=== PATIENT | female | born 1950 | race Caucasian/White ===

== ENCOUNTER 2023-11-09 21:36 | Inpatient (IN) | payer MEDICARE, SELFPAY ==
[2023-11-09] VITALS (8 sets, daily range): BP systolic 131–194; BP diastolic 87–167; BMI 45.3
--- NOTE | 2023-11-09 19:08 | ED.GENMED ---
History of Present Illness
General
Chief Complaint: Abdominal Symptoms
Source: patient and ambulance crew
Exam Limitations: altered mental status
Time Seen by Provider: 11/09/23 19:06
History of Present Illness
History of Present Illness:
See MDM
Past History
Past History
ED Past Medical History: Asthma, GERD, HTN, Hypercholesterolemia, NIDDM and Other (Gout)
ED Past Surgical History: Gynecological (D and C.)
Social History
Tobacco: Former smoker
Drug: None
Phy Exam
Physical Exam
Physical Exam:
See MDM
Course
Orders/Labs/Results
Orders:
Orders
11/09/23 19:06
CT Head W/o Iv Contrast Urgent
Comment:
Reason For Exam: Possible fall, found on ground, confused
IV Insert/Care/Rem.- Treatment PRN
0.9% Sodium Chloride 1000 ml [Nss] 1,000 ml IV BOLUS
Pantoprazole 80 mg/100 ml Nss [Protonix] 80 mg in 100 ml IV NOW
Pantoprazole [Protonix IV] 80 mg IV NOW STA
11/09/23 19:07
Electrocardiogram (*1) Stat
Reason for Study: Other
Other Reason for Exam: GI Bleed
EKG- Treatment ONCE
11/09/23 19:20
CT Cervical Spine W/o Iv Contr Urgent
Comment:
Reason For Exam: Possible fall, on ground, neck pain
11/09/23 19:27
Type+Screen Urgent
CPK [Creatine Phosphokinase] Urgent
Complete Blood Count/With Diff Urgent
Comprehensive Metabolic Panel Urgent
Lipase Urgent
11/09/23 20:14
PTT Urgent
Prothrombin Time Urgent
11/09/23 20:33
Urinalysis Urgent
11/09/23 20:34
Alcohol Urgent
Urine Drug Abuse Screen Urgent
11/09/23 21:01
CT Abd/pelvis W Iv Cont Urgent
Comment:
Reason For Exam: Mid abd pain, vomiting blood
Abnormal Lab Results
11/09/23
19:27
WBC 12.4 H 10^3/uL
(4.8-10.8)
RBC 5.94 H 10^6/uL
(4.20-5.40)
Hgb 18.6 H g/dL
(12.0-16.0)
Hct 54.1 H %
(37.0-47.0)
MCH 31.3 H pg
(27.0-31.0)
Abs Immat Gran (auto) 0.1 H 10^3/uL
(0-0.05)
Absolute Neuts (auto) 11.2 H 10^3/uL
(1.4-6.5)
Absolute Lymphs (auto) 0.6 L 10^3/uL
(1.2-3.4)
Neutrophils % 90.2 H %
(42.2-75.2)
Lymphocytes % 5.0 L %
(20.5-51.1)
Potassium 3.3 L mmol/L
(3.5-5.1)
Chloride 97 L mmol/L
(98-107)
BUN 26 H mg/dl
(7-17)
Creatinine 1.3 H mg/dL
(0.6-1.0)
Glucose 169 H mg/dl
(70-99)
Calcium 11.1 H mg/dl
(8.4-10.2)
Total Bilirubin 1.6 H mg/dl
(0.2-1.3)
AST 58 H U/L
(14-36)
Creatine Kinase 563 H U/L
(30-135)
Total Protein 8.5 H g/dl
(6.3-8.2)
11/09/23 19:27
11/09/23 19:27
Vital Signs
Initial and Last Documented VS:
Initial Vital Signs
Temp Pulse Pulse Ox
98.4 F 120 94
11/09/23 19:08 11/09/23 19:08 11/09/23 19:08
Last Documented Vital Signs
Temp Pulse Resp BP Pulse Ox
98.4 F 113 20 145/116 95
11/09/23 19:08 11/09/23 20:30 11/09/23 20:30 11/09/23 20:02 11/09/23 20:37
Procedures
IV Access
Indication: RN unable to obtain and Physician skill needed
Performed by:: Phoenix Gonzales DO
Site:: R arm
Gauge:: 18
Ultrasound Guidance: Yes
MDM/Problems Addressed
Differential Diagnosis Includes:
HPI and MDM Narrative:
73-year-old female presenting for evaluation of altered mental status and black vomit. Patient lives alone and the family was having trouble reaching out to her. They visited her and found her on the ground. Her face was covered in black vomit.
Patient is awake and alert but cannot recall if she fell and cannot recall how long she has been on the floor
Patient is confused but is awake and alert. Will obtain CT head. Will treat this is an upper GI bleed and start Protonix bolus and drip and ultimately admit
Physical exam
General: Well appearing and non-toxic
HEENT: protecting airway. Black vomit particles in oromucosa and face
Neck: appears supple
CV: No evidence of cyanosis. Tachycardia
Resp: No accessory muscle use
Abd: Non-distended. mid abd pain
Extremities: No deformities
Neuro: alert
Psych: Anxious
Skin: Intact
Problems Addressed including Acute and Chronic Conditions affecting care:
1. Upper GI bleed
Acuity: acute
Prognosis: unstable
Details: Will start Protonix drip and ultimately admit
2. Altered mental status
Acuity: acute
Prognosis: stable
Details: Will obtain CT head and basic blood work
Update: Case discussed with hospitalist. The CT head suggested motion artifact versus small subarachnoid. Will repeat CT head in a few hours. Given her abdominal pain and her symptoms, will obtain CT abdomen/pelvis
Differential Diagnosis (but not limited to): Symptomatic anemia, intracranial hemorrhage, upper GI bleed
Testing considered: CT abdomen/pelvis but no tenderness elicited
Drug therapy (if applicable): OTC meds, please see d/c instruction regarding Rx drugs
Amount and/or Complexity of Data Reviewed
Clinical info obtained from: Patient
External data reviewed: N/A
Labs I independently reviewed (but not limited to): Mild CPK elevation. Hemoglobin elevated. Mild leukocytosis
Radiology: The CT scan was personally and independently reviewed. In addition, official CT report reviewed.
Pulse Ox: not hypoxic
EKG independently reviewed: N/A
Mmi Teacher: N/A
Critical Care: The high probability of a clinically significant, sudden or life threatening deterioration of the gastrointestinal system(s) required my full and direct attention, intervention and personal management. The aggregate critical care time
was 31 minutes. This time is in addition to time spent performing reported procedures but includes the following:
[x] Data Review and interpretation
[x] Patient assessment and monitoring of vital signs
[x] Documentation
[x] Medication orders and management
Risk of Complication:
Social Determinants of health: Good social support
Discussed with other providers: Hospitalist
Escalation of Care includes Admit/Obs: Given concern for upper GI bleeding and altered mental status, will admit
Occasional wrong word or 'sound a like' substitutions may have occurred due to the inherent limitations of voice recognition software. Read the chart carefully and recognize, using context, where substitutions have occurred.
*Critical Care Note
Total Time (30-74mins, 75-104mins- exclusive of procedures): 31 min
ED Attending Note
-
Portions of this chart may have been created with voice recognition software.� Occasional wrong word or��sound alike� substitutions may have occurred due to the inherent limitations of voice recognition software.
Discharge Plan
Departure
Patient Disposition: Admit
Date of Disposition: 11/09/23
Time of Disposition: :24
Admit to: Telemetry
Presentation/result/management discussed w/ accepting MD/DO: Hospitalist
Discharge Problem:
UGIB (upper gastrointestinal bleed)
Prescriptions:
No Action
carvedilol 12.5 MG tablet
12.5 mg PO BID
pravastatin 40 MG tablet
40 mg PO HS
potassium chloride [Klor-Con M20] 20 MEQ tablet,ER particles/crystals
60 meq PO DAILY
Patient Comments:
09/20/2021: TAKE W/ 10MEQ= 70MEQ
aspirin 81 MG tablet,chewable
81 mg PO QPM
allopurinol 300 MG tablet
300 mg PO DAILY
potassium chloride 10 MEQ tablet,ER particles/crystals
10 meq PO DAILY
Patient Comments:
09/20/2021: TAKE W/ 60MEQ= 70MEQ
Spiriva Respimat 1 PUFF mist
2 puff inhalation R DAILY
albuterol sulfate 90 mcg/actuation Hfa Aerosol Inhaler
2 puff INHALATION R Q4 PRN (Reason: sob/wheezing)
losartan 100 mg tablet
100 mg PO DAILY
loperamide [Imodium] 2 mg Capsule
2 mg PO Q4H PRN (Reason: diarrhea)
Interventions
Interventions:
*Risk Screen - Suicide Last Done: 11/09/23 20:37
*General Assessment Last Done: 11/09/23 20:37
*Neglect/Abuse Screening Last Done: 11/09/23 20:37
ED- Fall Risk Assessment Last Done: 11/09/23 20:37
*ED COVID-19 Vaccine History Last Done: 11/09/23 20:37
PQ-Oyezvw-Rgbxszrgnu Assessment Last Done: 11/09/23 20:37
[2023-11-09 19:36] LABS: % Basophils 0.2 % (0-2); % Eosinophils 0.2 % (0-6); % Immature Granulocytes 0.4 % (0-0.5); % Neutrophils 90.2 % (42.2-75.2); Absolute Immature Granulocytes 0.1 10^3/uL (0-0.05); Absolute Lymphocytes 0.6 10^3/uL (1.2-3.4); Absolute Monocytes 0.5 10^3/uL (0.1-0.6); Absolute Neutrophils 11.2 10^3/uL (1.4-6.5); Hematocrit 54.1 % (37.0-47.0); Hemoglobin 18.6 g/dL (12.0-16.0); Mean Corp Hgb Conc. 34.4 g/dL (33.0-37.0); Mean Corpuscular Hgb 31.3 pg (27.0-31.0); Mean Corpuscular Volume 91.1 fL (81.0-99.0); Mean Platelet Volume 9.7 fL (7.4-10.4); Nucleated Red Blood Cells % 0 %; Platelet Count 260 10^3/uL (130-400); Red Blood Cell Count 5.94 10^6/uL (4.20-5.40); Red Cell Dist. Width 14.1 % (11.5-14.5); White Blood Cell Count 12.4 10^3/uL (4.8-10.8)
[2023-11-09 19:52] LABS: ALT (SGPT) 32 U/L (0-35); AST (SGOT) 58 U/L (14-36); Albumin 4.6 g/dl (3.5-5.0); Alkaline Phosphatase 118 U/L (38-126); Blood Urea Nitrogen 26 mg/dl (7-17); Calcium 11.1 mg/dl (8.4-10.2); Carbon Dioxide 30 mmol/L (22-30); Chloride 97 mmol/L (98-107); Creatine Phosphokinase 563 U/L (30-135); Estimated Creatinine Clearance 47 ml/min; Glucose 169 mg/dl (70-99); Lipase 55 U/L (23-300); Potassium 3.3 mmol/L (3.5-5.1); Sodium 140 mmol/L (135-145); Total Bilirubin 1.6 mg/dl (0.2-1.3); Total Protein 8.5 g/dl (6.3-8.2); eGFR 43.15
[2023-11-09] MEDS: NSS 1000 IV (20:18)
[2023-11-09] MEDS: PROTONIX IV 80 MG IV (20:21)
[2023-11-09] MEDS: PROTONIX 100 IV (20:29)
[2023-11-09 20:33] LABS: APTT 31.3 Sec (23.4-35.0); INR 0.96; PT 12.8 Sec (11.4-14.6)
[2023-11-09 21:28] LABS: Alcohol None Detected
--- NOTE | 2023-11-09 21:28 | HPS.HSE ---
Family Physician
-
Family Physician: Anabel Carver
Chief Complaint
-
Found Down
History of Present Illness
Patient is a 73y F with PMH significant for DM-II, obesity, CHF and diverticular disease who presents to ED after being found down at home this afternoon. History obtained from family at the bedside. Patient lives at home alone. Her sister was
out of town recently and was unable to reach the patient via e-mail or text - which is unusual. Upon returning home today, the sister called the patient and received no answer. She went to the home and went inside to find the patient lying on the
floor covered in copious, black vomitus. Patient was awake when the sister entered - but extremely confused. 911 was called and patient was brought to the ED for further evaluation.
Family last spoke with the patient on Monday evening - when she sounded more confused than usual.
She was last seen well last week.
Son states that patient was started on metformin for DM-II in June 2023. She developed profuse diarrhea and confusion.
This medication was stopped some time later (patient was seen in the ED here in July 2023 for her diarrhea complaints and stopped metformin at that time).
She has continued to have diarrhea since stopping the metformin. She has remained confused - some days better than others. She has been unable to manage her finances or other complex / cognitive tasks.
Son has taken over management of these issues.
Patient has been taking Imodium fairly regularly for her continued diarrhea. Diarrhea is described as loose and brown. Not black or grossly bloody.
Patient has not had abdominal pain recently. No reported fevers / chills.
She has complained of increased back pain - which is a chronic issue for her.
Patient is awake in the ED and answers some questions, but her recall is poor / unreliable. She cannot provide any recent history or explain how she ended up on the floor.
Family denies any habitual alcohol or drug use.
Medical History
Past Medical History
Past Medical History: Reports Other
Additional Past Medical History:
COPD
DM-II
Hypertension
DDD / Osteoporosis
CKD III
Morbid Obesity
Gout
Diverticular Disease
GERD / PUD
Past Surgical History: Reports Other
Additional Past Surgical History:
Cataracts
Social History
Tobacco: Former Smoker (Quit smoking 12 years ago. Approx 40 pack years total use.)
Alcohol: None
Drug: None
Living: Alone
Family History
Family History: Other (Father: Lung Cancer Sister: Lung Cancer)
Allergies / Home Medications
Allergies reflects when Allergies were last updated in [employer].
Home Medications with original date entered in [employer]
Allergy/Medication List:
Allergies
Allergy/AdvReac Type Severity Reaction Status Date / Time
Penicillins Allergy Hives Verified 11/09/23 21:16
Home Medications
allopurinol 300 mg tablet 300 mg PO DAILY Gout 09/20/21
aspirin 81 mg chewable tablet 81 mg PO QPM Blood clot prevention/tx 09/20/21
carvedilol 12.5 mg tablet 12.5 mg PO BID Heart disease/condition 09/20/21
potassium chloride 10 mEq tablet,extended release(part/cryst) 10 meq PO DAILY Electrolyte Repletion 09/20/21
potassium chloride 20 mEq tablet,extended release(part/cryst) (Klor-Con M) 60 meq PO DAILY Electrolyte Repletion 09/20/21
pravastatin 40 mg tablet 40 mg PO HS High cholesterol 09/20/21
tiotropium bromide 2.5 mcg/actuation mist for inhalation (Spiriva Respimat) 2 puff inhalation R DAILY Lung/breathing issues 09/20/21
albuterol sulfate 90 mcg/actuation aerosol inhaler 2 puff inhalation R Q4 PRN sob/wheezing 11/09/23
loperamide 2 mg capsule 2 mg PO Q4H PRN diarrhea 11/09/23
losartan 100 mg tablet 100 mg PO DAILY 11/09/23
Review of Systems
-
History Source: Patient and Family
A 12 point ROS was completed and negative except as noted: Yes
Constitutional: Reports Fatigue and Chills
Respiratory: Denies Cough or Trouble Breathing
Cardiac: Denies Chest Pain or Palpitations
Abdomen/GI: Reports Abdominal Pain, Nausea, Vomiting and Diarrhea; Denies Bloody Stools or Black Stools
Musculoskeletal: Reports Other (Back Pain); Denies Edema
Neurological: Denies Dizzy or Headache
Physical Exam
Vital Signs
Vital Signs
Temp Pulse Resp BP Pulse Ox
98.4 F 116 26 175/113 95
11/09/23 19:08 11/09/23 21:02 11/09/23 21:02 11/09/23 21:02 11/09/23 20:37
Physical Exam
General: Other (Ill-appearing, morbidly obese 73y F with black vomitus over her face / head. Awake but confused / disoriented.)
HEENT: Other (Dry MM. Dental implants. Black vomitus residual in oropharynx. No red blood noted.)
Respiratory: Other (Decreased at bases - otherwise clear.)
Cardiac: S1/S2 and Regular Rhythm; No Murmur
GI: Other (Obese, diffusely tender. Bowel sounds present but diminished.)
Musculoskeletal: No Clubbing, No Cyanosis and Other (Mild rash / nodules at ankles bilaterally. LE edema that appears decreased from baseline (skin changes / wrinkling evident))
Neuro: Awake and Nonfocal/grossly intact (Moves all extremities.); No Alert, Oriented or Facial Droop
Psych: Anxious
Laboratory Results
-
11/09/23 19:27
11/09/23 19:27
Laboratory Results
PT 12.8 Sec (11.4-14.6) 11/09/23 20:14
INR 0.96 11/09/23 20:14
APTT 31.3 Sec (23.4-35.0) 11/09/23 20:14
Total Bilirubin 1.6 mg/dl (0.2-1.3) H 11/09/23 19:27
AST 58 U/L (14-36) H 11/09/23 19:27
ALT 32 U/L (0-35) 11/09/23 19:27
Alkaline Phosphatase 118 U/L (38-126) 11/09/23 19:27
Lipase 55 U/L (23-300) 11/09/23 19:27
Impression/Plan
-
A/P: Patient is a 73y F with PMH significant for COPD, CKD, hypertension and DM-II who presents to ED via EMS after being found down and covered in black vomitus.
Found Down
Acute TME
Rhabdomyolysis
Hypovolemia
- Admit to ICU for further evaluation and treatment.
- Unclear when patient suffered fall / ended up on the floor and what the mechanism was.
- Last spoken to on Monday evening.
- Evidence for UGI bleeding at some point (see below).
- Marked hypovolemia by labs - likely secondary to GI losses (emesis and chronic diarrhea).
- IVF support.
- Monitor on telemetry.
- Follow CPK levels and adjust IVs as needed for correction of electrolyte abnormalities, volume status, etc.
- Follow for improvement in mental status.
- Alcohol level, UDS pending though family denies any history of these issues.
UGIB
GERD / PUD
- Patient covered in black vomitus - likely had significant UGI bleeding, but question timing?
- Currently hemoconcentrated with Hgb = 18.
- Continue IV PPI infusion.
- Follow H&H and transfuse if needed - suspect Hgb will decrease with volume expansion.
- Patient / family deny any NSAIDs use - takes only Tylenol for pain. Baby ASA daily.
- GI evaluation for additional recommendations / eventual EGD.
- Monitor for any new / recurrent emesis or bleeding.
CHARLY on CKD III
- SCr = 1.3 compared to baseline of 0.7 to 1.
- Likely prerenal secondary to volume losses.
- IVF support as noted above. Follow for improvement in renal function.
Chronic Diarrhea
Abdominal Pain
- Reportedly started in 06/2023 with metformin but has persisted since despite stopping this med and regular Imodium use.
- Check stool studies.
- Quantify diarrhea / stool losses if any while here.
- GI evaluation as noted above.
- Remain off of metformin.
- CT A/P given abdominal tenderness on exam.
- Prior h/o diverticular disease, small AAA, etc.
Abnormal CT Head
- CT head done in the ED read as possible motion artifact in the L parietal lobe sulcus - cannot r/o small subarachnoid blood.
- Repeat CT head in a few hours to assess for changes / stability.
- Follow serial neurologic exams for any changes.
DM-II
- Holding PO meds / metformin / etc.
- Follow glucose and cover with SSI if needed.
- Update A1C.
Morbid Obesity due to excess calories
- Affects all aspects of care.
- Encourage healthy diet and increased mobility as able for goal of weight loss.
DVT Prophylaxis: SCDs
Code Status: Full
[2023-11-09 21:36] LABS: Urine Albumin 1+ (Neg - Trace); Urine Bilirubin Negative (Negative); Urine Character Clear (Clear); Urine Color Yellow; Urine Glucose Trace (Negative); Urine Ketone 1+ (Negative); Urine Leukocyte Negative (Negative); Urine Nitrite Negative (Negative); Urine Occult Blood 2+ (Negative); Urine Specific Gravity 1.015 (<1.030); Urine Urobilinogen Negative (Neg - 1+)
[2023-11-09 21:45] LABS: Urine Bacteria Few (Negative)
[2023-11-09 22:05] LABS: Amphetamines Negative (Negative); Barbiturates Negative (Negative); Benzodiazepines Negative (Negative); Buprenorphine Negative (Negative); Cocaine Negative (Negative); Marijuana Negative (Negative); Methadone Negative (Negative); Methamphetamines Negative (Negative); Opiates Negative (Negative); Phencyclidine Negative (Negative)
[2023-11-09 22:06] LABS: Tricyclic Antidepressants Negative (Negative)
[2023-11-09 22:25] LABS: Lactic Acid 2.5 mmol/L (0.7-2.0)
[2023-11-09] MEDS: NSS with KCL 20 MEQ 1000 IV (23:45)
[2023-11-09 23:58] LABS: Glucose - Point of Care 118 mg/dl (70-99)
[2023-11-10] VITALS (35 sets, daily range): BP systolic 120–185; BP diastolic 64–147; BMI 44.7
--- NOTE | 2023-11-10 00:50 | PTCARENOTE ---
Rec'd care of patient from ED around 2244. Patient confused. Alert to only self. Nonsensical speech and slow to respond at times. Pupils equal and reactive; 3mm. Weak hand grasps. Wiggling toes upon request. Profound weakness. Per patient, RW
utilized at baseline. Pt's sister and son at bedside. Stating patient's confusion has been progressing over the past few months. ST on tele monitor. Rate in the 110-120's. BP elevated. [employer] Zafar Michelle notified. Patient placed on O2 for POX in the
high 80's. POX up to 92-95% on 2L nc. Lung sounds shallow/diminished throughout. Fine crackles auscultated in left base. No BM. Patient's son unsure when last bowel movement was. Purewick in place for urinary incontinence. PPI gtt and NSS with KCl
infusing through RAC. Bed alarm on. Safe environment maintained.
[2023-11-10 01:51] LABS: Iron 56 ug/dl (37-170)
[2023-11-10 02:00] LABS: Percent Saturation 19 % (20-50); Total Iron Binding Capacity 286 ug/dl (265-497)
[2023-11-10 02:01] LABS: Hematocrit 45.3 % (37.0-47.0); Hemoglobin 15.8 g/dL (12.0-16.0)
[2023-11-10 02:52] LABS: TSH Reflex To Free T4 0.55 uIU/ml (0.47-4.68)
[2023-11-10 03:11] LABS: Vitamin B12 791 pg/ml (239-931)
--- NOTE | 2023-11-10 03:40 | PTCARENOTE ---
Pt with no urine output since admission to ICU. Per ED RN, Rena, pt straight cath'd at 2130 for urine specimen. Bladder scanned for 195 cc's.
[2023-11-10 04:07] LABS: Hematocrit 44.3 % (37.0-47.0); Hemoglobin 15.3 g/dL (12.0-16.0); Mean Corp Hgb Conc. 34.5 g/dL (33.0-37.0); Mean Corpuscular Hgb 31.4 pg (27.0-31.0); Mean Corpuscular Volume 90.8 fL (81.0-99.0); Mean Platelet Volume 10.3 fL (7.4-10.4); Platelet Count 211 10^3/uL (130-400); Red Blood Cell Count 4.88 10^6/uL (4.20-5.40); Red Cell Dist. Width 13.9 % (11.5-14.5); White Blood Cell Count 15.5 10^3/uL (4.8-10.8)
--- NOTE | 2023-11-10 04:11 | PTCARENOTE ---
Patient reassessed. Minor changes in assessment. Remains oriented to only self. Pleasantly confused conversation. ST with rate in the 110-120's. POX 94% on 2Lnc. Fine crackles increased to b/l bases. Patient denies dyspnea. Small amount of urine
voided with turn. AM labs sent.
[2023-11-10 04:29] LABS: Lactic Acid 1.7 mmol/L (0.7-2.0)
[2023-11-10 04:58] LABS: ALT (SGPT) 26 U/L (0-35); AST (SGOT) 46 U/L (14-36); Albumin 3.2 g/dl (3.5-5.0); Alkaline Phosphatase 88 U/L (38-126); Blood Urea Nitrogen 30 mg/dl (7-17); Calcium 9.6 mg/dl (8.4-10.2); Carbon Dioxide 28 mmol/L (22-30); Chloride 105 mmol/L (98-107); Creatine Phosphokinase 504 U/L (30-135); Direct Bilirubin 0.2 mg/dl (0.0-0.4); Estimated Creatinine Clearance 50 ml/min; Glucose 121 mg/dl (70-99); Magnesium 2.1 mg/dl (1.6-2.3); Phosphorus 4.3 mg/dl (2.5-4.5); Sodium 141 mmol/L (135-145); Total Bilirubin 1.2 mg/dl (0.2-1.3); Total Protein 6.1 g/dl (6.3-8.2)
[2023-11-10] MEDS: KCL 270 MEQ IV (05:56)
[2023-11-10 06:15] LABS: Glucose - Point of Care 111 mg/dl (70-99)
--- NOTE | 2023-11-10 06:55 | CON.MD ---
Consultation - Medical
-
see dictated note
pt brought in acutely ill- vomiting
can not relate any hx- son denies any prior gu hx and none noted in chart
in 2021 had perforated diverticulitis- kidneys normal at that time- no knoen intervention afterwards
CT scan on admit- new right hydro with dilated ureter to pelvis with ? small tissue mass
ua with minimal hematuira- no obvious UTI
cr normal
plan
do not believe at this time hydro is contributing factor to acute illness
at some point- would need cysto/ureteroscopy
given appearance of ureter- unsure if retrograde stent placementwill be possible
will speak to IR regarding perc tube- could be very difficult given pt's size- but this would likely be the only means to relieve obstruction
will follow closely
[2023-11-10] MEDS: PROTONIX 100 IV ×2 (07:22→17:56)
--- NOTE | 2023-11-10 08:00 | PTCARENOTE ---
Received pt @ change of shift, pt. drowsy, opens eyes spontaneously; pupils 3mm, brisk, perrla. Oriented to self/situation. Required reorientation to time/place. Slow/garbled speech pattern. Able to move all extremities but not lift off bed,
profound weakness. ST w PAC's on monitor. SpO2 94% on 3LNC. ABD soft/obese, hypoactive BS; NPO status maintained. Inc/oliguric; bc/sc prn. #22 L hand patent w Protonix gtt and K+ rider infusing. Pt.'s son @ bedside. Safe environment maintained.
--- NOTE | 2023-11-10 08:57 | CON.GI ---
Addendum entered and electronically signed by Mack Lynch MD 11/10/23 10:39:
I saw and examined the patient.
The PHONE CIRCUIT OPERATOR or PA's note was reviewed and I agree with the note.
Comment: 73yo female found down at home lying in black emesis. She is confused and I obtained history from son at bedside. She began with confusion and diarrhea in July after starting metformin. This was d/c'd but sx persisted. Her confusion
progressed and is now incoherent. Son reports hx of ulcer in past so she does not take NSAIDs. CT abd shows new severe R hydro and 8mm nodular focus in R ureter as well as 5.6cm R adenxal cyst. CT head shows small focus c/w blood in L parietal
lobe. Urology and Neurosurgery have been consulted. Hgb 18 on admission down to 15 and stable. No further emesis in hospital
REC:
Continue protoix gtt
Would hold off on EGD at this time given her other Urologic and Neurosurgical issues and her lack of ongoing bleeding
Continue to trend Hgb and we can do EGD if signs of ongoing bleeding
Check stool r/o C diff, culture
Will follow
Original Note:
Consultation
-
Date/Time Consultation Requested: 11/09/2023 @ 22:44
Date/Time Consultation Performed: 11/10/23 @ 09:00
Requesting Provider: Dr. Orellana
Performing Provider: ROBERT Salazar; Dr. Mack Lynch
Reason for Consultation: UGIB
Medical History
Chief Complaint / HPI
Chief Complaint: found down
History of Present Illness:
The patient is a 73-year-old female who is a poor historian but EMR notes a past medical history significant for COPD, hypertension, gout, chronic kidney disease stage III, osteoporosis, chronic pain syndrome on tramadol, chronic diastolic heart
failure, hyperlipidemia, prediabetes previously on metformin, morbid obesity, who presented to the emergency room after being found down at home. We are being asked to evaluate for possible upper GI bleed. Upon review of admitting records, the
patient had been found down at home after her family was unable to get a hold of her over the past few days. It was noted she was found covered in black emesis and had been confused. Her son is at the bedside and reports that she has had
increasing confusion recently along with ongoing diarrhea. He notes that she had been started on metformin as she is prediabetic but due to profuse diarrhea this was stopped, although she has continued to have diarrhea. He notes that she does use
Imodium for her diarrhea as it has continued despite stopping Metformin, although he does not note how often she takes this. She has had no complaints of abdominal pain although when I press on her belly she does say that there is some discomfort
in the upper abdomen. Her son believes that she did have ulcers in the past but this history is unclear. Per her outpatient medical record she does take famotidine as needed but no PPI therapy. She has also refused colonoscopies and Cologuard as
per her PCP notes, and was ordered a fit test. Per nursing she has had no bowel movements since admission. She does not recall when her last colonoscopy was. It is unknown if she has ever had an EGD as her son was unsure. He reports that she
does take Tylenol for pain but does not use NSAIDs other than 81 mg of aspirin for cardiac purposes. She does have a history of perforated diverticulitis which was contained and surgery was deferred. She was treated with IV antibiotics at that
time back in 2021. She has had no GI surgeries as per her son. He also notes that she has been known historically to be somewhat noncompliant on her medical care. On admission she underwent a CT scan which showed new severe right-sided
hydronephrosis with possible ureteral neoplasm. No acute GI findings otherwise. She underwent a CT of the head which showed a small linear focus of hyperattenuation in the left parietal lobe felt to be secondary to motion artifact versus
subarachnoid bleed. Cervical spine CT was negative for acute fracture or dislocation but did show a large left thyroid lobe mass/nodule. Hemoglobin upon admission was 18.6, likely consistent with hemoconcentration. Repeat hemoglobin was 15.8 and
has been 15.3 this morning with no active signs of bleeding. She has had no further vomiting as per nursing. Noted with a rising WBC 15.5 this morning platelets and INR are normal. Other pertinent findings include potassium 3.0, BUN 30,
creatinine 1.2, lactic acid 2.5, total bilirubin 1.2, direct bilirubin 0.2, AST 46, ALT 26, alk phos 88, CPK 504, TSH 0.55, vitamin B12 791. UA without signs of infection. Urine drug screen and alcohol levels were negative. She was made n.p.o.
and admitted for further evaluation by neurosurgery, urology, and GI. PPI drip was started in the emergency room.
Past Medical History
Past Medical History: CHF, COPD, GERD (? Peptic ulcer disease), HTN, Hypercholesterolemia and Other (Prediabetes, osteoarthritis, chronic pain, gout, morbid obesity, chronic kidney disease stage III)
Past Surgical History: Other (Bilateral cataract surgery)
Social History
Tobacco: Former Smoker
Alcohol: None
Drug: None
Living: Alone
Family History
Family History: Cancer (Lung cancer of sister and father; no reported family history of colorectal cancer)
Allergies / Home Medications
Allergy/AdvReac Type Severity Reaction Status Date / Time
Penicillins Allergy Hives Verified 11/09/23 21:16
Medication Instructions Recorded
allopurinol 300 mg tablet 300 mg PO DAILY Gout 09/20/21
aspirin 81 mg chewable tablet 81 mg PO QPM Blood clot 09/20/21
prevention/tx
carvedilol 12.5 mg tablet 12.5 mg PO BID Heart 09/20/21
disease/condition
potassium chloride 10 mEq 10 meq PO DAILY Electrolyte 09/20/21
tablet,extended release(part/cryst) Repletion
potassium chloride 20 mEq 60 meq PO DAILY Electrolyte 09/20/21
tablet,extended Repletion
release(part/cryst) (Klor-Con M)
pravastatin 40 mg tablet 40 mg PO HS High cholesterol 09/20/21
tiotropium bromide 2.5 2 puff inhalation R DAILY 09/20/21
mcg/actuation mist for inhalation Lung/breathing issues
(Spiriva Respimat)
albuterol sulfate 90 mcg/actuation 2 puff inhalation R Q4 PRN 11/09/23
aerosol inhaler sob/wheezing
loperamide 2 mg capsule 2 mg PO Q4H PRN diarrhea 11/09/23
losartan 100 mg tablet 100 mg PO DAILY 11/09/23
Review of Systems
-
Unable to obtain full review of systems at this time due to: Acuity
History Source: Family
Abdomen/GI: Reports Other (Coffee-ground emesis)
Neurological: Reports Other (Confusion)
Vital Signs
Temp Pulse Resp BP Pulse Ox
98.1 F 120 28 136/78 94
11/10/23 08:00 11/10/23 08:15 11/10/23 08:15 11/10/23 08:00 11/10/23 08:22
Physical Exam
Exam
General: Pain and Other (Morbidly obese, chronically ill-appearing female)
HEENT: Normocephalic and Anicteric
Respiratory: Non Labored Respirations and Other (Diminished breath sounds bilaterally, supplemental oxygen in place)
Cardiac: S1/S2, Regular Rhythm and Other (Sinus tachycardia on telemetry monitoring in the 120)
Breast: Deferred by me
GI: Soft, Non Distended, Tender (Mid-upper abdomen) and Other (Reduced/hypoactive bowel sounds)
Skin: Warm and Dry
Neuro: Awake (Eyes closed but arousable answering some questions appropriately and others not appropriate) and Other (Confused)
Psych: Other (Restless)
Results
WBC 15.5 10^3/uL (4.8-10.8) H 11/10/23 03:55
Hgb 15.3 g/dL (12.0-16.0) 11/10/23 03:55
Hct 44.3 % (37.0-47.0) 11/10/23 03:55
MCV 90.8 fL (81.0-99.0) 11/10/23 03:55
Plt Count 211 10^3/uL (130-400) 11/10/23 03:55
Absolute Neuts (auto) 11.2 10^3/uL (1.4-6.5) H 11/09/23 19:27
PT 12.8 Sec (11.4-14.6) 11/09/23 20:14
INR 0.96 11/09/23 20:14
APTT 31.3 Sec (23.4-35.0) 11/09/23 20:14
Sodium 141 mmol/L (135-145) 11/10/23 03:55
Potassium 3.0 mmol/L (3.5-5.1) L 11/10/23 03:55
Chloride 105 mmol/L (98-107) 11/10/23 03:55
Carbon Dioxide 28 mmol/L (22-30) 11/10/23 03:55
BUN 30 mg/dl (7-17) H 11/10/23 03:55
Creatinine 1.2 mg/dL (0.6-1.0) H 11/10/23 03:55
Calcium 9.6 mg/dl (8.4-10.2) D 11/10/23 03:55
Total Bilirubin 1.2 mg/dl (0.2-1.3) 11/10/23 03:55
AST 46 U/L (14-36) H 11/10/23 03:55
ALT 26 U/L (0-35) 11/10/23 03:55
Alkaline Phosphatase 88 U/L (38-126) 11/10/23 03:55
Lipase 55 U/L (23-300) 11/09/23 19:27
Diagnostic Image Results:
11/09/2023 CT A/P w/IV contrast: �
'1) New severe right hydronephrosis and hydroureter with an abrupt transition at the level of the mid ureter where there is an 8 mm nodular focus of enhancement, raising concern for a ureteral neoplasm.
2. Increased size of a simple appearing cystic lesion in the right adnexa, now measuring up to 5.6 cm.
3. Chronic findings otherwise appear similar compared to the CT abdomen/pelvis from 09/20/2021.'
11/09/2023 CT head: 'Small linear focus of hyperattenuation in a left parietal lobe sulcus, which may be related to motion artifact. Minimal subarachnoid blood products are not excluded and a short-term follow-up head CT can be considered for
reevaluation.'
11/09/2023 CT Head: FINDINGS/IMPRESSION: 'Persistent small focus of increased attenuation in the left parietal lobe, which would favor mild blood products rather than artifact. This measures 6 mm and is stable in size compared to the head CT from
earlier in the same day. Additional findings are unchanged from prior.'
11/09/2023 CT Cervical spine: 'No acute fracture or dislocation. Large left thyroid lobe mass/nodule. Recommend further evaluation with a thyroid ultrasound on an outpatient basis.'
Prior GI Procedures:
EGD: Unknown
Colonoscopy: Unknown
Assessment / Plan
-
The patient is a 73-year-old female who is a poor historian but EMR notes a past medical history significant for COPD, hypertension, gout, chronic kidney disease stage III, osteoporosis, chronic pain syndrome on tramadol, chronic diastolic heart
failure, hyperlipidemia, prediabetes previously on metformin, morbid obesity, who presented to the emergency room after being found down at home. We are being asked to evaluate for possible upper GI bleed. Per EMR and this time the patient has had
progressive confusion with diarrhea. Historically not compliant. Had been found down at home covered in dark emesis with complaints of abdominal pain. CT findings showing severe right-sided hydronephrosis which is new with concern for ureteral
neoplasm. Urology is following. CT cervical spine also showing a large thyroid nodule/mass. Hemoglobin 18.6 on admission down to 15.5 after IV hydration. She has had no further vomiting with no bowel movements since admission. Started on PPI
drip. She has been persistently confused with CT of the brain showing concern for possible bleed. Neurosurgery consult is pending. Currently with no signs of bleeding.
Problem list:
-Coffee-ground emesis
-? History of peptic ulcer disease
-Altered mental status
-CT imaging showing severe right-sided hydronephrosis, questionable ureteral neoplasm
-Large thyroid nodule/mass seen on CT
-Leukocytosis
-History of contained perforation secondary to diverticulitis 2021, did not require surgical intervention
-Chronic diarrhea
-CHARLY on CKD
-Hypokalemia
-Elevated CPK, rhabdomyolysis
Other pertinent medical history:
-Morbid obesity
-COPD
-Hypertension
-Gout
-Chronic pain syndrome on tramadol
-Chronic diastolic heart failure
-Hyperlipidemia
-Prediabetes
Recommendations:
-Etiology of coffee-ground emesis possibly secondary to upper GI source such as peptic ulcer disease, erosive gastritis versus constipation (with ongoing use of Imodium) versus vomiting secondary to urology findings versus other.
---CT imaging as above. She has had no further vomiting and her hemoglobin is 15.3 this morning. Likely hemoconcentrated with initial hgb 18.6 on admission. There is a reported history of possible peptic ulcer disease although this is unclear as
to when and how this was treated.
-Will continue PPI drip for now. If no further vomiting episodes and her hemoglobin remained stable likely can transition to PPI twice daily
-If concern for ongoing bleeding, can consider EGD for further evaluation. Will await workup/evaluation by urology and neurosurgery as urological findings may have contributed to her vomiting.
-N.p.o. for now, consider clear liquid diet when she is more awake and alert as long as there are not plans from neurosurgery or urology for testing/procedures
-Avoid NSAIDs
-Consider x-ray of the abdomen to evaluate for fecal burden/obstructive process if recurrent vomiting, although not evident on CT imaging (limited without oral contrast)
-Trend H&H
-ICU level of care and further management as per ICU team
-Consider further infectious workup with increasing leukocytosis, defer to medical team
-IV fluids as per hospitalist
-No diarrhea currently, can have nonurgent outpatient evaluation for this
-Will follow
-
-
Thank you for consultation and allowing me to participate in the patient's care. Please call the orthodontic treatment coordinator GI physician during the after hours with any questions or concerns.
[2023-11-10 09:19] LABS: Glycohemoglobin (HgbA1c) 5.5 % (4.0-5.6)
--- NOTE | 2023-11-10 09:36 | W.PN.HOSP.TC ---
Today's Communication/Plan
-
Await neurosurgery evaluation
If GI agrees trial of clears
Speech evaluation
Cultures
Replace potassium
If spikes a fever she may need percutaneous nephrostomy to be placed
Assessment / Plan
Assessment / Plan
73-year-old female lives at home and gets help from sister. Sister recently was away on vacation was not able to get in touch with the patient which is unusual therefore checked on her upon returning home and found the patient was on the floor
covered in black vomitus. She is also confused. Patient is a poor historian. Son is at bedside he does not give me a good history either.
Son states that she has been confused since June or July when she was started on metformin which she states was not for diabetes but for elevated blood sugars. Then she was taken off of it because of diarrhea and also confusion. Her
confusion has not gotten better. He also states that she has been confused more lately. When asked if she has been taking and states patient states yes but again poor historian. Son states that she only takes Tylenol but he does not live with her.
On examination patient is poorly kempt
Confused
Does not know where she is or time
Answers questions but not appropriately
Cardiovascular system S1-S2 appreciated
Chest clear to auscultation decreased breath sounds at bases
Abdomen soft has some tenderness in the Right side and right CVA
Lower extremity bilateral edema noted
Neuro exam is difficult but able to move all extremities and no facial droop noted
# Coffee-ground emesis
Hemoglobin stable
Continue PPI infusion
Follow H&H
Unclear if she was taking any NSAIDs
Does not seem to be on any anticoagulants. Takes aspirin 81 mg daily
GI evaluation
Allow clears if GI is okay with that plan since no EGD planned.
# Leukocytosis-does not look like a UTI
Chest x-ray reviewed by me-no evidence of pneumonia
If develops fever start antibiotics
Check urine and blood cultures
# CHARLY on CKD stage III
Likely prerenal
Also compromised right kidney function
Continue IV fluids and follow creatinine
Hold losartan
# Chronic diarrhea
Started after metformin in June and gotten better per son
Check stool studies while here
Never had a colonoscopy
Remains off of metformin now
# Abnormal CAT scan of the head cannot rule out small subarachnoid bleeding
Repeat CAT scan confirms blood products-stable size
Neurosurgery evaluation requested
Follow neuroexam
# Hydronephrosis on the right side which is new since 2021 with a small tissue mass possible
Unclear if right adnexal mass is pushing
# Diabetes-check hemoglobin A1c
Accu-Cheks and sliding scale coverage for now
# Hypokalemia-replace IV
# Mild rhabdomyolysis-getting IV fluids
# Mild lactic acidosis-improved
#Large left thyroid lobe mass/nodule-needs an ultrasound and further workup as outpatient
Normal TSH
# Chronic heart failure with preserved ejection fraction
Follows with Dr. Jourdan Moon
Patient is on Coreg, losartan as outpatient
Hold losartan
son thinks she was on Lasix at 1 point not on The med list now
EKG sinus tachycardia with PACs
Echo 01/18/2022-technically difficult study. Normal biventricular size and function without regional wall motion abnormalities no change since 2018
# Hypertension-continue Coreg hold losartan
# Hyperlipidemia/atherosclerosis-continue statin
# GERD-PPI
# Asthma/COPD
Continue as needed albuterol, Spiriva or equivalent
# Gout-continue allopurinol
# History of perforated diverticulitis 2021
# Hypoalbuminemia
# Sleep apnea-noncompliant with CPAP
# Calcified uterine fibroids, cystic lesion in the right adnexa 5.6 cm which previously measured 4 cm
This was found in 2021 and outpatient [employer] EXTENSION EDUCATOR follow-up recommended at that time
# Morbid Obesity-affects all aspects of care
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
Osteopenia
# Hepatic steatosis
# Cognitive dysfunction-looks like she has been gradually declining
# Ex-smoker
# DVT prophylaxis-SCDs
Discussed with charge account authorizer
Discussed with nursing
Discussed with GI
Discussed with urology
Discussed with patient's son
If we get patient's sisters number-may get more history
Total Critical Care Time 45 minutes. I was immediately available to the patient and staff. I personally examined, reviewed labs, diagnostic images/reports, interpretations, treatment plans, discussed patient care with other providers and family ,
entered orders as appropriate and documented the medical record.
Anticipated Discharge: > 48 hours
Subjective/Interval History
-
Date of Service: November 10, 2023
Objective Data
-
Labs:
Laboratory Results
11/10/23 11/10/23
01:30 03:55
WBC 15.5 H
Hgb 15.8 15.3
Hct 45.3 44.3
Plt Count 211
Sodium 141
Potassium 3.0 L
Chloride 105
Carbon Dioxide 28
BUN 30 H
Creatinine 1.2 H
Glucose 121 H
Calcium 9.6 D
Total Bilirubin 1.2
AST 46 H
ALT 26
Alkaline Phosphatase 88
Vital Signs:
Vital Signs
Temp Pulse Resp BP Pulse Ox
98.1 F 120 28 136/78 94
11/10/23 08:00 11/10/23 08:15 11/10/23 08:15 11/10/23 08:00 11/10/23 08:22
I&O
11/09/23 11/10/23 11/11/23
06:59 06:59 06:59
Intake Total 1037.5 / 1115.0 155.0 / 155.0
Balance 1037.5 / 1115.0 155.0 / 155.0
[2023-11-10] MEDS: SPIRIVA RESPIMAT 2.5 MCG INH (11:35)
[2023-11-10] MEDS: COREG PO ×3 (11:59→20:23)
[2023-11-10] MEDS: ZYLOPRIM PO ×2 (12:03→12:21)
[2023-11-10 12:05] LABS: Glucose - Point of Care 104 mg/dl (70-99)
[2023-11-10] MEDS: NSS with KCL 20 MEQ 1000 IV ×2 (12:07→17:56)
--- NOTE | 2023-11-10 12:11 | CON.INTV ---
Consultation
Consultation Request
Date/Time Consultation Requested: 11/10/2023
Date/Time Consultation Performed: 11/10/2023
Requesting Provider: Dr. Moore
Performing Provider: Dr. Catalino Diaz
Reason for Consultation: Intracranial hemorrhage
Medical History
-
History of Present Illness:
This is a 73-year-old female who lives at home with help from her sister. Apparently patient was found at home in the floor covered in dark vomitus. She also was confused. Details of the history are not clear.
Apparently there is reports of some confusion since June or July. Stat history is not that reliable at this point. Per records patient reports being on metformin that possibly cause some of the problems.
Past Medical History
Past Medical History: Other (See assessment and plan finding)
Family History
Family History: Other (Difficult to obtain due to confusion)
Allergies / Home Medications
Allergies
Allergy/AdvReac Type Severity Reaction Status Date / Time
Penicillins Allergy Hives Verified 11/09/23 21:16
Home Medications
Medication Instructions Recorded Confirmed Last Taken Type
allopurinol 300 mg tablet 300 mg PO DAILY Gout 09/20/21 11/09/23 Unknown History
aspirin 81 mg chewable tablet 81 mg PO QPM Blood clot 09/20/21 11/09/23 Unknown History
prevention/tx
carvedilol 12.5 mg tablet 12.5 mg PO BID Heart 09/20/21 11/09/23 Unknown History
disease/condition
potassium chloride 10 mEq 10 meq PO DAILY Electrolyte 09/20/21 11/09/23 Unknown History
tablet,extended release(part/cryst) Repletion
potassium chloride 20 mEq 60 meq PO DAILY Electrolyte 09/20/21 11/09/23 Unknown History
tablet,extended Repletion
release(part/cryst) (Klor-Con M)
pravastatin 40 mg tablet 40 mg PO HS High cholesterol 09/20/21 11/09/23 Unknown History
tiotropium bromide 2.5 2 puff inhalation R DAILY 09/20/21 11/09/23 Unknown History
mcg/actuation mist for inhalation Lung/breathing issues
(Spiriva Respimat)
albuterol sulfate 90 mcg/actuation 2 puff inhalation R Q4 PRN 11/09/23 11/09/23 Unknown History
aerosol inhaler sob/wheezing
loperamide 2 mg capsule 2 mg PO Q4H PRN diarrhea 11/09/23 11/09/23 Unknown History
losartan 100 mg tablet 100 mg PO DAILY Blood Pressure 11/09/23 11/09/23 Unknown History
Review of Systems
-
History Source: Patient
All other systems: Negative unless noted
Vitals / Labs / Diagnostic Testing
Vital Signs
Temp Pulse Resp BP Pulse Ox
98.1 F 120 19 146/69 92
11/10/23 11:30 11/10/23 11:59 11/10/23 10:15 11/10/23 11:59 11/10/23 10:15
Lab Data
11/10/23 03:55
11/10/23 03:55
Laboratory Results
11/09/23 11/09/23
19:27 20:14
PT Cancelled 12.8
INR Cancelled 0.96
APTT Cancelled 31.3
Diagnostic Testing:
Physical Exam
-
HEENT: Normocephalic
Cardiovascular: S1/S2
Respiratory: Clear and Non-Labored Respirations
GI: Soft and Non Distended
Neurology: Awake, Alert and Other (Confused, moving 4 extremities.)
General: Respiratory Distress (n)
Assessment
-
Intracranial bleed on CAT scan of the head-transferred to the critical care unit for close monitoring.
Altered mental status
Coffee-ground emesis-upper GI bleed suspected
Leukocytosis possibly reactive
Acute kidney injury on CKD-likely prerenal due to volume depletion
Hypokalemia
Rhabdomyolysis-mild possibly status post falling
Right hydronephrosis new finding since 2021.
? Chronic diarrhea
Incidental large left thyroid mass
Conditions present prior admission:
Diabetes
Heart failure with preserved ejection fraction
Echocardiogram 01/18/2022: Normal biventricular size and function.
Hypertension
Hyperlipidemia
GERD
COPD-moderate in degree based on prior pulmonary function testing: On a Spiriva
Follows up with Dr. Mclaughlin
Last visit 06/2023. She was recommended to transition to [facility]. Has not followed up since
Gout
History of perforated diverticulitis
Sleep apnea-Per outpatient records from Dr. Mclaughlin, patient declined further evaluation.
Morbid obesity
Chronic arthritis
Hepatic asteatosis
Cognitive dysfunction
Former smoker
Plan/ recommendations:
Altered mental status: Toxic metabolic encephalopathy on possible ? underlying dementia.
-
Mild rhabdomyolysis
Continue to correct dehydration-no IV fluids.
So far no evidence for infection
CT of the head noted: Neurosurgery evaluated the patient. Case has been discussed. Unlikely will need any intervention at this point. Possible eventual MRI in the future.
TSH was normal
B12 was normal
Normal LFTs
Check a random cortisol level.
Chest x-ray this admission without any acute pulmonary process.
Dehydration/hypokalemia/acute kidney injury
IV potassium being repleted
Repeat BMP later.
Continue IV fluids
Leukocytosis without fever
Observing off antibiotic
Cultures were sent
Coffee-ground emesis/chronic diarrhea
Hemoglobin stable. Continue to follow.
GI following
On Protonix drip
Conservative management now in view of CT head finding
Patient takes potassium chronically at home.
Right hydronephrosis:
Urology following, believe that this is more a chronic finding.
No plans for any intervention at this point
Currently UA negative for infection
-
COPD: Not bronchospastic.
Continue inhalers
-
History of stroke sleep apnea: Did not follow through with further evaluation per Dr. Mclaughlin's office visit.
-
Follow-up outpatient pulmonary with Dr. Mclaughlin after discharge.
.-
If cleared by neurosurgery, transfer back to telemetry.

Imaging reviewed:
CT cervical spine 11/09/2023: No fracture or dislocation. Large left thyroid lobe mass/nodule.
CT abdomen pelvis: New severe right hydronephrosis and hydroureter with abrupt transition at the level of the mid ureter where there is an 8 mm nodular focus of enhancement possible neoplasm. Increased size of simple appearing cyst in the right
adnexa 5.6 cm. Chronic findings similar to CAT scan from 08/2021.
Head CT 11/09/2023: Persistent small focus of increased attenuation of the left parietal lobe-which would favor mild blood product rather than infarct. Measures about 6 mm and is stable in size compared to head CT from earlier.
--- NOTE | 2023-11-10 12:45 | PTOTSP ---
Speech Therapy Swallowing Assessment
No gross signs of aspiration with thin liquid trials. Patient agitated and refused meds pass. Given functional oral motor skills and tolerance with thin liquid patient should tolerate pills - unless cognitive status interferes.
Recommend
1. Thin liquids as part of clear liquids per GI.
2. Upright with intake.
3. Pills as tolerated.
--- NOTE | 2023-11-10 12:52 | CON.NS ---
Consultation
-
Date/Time Consultation Performed: 13:00, 11/10/2023
Performing Provider: Cora
Chief Complaint
History of Present Illness
This is a neurosurgical consultation on a 73-year-old female who presented to [facility]. She has past medical history significant for diabetes, morbid obesity, CHF, and diverticular disease. She had been found down at home covered in her
own vomit. It was reported that the family was unable to reach her. Patient was last heard from on Monday evening, at which time it was reported that she sounded more confused than normal. Patient was noted to be significantly confused.
Additional history was obtained to the patient's son, who is at bedside. The patient's son reports that the patient been started on metformin in July, which caused significant changes in her cognitive status, and chronic diarrhea. Ultimately,
the metformin was discontinued, but the patient's diarrhea persisted. Given that the patient was found down, the patient had a noncontrast head CT, which demonstrated a small area of hypodensity within the left parietal lobe, suspicious for
possible subarachnoid hemorrhage. Repeat CT head was performed, which was stable. Patient was admitted to the ICU for serial neurological examinations.
Patient seen and examined at bedside. Son is at bedside. Patient denies any headache. She reports overall sense of not feeling well, and currently reported some bilateral chest abdominal pain.
Review of Systems
-
A 10 point review of systems was performed, which includes constitutional, ENT, cardiovascular, respiratory, GI, , endocrinologic, hematologic, neurologic, psychiatric, musculoskeletal, which was negative, except for stated in HPI.
Medication and Allergies
Home Medications
Home Medications
Medication Instructions Recorded
allopurinol 300 mg tablet 300 mg PO DAILY Gout 09/20/21
aspirin 81 mg chewable tablet 81 mg PO QPM Blood clot 09/20/21
prevention/tx
carvedilol 12.5 mg tablet 12.5 mg PO BID Heart 09/20/21
disease/condition
potassium chloride 10 mEq 10 meq PO DAILY Electrolyte 09/20/21
tablet,extended release(part/cryst) Repletion
potassium chloride 20 mEq 60 meq PO DAILY Electrolyte 09/20/21
tablet,extended Repletion
release(part/cryst) (Klor-Con M)
pravastatin 40 mg tablet 40 mg PO HS High cholesterol 09/20/21
tiotropium bromide 2.5 2 puff inhalation R DAILY 09/20/21
mcg/actuation mist for inhalation Lung/breathing issues
(Spiriva Respimat)
albuterol sulfate 90 mcg/actuation 2 puff inhalation R Q4 PRN 11/09/23
aerosol inhaler sob/wheezing
loperamide 2 mg capsule 2 mg PO Q4H PRN diarrhea 11/09/23
losartan 100 mg tablet 100 mg PO DAILY Blood Pressure 11/09/23
Allergies
Allergies
Allergy/AdvReac Type Severity Reaction Status Date / Time
Penicillins Allergy Hives Verified 11/09/23 21:16
Physical Exam
-
Exam:
Awake, alert, and follows simple commands
Speech is fluent, comprehension intact, repetition is normal.
Pupils are equal round reactive to light. Extract movements are full without any nystagmus
Face is symmetric, tongue is midline
Motor: 5/5 strength bilaterally in upper extremities lower extremities without any pronator drift
Sensation to light touch intact in all dermatomes of
Gait not tested
Reflexes 2+ bilaterally in upper and lower extremities
Head is normocephalic, there is matted debris over the left parietal scalp, however, no obvious evidence of definitive blood is seen. There is no tenderness to palpation over the left parietal scalp
Neck is supple
Breathing nonlabored
Elevated heart rate.
Abdomen is soft
Bilateral lower extremity edema is noted
Problems
-
Problem Status Onset Code
UGIB (upper gastrointestinal bleed) K92.2
Assessment / Plan
-
This is a 73-year-old female who presents after being found down for likely greater than 24 hours covered on vomitus. Noncontrast CT scan demonstrated a left parietal area of hyperdensity, superficial, suspicious for possible subarachnoid
hemorrhage. Repeat imaging was stable. Patient has a nonfocal neurological examination.
Given stable repeat CT head, no further CT scans of the head needed, unless patient's neurological examination acutely changes.
Given that patient's son reports of progressive cognitive decline over the last several months, and to better delineate this left parietal hyperdense lesion, would recommend MRI of the brain, and MRV to rule out underlying lesion, and to rule out
cortical vein thrombosis/venous sinus thrombosis.
MRI/MRV can be done during this hospitalization, but MRI/MRV does not need to be done prior to the patient being transferred out of ICU.
Okay advance diet as tolerated.
Okay for DVT prophylaxis.
Would hold aspirin 81 mg x 1 week, and if repeat CT scan at that time is stable, okay to resume aspirin 81 mg.
Okay to transfer out of ICU.
Maintain systolic blood pressures less than 160.
--- NOTE | 2023-11-10 13:00 | PTCARENOTE ---
Diet advanced to clears per GI. Speech therapy to bedside this AM for eval, pt. cleared to advance to clear liq diet safely. Pt. refused to take PO meds, remains confused. Uncooperative/argumentative. Only interested in H20. Adequate nutrition
education provided, pt. disinterested/unable to learn @ this time. IVF and PPI infusing via #22 L hand. VAT notified of difficult vasculature/access. Son remains @ bedside. Pt. repositioned per protocol. Safe environment maintained.
--- NOTE | 2023-11-10 13:55 | CM ---
CM following re: discharge planning.
Discussed in Rounds, reviewed pt's chart, met with pt and pt's son Grae and bedside.
Pt is a 73 year old female, admitted with primary dx of UGIB, Hypoglycemia.
Pt is not a great historian, information obtained from pt's son. per son, pt lives alone in an apartment, no steps to enter and he is the only son. Per son, pt uses a walker when goes outside, drives, and was able to care for herself. No VN or SNF
history. Per son, pt's confusion is new and he stated he does not remember pt 'being like this in the past'.
PCP: Vianey Chowdhury
Pharmacy: [facility]
D/C plan: uncertain at this time and will depend on pt's progress.
CM will follow with discharger plan updates as hospitalization progresses
[2023-11-10] MEDS: LIDOCAINE 4% PATCH 1 PATCH TOPICAL (14:21)
--- NOTE | 2023-11-10 14:49 | W.PN.UPDATE ---
Update Note
Progress Note Update
Case discussed with neurosurgery. No need for critical care monitoring at this point.
Discussed with Dr. Moore as well.
Continue with medical care.
Transfer to intermediate care unit.
Critical care team will sign off.
Please call with questions.
[2023-11-10 14:53] LABS: Urine Albumin 1+ (Neg - Trace); Urine Bilirubin Negative (Negative); Urine Character Clear (Clear); Urine Color Yellow; Urine Glucose Negative (Negative); Urine Ketone Trace (Negative); Urine Leukocyte Trace (Negative); Urine Nitrite Negative (Negative); Urine Occult Blood 2+ (Negative); Urine Specific Gravity 1.015 (<1.030); Urine Urobilinogen Negative (Neg - 1+)
[2023-11-10 15:23] LABS: Urine White Cell 0-2 /HPF (0-5)
[2023-11-10 15:24] LABS: Urine Mucus Moderate
[2023-11-10 15:55] LABS: Blood Urea Nitrogen 27 mg/dl (7-17); Calcium 8.6 mg/dl (8.4-10.2); Carbon Dioxide 26 mmol/L (22-30); Chloride 112 mmol/L (98-107); Estimated Creatinine Clearance 55 ml/min; Glucose 107 mg/dl (70-99); Magnesium 1.9 mg/dl (1.6-2.3); Potassium 4.6 mmol/L (3.5-5.1); Sodium 140 mmol/L (135-145); eGFR 52.73
--- NOTE | 2023-11-10 16:04 | PTCARENOTE ---
Addendum entered by Christelle Monte RN 11/10/23 16:22:
No BMs since admit. Infection manager loss prevention and Dr. Moore aware and further orders received to d/c stool samples. Pt. placed on standard precautions per infection prevention.
Original Note:
VAT placed L midline. Blood work sent to lab. IVF and PPI gtt infusing via L midline. #22 x2 L wrist/hard patent, dressing c/d/i. Poor appetite remains, intake encouraged. Reassessed, no changes in prev assessments. Pt. repositioned. Safe
environment maintained.
[2023-11-10 18:04] LABS: Glucose - Point of Care 97 mg/dl (70-99)
--- NOTE | 2023-11-10 19:21 | PTCARENOTE ---
Elevated SBP's into 180's. Goal SBP <160 per neurosurgery. Hipolito Aldridge, notified and further orders received- see OCT.
[2023-11-10] MEDS: TRANDATE 10 MG IV (20:13)
[2023-11-10] MEDS: PRAVACHOL PO (22:14)
[2023-11-10 22:17] LABS: Glucose - Point of Care 99 mg/dl (70-99)
[2023-11-11] VITALS (25 sets, daily range): BP systolic 121–184; BP diastolic 58–105; PULSE 88; O2SAT 97; BMI 46.7
[2023-11-11] MEDS: NSS with KCL 20 MEQ 1000 IV ×2 (00:29→07:22)
[2023-11-11] MEDS: PROTONIX 100 IV ×3 (02:24→22:05)
[2023-11-11 04:25] LABS: Glucose - Point of Care 91 mg/dl (70-99)
[2023-11-11 04:46] LABS: ALT (SGPT) 31 U/L (0-35); AST (SGOT) 47 U/L (14-36); Albumin 2.7 g/dl (3.5-5.0); Alkaline Phosphatase 73 U/L (38-126); Blood Urea Nitrogen 25 mg/dl (7-17); Calcium 8.9 mg/dl (8.4-10.2); Carbon Dioxide 27 mmol/L (22-30); Chloride 112 mmol/L (98-107); Estimated Creatinine Clearance 55 ml/min; Glucose 100 mg/dl (70-99); Hemoglobin 12.2 g/dL (12.0-16.0); Mean Corp Hgb Conc. 32.1 g/dL (33.0-37.0); Mean Corpuscular Hgb 31.2 pg (27.0-31.0); Mean Corpuscular Volume 97.2 fL (81.0-99.0); Mean Platelet Volume 10.2 fL (7.4-10.4); Platelet Count 196 10^3/uL (130-400); Potassium 3.8 mmol/L (3.5-5.1); Red Blood Cell Count 3.91 10^6/uL (4.20-5.40); Red Cell Dist. Width 14.6 % (11.5-14.5); Sodium 141 mmol/L (135-145); Total Bilirubin 0.9 mg/dl (0.2-1.3); Total Protein 5.4 g/dl (6.3-8.2); White Blood Cell Count 10.2 10^3/uL (4.8-10.8); eGFR 52.73
[2023-11-11] MEDS: SPIRIVA RESPIMAT 2.5 MCG 2 PUFF INH (07:42)
[2023-11-11] MEDS: COREG 12.5 MG PO ×2 (08:00→19:39)
[2023-11-11] MEDS: ZYLOPRIM 300 MG PO (08:00)
[2023-11-11] MEDS: LIDOCAINE 4% PATCH 1 PATCH TOPICAL (08:00)
[2023-11-11 08:03] LABS: Glucose - Point of Care 86 mg/dl (70-99)
--- NOTE | 2023-11-11 08:56 | W.PN.GI.CBS2 ---
Today's Communication / Plan
-
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
Hgb down from 15.3 to 12.2
No overt bleeding or vomiting
If no active findings on MRI, then would proceed with EGD next to r/o bleeding nidus
Urology evaluation ongoing for R hydro
Not sure how all these findings fit together, if at all
Assessment / Plan
-
The patient is a 73-year-old female who is a poor historian but EMR notes a past medical history significant for COPD, hypertension, gout, chronic kidney disease stage III, osteoporosis, chronic pain syndrome on tramadol, chronic diastolic heart
failure, hyperlipidemia, prediabetes previously on metformin, morbid obesity, who presented to the emergency room after being found down at home. We are being asked to evaluate for possible upper GI bleed. Per EMR the patient has had progressive
confusion with diarrhea. Historically not compliant. Had been found down at home covered in dark emesis with complaints of abdominal pain. CT findings showing severe right-sided hydronephrosis which is new with concern for ureteral neoplasm.
Urology is following. CT cervical spine also showing a large thyroid nodule/mass. Hemoglobin 18.6 on admission down to 15.5 after IV hydration. She has had no further vomiting with no bowel movements since admission. Started on PPI drip. She has
been persistently confused with CT of the brain showing concern for possible bleed.
Problem list:
-Coffee-ground emesis
-? History of peptic ulcer disease
-Altered mental status
-CT imaging showing severe right-sided hydronephrosis, questionable ureteral neoplasm
-Large thyroid nodule/mass seen on CT
-Leukocytosis
-History of contained perforation secondary to diverticulitis 2021, did not require surgical intervention
-Chronic diarrhea
-CHARLY on CKD
-Hypokalemia
-Elevated CPK, rhabdomyolysis
Other pertinent medical history:
-Morbid obesity
-COPD
-Hypertension
-Gout
-Chronic pain syndrome on tramadol
-Chronic diastolic heart failure
-Hyperlipidemia
-Prediabetes
Subjective
Subjective
Date of Service: November 11, 2023
No vomiting. Seems more alert this am
Objective
Data Reviewed
Laboratory Data:
Laboratory Results
11/11/23 04:10
11/11/23 04:10
Laboratory Results
PT 12.8 Sec (11.4-14.6) 11/09/23 20:14
INR 0.96 11/09/23 20:14
APTT 31.3 Sec (23.4-35.0) 11/09/23 20:14
Phosphorus 4.3 mg/dl (2.5-4.5) 11/10/23 03:55
Magnesium 1.9 mg/dl (1.6-2.3) 11/10/23 15:26
Total Bilirubin 0.9 mg/dl (0.2-1.3) 11/11/23 04:10
AST 47 U/L (14-36) H 11/11/23 04:10
ALT 31 U/L (0-35) 11/11/23 04:10
Alkaline Phosphatase 73 U/L (38-126) 11/11/23 04:10
Lipase 55 U/L (23-300) 11/09/23 19:27
Vital Signs and I&O:
Vital Signs
Temp Pulse Resp BP Pulse Ox
98.2 F 98 21 143/75 96
11/11/23 08:00 11/11/23 07:49 11/11/23 07:49 11/11/23 06:00 11/11/23 07:49
I&O
11/10/23 11/11/23 11/12/23
06:59 06:59 06:59
Intake Total 1037.5 / 1115.0 3932.5 / 4092.5 320 / 320
Output Total 200 / 200
Balance 1037.5 / 1115.0 3732.5 / 3892.5 320 / 320
Physical Exam
Physical Exam
GI: Soft, Non Distended and Non Tender
--- NOTE | 2023-11-11 09:55 | PTCARENOTE ---
Large liquid BM. Sample sent to lab. Rectal trumpet applied. Bladder scan 275 due to unable to detect urine from stool.
--- NOTE | 2023-11-11 10:00 | PTCARENOTE ---
Assumed care of patient. Oriented to person, place. Able to answer some simple questions but not capable of conversation. Perseveration, loss of words and train of thought. Required distraction to get pt to take oral meds, then had to remind pt
multiple times to swallow pills. VSS, SR with frequent PVCs. HTN. 3L NC with SpO2 94%. Crackles in bases. Liquid BM present but unable to determine if urine present. Bladder scan 275. Rectal trumpet applied. Large external hemorrhoid present. IVF
stopped due to increasing weight. Protonix gtt continues. Pt demonstrated considerable back pain with turns and became verbally abusive to staff. Son at bedside.
--- NOTE | 2023-11-11 10:58 | W.PN.HOSP.TC ---
Addendum entered and electronically signed by Nicole Moore MD 11/11/23 11:24:
Acute hypoxic respiratory insufficiency likely secondary to atelectasis-incentive spirometry
Original Note:
Today's Communication/Plan
-
MRI/MRV ordered
D/C IVF
PT OT
X ray L Spine.
Assessment / Plan
Assessment / Plan
73-year-old female lives at home and gets help from sister. Sister recently was away on vacation was not able to get in touch with the patient which is unusual therefore checked on her upon returning home and found the patient was on the floor
covered in black vomitus. She is also confused. Patient is a poor historian. Son is at bedside he does not give me a good history either.
Son states that she has been confused since June or July when she was started on metformin which she states was not for diabetes but for elevated blood sugars. Then she was taken off of it because of diarrhea and also confusion. Her
confusion has not gotten better. He also states that she has been confused more lately. When asked if she has been taking and states patient states yes but again poor historian. Son states that she only takes Tylenol but he does not live with her.
11/11/23- Spoke to sister . Pt started getting confused as her rent was not being paid. and confusion with financial stuff. Sister asked her son to do her bills. She will come over and and help her. She was not going out of the house. She didn't feel
well Monday. Monday brother called and she sounded 'batty'. She stopped smoking 12 years ago . ' She was always a hippy . Doing drugs -marijuana, never taken care of herself'. Sister states that she has Tylenol by her bedside all the time. Sister
and patient's son also wanting her to be a DNR
Confused
Does not know where she is or time
Answers questions but not appropriately
Cardiovascular system S1-S2 appreciated
Chest clear to auscultation decreased breath sounds at bases
Abdomen soft has some tenderness in the Right side and right CVA
Lower extremity bilateral edema noted
Neuro exam is difficult but able to move all extremities and no facial droop noted
# Coffee-ground emesis
Hemoglobin stable
Continue PPI
Follow H&H- Stable
Unclear if she was taking any NSAIDs-Per sister she is on Tylenol
Does not seem to be on any anticoagulants. Takes aspirin 81 mg daily
GI evaluation
Allow clears if GI is okay with that plan since
EGD after MRI
# Patient has more diarrhea today. Stool studies were canceled yesterday
Discussed with nursing to send stool studies
# Leukocytosis-does not look like a UTI
Chest x-ray reviewed by me-no evidence of pneumonia
If develops fever start antibiotics
Blood culture 1 set positive possible contaminant repeat
# CHARLY on CKD stage III
Likely prerenal
Also compromised right kidney function
Follow creat
Hold losartan
# Chronic diarrhea
Started after metformin in June and gotten better per son
Check stool studies while here
Never had a colonoscopy
Remains off of metformin now
# Hydronephrosis on the right side which is new since 2021 with a small tissue mass possible
Unclear if right adnexal mass is pushing
# Abnormal CAT scan of the head cannot rule out small subarachnoid bleeding
Repeat CAT scan confirms blood products-stable size
Neurosurgery evaluation requested
Follow neuroexam
# Diabetes-check hemoglobin A1c
Accu-Cheks and sliding scale coverage for now
# Hypokalemia-replace IV
# Mild rhabdomyolysis-getting IV fluids. Stop
# Mild lactic acidosis-improved
#Large left thyroid lobe mass/nodule-needs an ultrasound and further workup as outpatient
Normal TSH
# Chronic heart failure with preserved ejection fraction
Follows with Dr. Jourdan Moon
Patient is on Coreg, losartan as outpatient
Hold losartan
son thinks she was on Lasix at 1 point not on The med list now
EKG sinus tachycardia with PACs
Echo 01/18/2022-technically difficult study. Normal biventricular size and function without regional wall motion abnormalities no change since 2018
# Hypertension-continue Coreg hold losartan
# Hyperlipidemia/atherosclerosis-continue statin
# GERD/PUD-PPI
# Asthma/COPD
Continue as needed albuterol, Spiriva or equivalent
# Gout-continue allopurinol
# History of perforated diverticulitis 2021
# Hypoalbuminemia
# Sleep apnea-noncompliant with CPAP
She has O2 , 'never uses , just let the machine run ' per sister.
# Calcified uterine fibroids, cystic lesion in the right adnexa 5.6 cm which previously measured 4 cm
This was found in 2021 and outpatient INSURANCE CLERK follow-up recommended at that time
# Morbid Obesity-affects all aspects of care
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
Osteopenia
# Hepatic steatosis
# Hypoalbuminemia
# Cognitive dysfunction-looks like she has been gradually declining
# Ex-smoker
# DVT prophylaxis-SCDs
# DNR per D/W Sister and Son.
Discussed with nursing
Discussed with patient's son
D/W Pt's sister
Called MRI
Time 57 min
Anticipated Discharge: > 48 hours
Subjective/Interval History
-
Date of Service: November 11, 2023
Objective Data
-
Labs:
Laboratory Results
11/11/23
04:10
WBC 10.2
Hgb 12.2 D
Hct 38.0
Plt Count 196
Sodium 141
Potassium 3.8
Chloride 112 H
Carbon Dioxide 27
BUN 25 H
Creatinine 1.1 H
Glucose 100 H
Calcium 8.9
Total Bilirubin 0.9
AST 47 H
ALT 31
Alkaline Phosphatase 73
Vital Signs:
Vital Signs
Temp Pulse Resp BP Pulse Ox
98.2 F 79 18 121/58 96
11/11/23 08:00 11/11/23 10:00 11/11/23 10:00 11/11/23 10:00 11/11/23 10:00
I&O
11/10/23 11/11/23 11/12/23
06:59 06:59 06:59
Intake Total 1037.5 / 1115.0 3932.5 / 4092.5 640 / 640
Output Total 200 / 200 200 / 200
Balance 1037.5 / 1115.0 3732.5 / 3892.5 440 / 440
--- NOTE | 2023-11-11 11:40 | PTOTSP ---
ST Dysphagia Follow up / Tx session
Mild-moderate oral dysphagia; requires cueing throughout task for efficiency, inattention to bolus at times. Cog-linguistic deficits; confused, frequent tangential and irrelevant verbalizations requires consistent redirection to task
Spoke w/ RN; pt tolerating clears without reported difficulty, cleared for solid trials. Pt received asleep slow to arouse to verbal/tactile stim but once awake able to maintain alertness. She is confused; frequent tangential and irrelevant
verbalizations requires consistent redirection to task. Her son and sister were present at the bedside reports pt's current level of confusion is not baseline. HOB raised as upright as tolerated for PO trials of puree, minced/moist solids and
soft/bite-size solids with thin liquids. Demo mildly prolonged yet effective mastication and bolus was orally cleared. Required cueing throughout task for efficiency, inattention to bolus at times. Thin liquids by straw sip swallow appears prompt.
No overt s/sx of aspiration observed.
REcommend
1. From oropharyngeal standpoint advance to Soft/bite-size solids (L6) and Thin liquids
2. Aspiration and CHAR/reflux precautions with 1:1 feeding assist
3. Small bites and slow rate
4. Meds with sips of water or placed in apple sauce, per RN discretion
5. RECRUITMENT CONSULTANT following
[2023-11-11 12:01] LABS: Glucose - Point of Care 97 mg/dl (70-99)
--- NOTE | 2023-11-11 12:08 | W.PN.URO.CBU ---
Today's Communication / Plan
-
Will follow
Assessment / Plan
-
New right hydroureteronephrosis and pelvic soft tissue mass of unclear etiology: ?intraureteral or adnexal
Normal renal function
No right renal colic
---
Patient might ultimately benefit from either right percutaneous nephrostomy tube or right retrograde pyelography/JJ stent but there is no urgent need for intervention and addressing her more pressing medical issues is a priority
Will follow
Diagnosis
-
Date of Service: November 11, 2023
-
Patient Diagnosis:
Right hydroureteronephrosis (new) with ureteral or periureteral soft tissue in upper pelvis
Encephalopathy
Diarrhea/vomiting
Bacteremia
Essentially normal renal function
Subjective
-
Minimally conversant/confused
Objective
-
Vital Signs
Temp Pulse Resp BP Pulse Ox
98.2 F 79 18 121/58 96
11/11/23 08:00 11/11/23 10:00 11/11/23 10:00 11/11/23 10:00 11/11/23 10:00
Intake and Output
11/10/23 11/11/23 11/12/23
06:59 06:59 06:59
Intake Total 1037.5 / 1115.0 3932.5 / 4092.5 640 / 640
Output Total 200 / 200 200 / 200
Balance 1037.5 / 1115.0 3732.5 / 3892.5 440 / 440
Intake:
Oral fluids 490 / 490
IV fluids (Total) 1037.5 / 1115.0 3442.5 / 3602.5 640 / 640
K rider 67.5 / 135.0 202.5 / 202.5
NSS with KCL 900 / 900 3000 / 3150 600 / 600
PPI 70 / 80 240 / 250 40 / 40
Output:
Urine, Voided 200 / 200 200 / 200
Other:
How many times incontinent 1
MODERATE amount urine
How many times incontinent 1
SATURATED amount urine
Laboratory Results
11/11/23 04:10
11/11/23 04:10
Review of Systems
-
Unable to obtain full review of systems at this time due to: Patient Non-verbal
Physical Exam
-
General - obese, no acute distress
Abdomen - soft, non-tender
[2023-11-11] MEDS: TYLENOL 650 MG PO (12:18)
[2023-11-11] MEDS: MORPHINE SULFATE 2 MG IV (13:03)
[2023-11-11 15:00] LABS: Urine Albumin Trace (Neg - Trace); Urine Bilirubin Negative (Negative); Urine Character Clear (Clear); Urine Color Yellow; Urine Glucose Negative (Negative); Urine Ketone Negative (Negative); Urine Leukocyte 1+ (Negative); Urine Nitrite Negative (Negative); Urine Occult Blood Trace (Negative); Urine Specific Gravity 1.015 (<1.030); Urine Urobilinogen Negative (Neg - 1+)
--- NOTE | 2023-11-11 15:15 | PTCARENOTE ---
Pt stating she had to void for 2hr without being able to void-RN unsure if it was due to retention or not understanding purwick. Straight cath performed without issue. Urine clear yellow but foul smelling. Sent for UA/reflex cx. MRI head and
lumbar x-ray series completed after premedicating pt with tylenol and morphine.
[2023-11-11 15:36] LABS: Urine Bacteria Many (Negative); Urine Red Blood Cell 0-2 /HPF (0-2); Urine Squamous Cell 0-2 /LPF (Few); Urine White Cell 26-30 /HPF (0-5)
[2023-11-11 16:55] LABS: Glucose - Point of Care 85 mg/dl (70-99)
[2023-11-11 21:21] LABS: Glucose - Point of Care 84 mg/dl (70-99)
[2023-11-11] MEDS: PRAVACHOL 40 MG PO (22:05)
[2023-11-12] VITALS (17 sets, daily range): BP systolic 134–184; BP diastolic 66–98; PULSE 91–98; O2SAT 88–95; BMI 46.6
[2023-11-12] MEDS: MORPHINE SULFATE 2 MG IV (03:44)
[2023-11-12 04:21] LABS: Hematocrit 34.9 % (37.0-47.0); Hemoglobin 11.6 g/dL (12.0-16.0); Mean Corp Hgb Conc. 33.2 g/dL (33.0-37.0); Mean Corpuscular Hgb 31.5 pg (27.0-31.0); Mean Corpuscular Volume 94.8 fL (81.0-99.0); Mean Platelet Volume 10.6 fL (7.4-10.4); Platelet Count 193 10^3/uL (130-400); Red Blood Cell Count 3.68 10^6/uL (4.20-5.40); Red Cell Dist. Width 14.5 % (11.5-14.5); White Blood Cell Count 6.8 10^3/uL (4.8-10.8)
[2023-11-12 04:54] LABS: ALT (SGPT) 31 U/L (0-35); AST (SGOT) 44 U/L (14-36); Albumin 2.7 g/dl (3.5-5.0); Alkaline Phosphatase 77 U/L (38-126); Blood Urea Nitrogen 21 mg/dl (7-17); Calcium 9.1 mg/dl (8.4-10.2); Carbon Dioxide 28 mmol/L (22-30); Chloride 107 mmol/L (98-107); Estimated Creatinine Clearance 56 ml/min; Glucose 88 mg/dl (70-99); Magnesium 2.1 mg/dl (1.6-2.3); Potassium 3.6 mmol/L (3.5-5.1); Sodium 141 mmol/L (135-145); Total Bilirubin 0.9 mg/dl (0.2-1.3); Total Protein 5.3 g/dl (6.3-8.2); eGFR 52.73
--- NOTE | 2023-11-12 05:52 | PTCARENOTE ---
Pt remains confused, Q4 neuro checks, NSR with PAC's VSS, No overt bleeding overnight, Protonix gtt continued, rectal trumpet in place with black liquid stools. Adequate urine output, K1bndam, PRN morphine given for back pain. Pt comfortable at this
time, plan of care ongoing.
[2023-11-12] MEDS: PROTONIX 100 IV ×2 (07:14→16:36)
[2023-11-12] MEDS: LIDOCAINE 4% PATCH 1 PATCH TOPICAL (07:14)
[2023-11-12] MEDS: ZYLOPRIM 300 MG PO (07:16)
[2023-11-12] MEDS: COREG 12.5 MG PO ×2 (07:16→20:05)
[2023-11-12 07:51] LABS: Glucose - Point of Care 78 mg/dl (70-99)
[2023-11-12] MEDS: SPIRIVA RESPIMAT 2.5 MCG 2 PUFF INH (08:02)
--- NOTE | 2023-11-12 09:00 | PTCARENOTE ---
Assumed care of patient. Oriented to person, place. Able to answer some simple questions but not capable of conversation. Perseveration, loss of words and train of thought. Required convincing to take daily meds, then had to remind pt multiple
times to swallow pills. VSS, SR with frequent PVCs. HTN. 3L NC with SpO2 94%. Crackles in bases. Liquid BM present in rectal trumpet. Protonix gtt continues. Pt demonstrated considerable back pain. Son at bedside.
--- NOTE | 2023-11-12 09:19 | PTCARENOTE ---
NIHSS ordered by hospitalist. At bedside, as testing/questioning began, son halted test and requested NIHSS be performed at later time because pt about to go to sleep. SCDs also removed as per son request due to pain.
--- NOTE | 2023-11-12 11:01 | W.PN.URO.CBU ---
Today's Communication / Plan
-
Will defer further urologic diagnostic testing until more urgent issues are addressed
Assessment / Plan
-
New right hydroureteronephrosis and pelvic soft tissue mass of unclear etiology: ?intraureteral or adnexal
Normal renal function
No right renal colic
Bacteremia; urine culture pending
---
Patient might ultimately benefit from either right percutaneous nephrostomy tube or right retrograde pyelography/JJ stent but there is no urgent need for intervention and addressing her more pressing medical issues is a priority
Will follow
Diagnosis
-
Date of Service: November 12, 2023
-
Patient Diagnosis:
Right hydroureteronephrosis (new) with ureteral or periureteral soft tissue in upper pelvis
Encephalopathy
Diarrhea/vomiting
Bacteremia: urine culture pending
Essentially normal renal function
Subjective
-
No right flank pain
Objective
-
Vital Signs
Temp Pulse Resp BP Pulse Ox
97.8 F 78 17 171/68 91
11/12/23 08:00 11/12/23 10:08 11/12/23 10:08 11/12/23 10:08 11/12/23 10:08
Intake and Output
11/11/23 11/12/23 11/13/23
06:59 06:59 06:59
Intake Total 3932.5 / 4092.5 2810 / 2820 40 / 40
Output Total 200 / 200 1950 / 1950
Balance 3732.5 / 3892.5 860 / 870 40 / 40
Intake:
Oral fluids 490 / 490 1979 / 1979
IV fluids (Total) 3442.5 / 3602.5 830 / 840 40 / 40
K rider 202.5 / 202.5
NSS with KCL 3000 / 3150 600 / 600
PPI 240 / 250 230 / 240 40 / 40
Output:
Urine, Voided 200 / 200 1050 / 1050
Straight cath output 900 / 900
Other:
How many times incontinent 1
MODERATE amount urine
How many times incontinent 1
SATURATED amount urine
Laboratory Results
11/12/23 03:27
11/12/23 03:27
Review of Systems
-
Constitutional: Fatigue
Abdomen/GI: No Symptoms
: No Symptoms
Physical Exam
-
General - no acute distress
Abdomen - soft, non-tender
--- NOTE | 2023-11-12 11:15 | CON.NEURO4 ---
Consultation - Neurology 4
-
CONSULTING PHYSICIAN: Zane
REFERRING PHYSICIAN: Teresa
DICTATED BY: Zane
DATE/TIME OF REQUEST: 11/11/23 in the PM
DATE/TIME OF CONSULTATION: 11/12/23 at 1015
Reason for Consultation: stroke
History of Present Illness:
73-year-old female who has been more confused since July per her son at the bedside who provided history on her behalf. Initially this was attributed to metformin and he says that this was discontinued. Her confusion did not improve off
metformin. She did not feel well on Monday. On Monday her brother called and she sounded 'batty.' Her son states that she was found on the floor covered in black vomitus on . He thinks that her last known normal was Monday; she was
likely down for >24 hours. She takes aspirin at baseline. She has a previous history of smoking and also has a history of several vascular risk factors. Per records she has 'never taken good care of herself.'
HCT showed a L parietal area of hyperdensity, suspicious for possible SAH. Repeat imaging stable including MRI/MRA COW/MRA which showed multiple (approximately 15) scattered tiny acute/subacute infarcts throughout the bilateral cerebral hemispheres.
Past Medical History
COPD
DM-II
Hypertension
DDD / Osteoporosis
CKD III
Morbid Obesity
Gout
Diverticular Disease
GERD / PUD
Past Surgical History:
Cataracts
Social History:
Tobacco: Quit smoking 12 years ago.� Approx 40 pack years total use
Alcohol: None
Drug: None
Living: Alone
Family History
Father: Lung Cancer � � Sister: Lung Cancer
Allergies:
Penicillins Allergy (Verified 11/09/23 21:16)
Hives
Home Medications
Medication Instructions Recorded
allopurinol 300 mg tablet 300 mg PO DAILY Gout 09/20/21
aspirin 81 mg chewable tablet 81 mg PO QPM Blood clot 09/20/21
prevention/tx
carvedilol 12.5 mg tablet 12.5 mg PO BID Heart 09/20/21
disease/condition
potassium chloride 10 mEq 10 meq PO DAILY Electrolyte 09/20/21
tablet,extended release(part/cryst) Repletion
potassium chloride 20 mEq 60 meq PO DAILY Electrolyte 09/20/21
tablet,extended Repletion
release(part/cryst) (Klor-Con M)
pravastatin 40 mg tablet 40 mg PO HS High cholesterol 09/20/21
tiotropium bromide 2.5 2 puff inhalation R DAILY 09/20/21
mcg/actuation mist for inhalation Lung/breathing issues
(Spiriva Respimat)
albuterol sulfate 90 mcg/actuation 2 puff inhalation R Q4 PRN 11/09/23
aerosol inhaler sob/wheezing
loperamide 2 mg capsule 2 mg PO Q4H PRN diarrhea 11/09/23
losartan 100 mg tablet 100 mg PO DAILY Blood Pressure 11/09/23
Review of Symptoms:
Patient denies any fever, headache, chest pain, shortness of breath.
�Per the HPI.�All systems are reviewed negative except above.
Vital Signs
Temp Pulse Resp BP Pulse Ox
97.8 F 78 17 171/68 91
11/12/23 08:00 11/12/23 10:08 11/12/23 10:08 11/12/23 10:08 11/12/23 10:08
Lab Results
11/12/23 03:27
11/12/23 03:27
PT 12.8 Sec (11.4-14.6) 11/09/23 20:14
INR 0.96 11/09/23 20:14
APTT 31.3 Sec (23.4-35.0) 11/09/23 20:14
Sodium 141 mmol/L (135-145) 11/12/23 03:27
Potassium 3.6 mmol/L (3.5-5.1) 11/12/23 03:27
BUN 21 mg/dl (7-17) H 11/12/23 03:27
Glucose 88 mg/dl (70-99) 11/12/23 03:27
Calcium 9.1 mg/dl (8.4-10.2) 11/12/23 03:27
Phosphorus 4.3 mg/dl (2.5-4.5) 11/10/23 03:55
Vitamin B12 791 pg/ml (239-931) 11/10/23 01:30
Ur Buprenorphine Negative (Negative) 11/09/23 21:28
Physical Exam:
The patient is afebrile, heart sounds S1 and S2 are regular, and chest is clear to auscultation bilaterally.
NIH Stroke Scale:
I performed the NIH stroke scale on the patient on 11/12/23 at 1015. The patient scored 7 points on the NIH stroke scale assessment, which were assigned as follows: see below
Neurologic Examination:
The patient is confused, and a poor/vague historian; son at bedside provided history which was at times vague as well. She followed basic commands; she thought the month was May, she could not state the year or her age, she difficulty attending
to tasks.. She was able to read phrases and sentences. No clear dysarthria but had difficulty naming objects. On cranial nerve assessment, pupils are 3 mm bilateral, round and reactive to light and accommodation. Visual michelle are full.
Extraocular movements are intact. Facial sensations are intact and bilaterally symmetrical, there is no facial asymmetry. Hearing is intact bilaterally to normal conversation volume. Tongue palate and uvula are midline. Sternocleidomastoid
strengths are full bilaterally. Motor strengths are at least 4/5 bilateral upper and lower extremities on medical research [place] scale, likely affected at least somewhat but diminished ability to attend to the exam. Deep tendon reflexes are 1+
bilateral upper and lower extremities and Babinski is absent bilaterally. Sensations of touch, temperature are intact and bilaterally symmetrical. There was no extinction noted on double simultaneous stimulation. Coordination is intact by finger to
nose bilaterally.
Neuro Imaging:
HCT, 11/08
Persistent small focus of increased attenuation in the left parietal lobe, which would favor mild blood products rather than artifact. This measures 6 mm and is stable in size compared to the head CT from earlier in the same day.
MR Brain Without Contrast, MRA/MRV [place] [facility] [place] W/o  W, 11/10
'Several (approximately 15) scattered tiny acute/subacute infarcts throughout the bilateral cerebral hemispheres as described, one of which in the left parietal lobe has a small amount of associated hemosiderin deposition/blood products,
corresponding with CT findings. Findings may be of embolic etiology.
No definite dural venous sinus thrombosis/stenosis identified. No overt focal hemodynamically significant stenosis, aneurysm or occlusion.'
Impression:
JANET BOSE is a 73 year old F who has presented to the hospital after being found down covered in black vomitus, likely for more than 24 hours; she has been more confused since July. HCT showed possible bleed. MRI brain showed several tiny
bihemispheric acute/subacute infarcts, possibly embolic in etiology.
Patient has the following risk factors for their symptoms:
age
DM-II
Hypertension
Morbid Obesity
IV Tenecteplase/IAT candidacy: out of window for both/has bleed on imaging
Recommendations:
-reviewed MRI brain, MRV, MRA COW; see above
-MRA neck
-BP goal is normotension.
-defer to neurosurgery regarding antiplatelet: 'Would hold aspirin 81 mg x 1 week, and if repeat CT scan at that time is stable, okay to resume aspirin 81 mg.'
- HgbA1C is normal at 5.5. Goal is normoglycemia.
- Switch pravastatin to atorvastatin 80mg qhs; Check LDL. Goal LDL after stroke is <70.
- Check an echocardiogram.
-PT/OT/ST evaluations
- DVT prophylaxis
-continue neurochecks
Discussed patient care with: Dr. Moore, patient and her son
CRITICAL CARE TIME 60 MINS
NIH Stroke Scale
NIH Stroke Score
Date of Subsequent NIH Scale: 11/12/23
Time of Subsequent NIH Scale: 10:15
Level of Consciousness: 0 - Alert
LOC Questions: 2-Neither correct
LOC Commands: 0-Performs both correctly
Best Horizontal Gaze: 0-Normal
Visual Michelle: 0=Normal, no visual loss
Facial Palsy: 0=Normal, symmetrical
Motor - Right Arm: 1=Drift < 10 seconds
Motor - Left Arm: 1=Drift < 10 seconds
Motor - Right Le-Drift < 5 seconds
Motor - Left Le-Drift < 5 seconds
Limb Ataxia: 0-Absent
Sensation: 0-Normal
Best Language: 1-Mild aphasia
Dysarthria: 0-Normal
Extinction and Inattention: 0-No abnormality
Total Score:: 7
--- NOTE | 2023-11-12 11:25 | W.PN.GI.CBS2 ---
Today's Communication / Plan
-
Given the findings of acute/subacute infarcts b/l cerebral hemispheres, and no further vomiting or evidence of GI bleeding, will hold off on EGD
Neurology involved at this point
Will sign off for now. Please call back if needed, evidence of recurrent bleeding
Assessment / Plan
-
The patient is a 73-year-old female who is a poor historian but EMR notes a past medical history significant for COPD, hypertension, gout, chronic kidney disease stage III, osteoporosis, chronic pain syndrome on tramadol, chronic diastolic heart
failure, hyperlipidemia, prediabetes previously on metformin, morbid obesity, who presented to the emergency room after being found down at home. We are being asked to evaluate for possible upper GI bleed. Per EMR the patient has had progressive
confusion with diarrhea. Historically not compliant. Had been found down at home covered in dark emesis with complaints of abdominal pain. CT findings showing severe right-sided hydronephrosis which is new with concern for ureteral neoplasm.
Urology is following. CT cervical spine also showing a large thyroid nodule/mass. Hemoglobin 18.6 on admission down to 15.5 after IV hydration. She has had no further vomiting with no bowel movements since admission. Started on PPI drip. She has
been persistently confused with CT of the brain showing concern for possible bleed.
MRI- Several (approximately 15) scattered tiny acute/subacute infarcts throughout the bilateral cerebral hemispheres�
Problem list:
- Multiple tiny acute/subacute infarcts b/l cerebral hemispheres
-Coffee-ground emesis- resolved
-? History of peptic ulcer disease
-Altered mental status
-CT imaging showing severe right-sided hydronephrosis, questionable ureteral neoplasm
-Large thyroid nodule/mass seen on CT
-Leukocytosis
-History of contained perforation secondary to diverticulitis 2021, did not require surgical intervention
-Chronic diarrhea
-CHARLY on CKD
-Hypokalemia
-Elevated CPK, rhabdomyolysis
Other pertinent medical history:
-Morbid obesity
-COPD
-Hypertension
-Gout
-Chronic pain syndrome on tramadol
-Chronic diastolic heart failure
-Hyperlipidemia
-Prediabetes
Subjective
Subjective
Date of Service: November 12, 2023
Pt alert and conversive this am. No emesis
Objective
Data Reviewed
Laboratory Data:
Laboratory Results
11/12/23 03:27
11/12/23 03:27
Laboratory Results
PT 12.8 Sec (11.4-14.6) 11/09/23 20:14
INR 0.96 11/09/23 20:14
APTT 31.3 Sec (23.4-35.0) 11/09/23 20:14
Phosphorus 4.3 mg/dl (2.5-4.5) 11/10/23 03:55
Magnesium 2.1 mg/dl (1.6-2.3) 11/12/23 03:27
Total Bilirubin 0.9 mg/dl (0.2-1.3) 11/12/23 03:27
AST 44 U/L (14-36) H 11/12/23 03:27
ALT 31 U/L (0-35) 11/12/23 03:27
Alkaline Phosphatase 77 U/L (38-126) 11/12/23 03:27
Lipase 55 U/L (23-300) 11/09/23 19:27
Vital Signs and I&O:
Vital Signs
Temp Pulse Resp BP Pulse Ox
97.8 F 78 17 171/68 91
11/12/23 08:00 11/12/23 10:08 11/12/23 10:08 11/12/23 10:08 11/12/23 10:08
I&O
11/11/23 11/12/23 11/13/23
06:59 06:59 06:59
Intake Total 3932.5 / 4092.5 2810 / 2820 40 / 40
Output Total 200 / 200 1950 / 1950
Balance 3732.5 / 3892.5 860 / 870
Physical Exam
Physical Exam
GI: Soft, Non Distended and Non Tender
--- NOTE | 2023-11-12 11:30 | W.PN.HOSP.TC ---
Addendum entered and electronically signed by Nicole Moore MD 11/12/23 11:43:
D/W Neuro
Okay to control BP
CVA happened when she was foind down
Start ASA ( Also D/W GI -Ok)
Original Note:
Today's Communication/Plan
-
Transfer to telemetry
PT OT
Started diet
Watch hemoglobin
Stool studies
Echo
MRA
Discharge planning-rehab referrals
Assessment / Plan
Assessment / Plan
73-year-old female lives at home and gets help from sister. Sister recently was away on vacation was not able to get in touch with the patient which is unusual therefore checked on her upon returning home and found the patient was on the floor
covered in black vomitus. She is also confused. Patient is a poor historian. Son is at bedside he does not give me a good history either.
Son states that she has been confused since June or July when she was started on metformin which she states was not for diabetes but for elevated blood sugars. Then she was taken off of it because of diarrhea and also confusion. Her
confusion has not gotten better. He also states that she has been confused more lately. When asked if she has been taking and states patient states yes but again poor historian. Son states that she only takes Tylenol but he does not live with her.
11/11/23- Spoke to sister . Pt started getting confused as her rent was not being paid. and confusion with financial stuff. Sister asked her son to do her bills. She will come over and and help her. She was not going out of the house. She didn't feel
well Monday. Monday brother called and she sounded 'batty'. She stopped smoking 12 years ago . ' She was always a hippy . Doing drugs -marijuana, never taken care of herself'. Sister states that she has Tylenol by her bedside all the time. Sister
and patient's son also wanting her to be a DNR
MRI-several Scattered tiny acute/subacute infarcts bilateral cerebral hemispheres 1 of which is in the left parietal lobe with a small amount of hemosiderin deposition. Embolic. No definite dural venous sinus thrombosis or stenosis.
Confused
Patient is a little more organized today still confused
Cardiovascular system S1-S2 appreciated
Chest clear to auscultation decreased breath sounds at bases
Abdomen soft has some tenderness in the Right side and right CVA
Lower extremity bilateral edema noted
Neuro exam is difficult but able to move all extremities and no facial droop noted
# Coffee-ground emesis
Hemoglobin stable
Continue PPI
Follow H&H- Stable
Unclear if she was taking any NSAIDs-Per sister she is on Tylenol
Does not seem to be on any anticoagulants. Takes aspirin 81 mg daily as outpatient
GI evaluation noted
No EGD
Advance diet to dysphagia diet
# Embolic stroke
TME and confusion and memory issues secondary to strokes
Likely has vascular dementia also has Acute/subacute strokes.
No history of arrhythmias
Monitor on telemetry
Echo
MRI
PT OT and speech evaluation
Neurology evaluation
NIH scale and neurochecks
# Patient has more diarrhea today.
Check stool studies
Discussed with nursing to send stool studies
# Leukocytosis-does not look like a UTI
Chest x-ray reviewed by me-no evidence of pneumonia
If develops fever start antibiotics
Blood culture 1 set positive possible contaminant repeat
# CHARLY on CKD stage III
Likely prerenal
Also compromised right kidney function
Follow creat
Hold losartan
# Chronic diarrhea
Started after metformin in June and gotten better per son
Check stool studies while here
Never had a colonoscopy
Remains off of metformin now
# Hydronephrosis on the right side which is new since 2021 with a small tissue mass possible
Unclear if right adnexal mass is pushing
# Abnormal CAT scan of the head cannot rule out small subarachnoid bleeding
Repeat CAT scan confirms blood products-stable size
Neurosurgery evaluation requested
No subarachnoid bleeding noted on MRI
# Diabetes-hemoglobin A1c 5.5
Accu-Cheks and sliding scale coverage for now
# Hypokalemia-replaced
# Mild rhabdomyolysis-resolving
# Mild lactic acidosis-improved
#Large left thyroid lobe mass/nodule-needs an ultrasound and further workup as outpatient
Normal TSH
# Chronic heart failure with preserved ejection fraction
Follows with Dr. Jourdan Moon
Patient is on Coreg, losartan as outpatient
Hold losartan
son thinks she was on Lasix at 1 point not on The med list now
EKG sinus tachycardia with PACs
Echo 01/18/2022-technically difficult study. Normal biventricular size and function without regional wall motion abnormalities no change since 2018
# Hypertension-continue Coreg hold losartan
Start nifedipine
# Hyperlipidemia/atherosclerosis-continue statin
# GERD/PUD-PPI
# Asthma/COPD
Continue as needed albuterol, Spiriva or equivalent
# Gout-continue allopurinol
# History of perforated diverticulitis 2021
# Hypoalbuminemia
# Sleep apnea-noncompliant with CPAP
She is chronic hypoxic at bedside respiratory failure-prescribed home oxygen
She has O2 , 'never uses , just let the machine run ' per sister.
# Calcified uterine fibroids, cystic lesion in the right adnexa 5.6 cm which previously measured 4 cm
This was found in 2021 and outpatient [employer] follow-up recommended at that time
# Morbid Obesity-affects all aspects of care
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
Osteopenia
X-ray with arthritis changes
# Hepatic steatosis
# Hypoalbuminemia
# Cognitive dysfunction-looks like she has been gradually declining
# Ex-smoker
# DVT prophylaxis-SCDs
# DNR per D/W Sister and Son.
Discussed with nursing
Discussed with patient's son
Discussed with GI
Discussed with the patient and son about keeping SCDs on to prevent blood clots. Both agreeable
Time 52 min
Anticipated Discharge: 24 - 48 hours
Subjective/Interval History
-
Date of Service: November 12, 2023
Objective Data
-
Labs:
Laboratory Results
11/12/23
03:27
WBC 6.8
Hgb 11.6 L
Hct 34.9 L
Plt Count 193
Sodium 141
Potassium 3.6
Chloride 107
Carbon Dioxide 28
BUN 21 H
Creatinine 1.1 H
Glucose 88
Calcium 9.1
Total Bilirubin 0.9
AST 44 H
ALT 31
Alkaline Phosphatase 77
Vital Signs:
Vital Signs
Temp Pulse Resp BP Pulse Ox
97.8 F 78 17 171/68 91
11/12/23 08:00 11/12/23 10:08 11/12/23 10:08 11/12/23 10:08 11/12/23 10:08
I&O
11/11/23 11/12/23 11/13/23
06:59 06:59 06:59
Intake Total 3932.5 / 4092.5 2810 / 2820 40 / 40
Output Total 200 / 200 1950 / 1950
Balance 3732.5 / 3892.5 860 / 870 40 / 40
--- NOTE | 2023-11-12 12:09 | PTCARENOTE ---
NIHSS 5. Difficult exam due to pt inability to understand instructions vs inability to follow instructions.
[2023-11-12] MEDS: PROCARDIA XL (EXTENDED RELEASE) 30 MG PO (12:22)
[2023-11-12 12:37] LABS: HDL Cholesterol 39 mg/dl; LDL Cholesterol, Calculated 89 mg/dl; Total Cholesterol 147 mg/dl (50-199); Triglyceride 97 mg/dl (10-149); Very Low Density Lipoprotein 19 mg/dl (0-30)
--- NOTE | 2023-11-12 13:15 | W.PN.UPDATE ---
Update Note
Progress Note Update
MRI brain and MRA reviewed. Demonstrates multiple small foci of restricted diffusion, consistent with infarctions, possibly embolic. Likely left parietal hyperdensity is hemorrhagic conversion of such foci?
Ok to resume ASA if needed.
Would advise, if possible to hold on therapeutic anticoagulation for 1 week from time of presentation. 11/16/2023.
[2023-11-12] MEDS: LIPITOR 80 MG PO (17:15)
[2023-11-12] MEDS: TYLENOL 650 MG PO (20:05)
[2023-11-13] VITALS (8 sets, daily range): BP systolic 142–188; BP diastolic 63–93; BMI 43.9
--- NOTE | 2023-11-13 01:32 | PTCARENOTE ---
Pt Aox2, NIH5, VSS NSR on monitor with 1st degree and PACs. C/o pain in back prn Tylenol given with relief. Protonix gtt continued. Pt transferred to room 431, report given to Timbo MARSHALL.
--- NOTE | 2023-11-13 01:35 | TRANSFER ---
Pt transferred to room 431-01 from ICU. Pt remains confused and is AAOx2 to self and place. No pain at this time, VS stable on transfer. Bed alarm in place for confusion. Bed in lowest position with call casiano in reach. Will continue to monitor.
[2023-11-13] MEDS: PROTONIX 100 IV ×2 (01:39→13:05)
[2023-11-13] MEDS: SPIRIVA RESPIMAT 2.5 MCG INH (07:56)
--- NOTE | 2023-11-13 08:44 | W.PN.URO.CBU ---
Today's Communication / Plan
-
Urine culture with GNR
Assessment / Plan
-
New right hydroureteronephrosis and pelvic soft tissue mass of unclear etiology: ?intraureteral or adnexal
Normal renal function
No right renal colic
Bacteremia; urine culture with GNR
---
Patient might ultimately benefit from either right percutaneous nephrostomy tube or right retrograde pyelography/JJ stent but there is no urgent need for intervention and addressing her more pressing medical issues is a priority
Will follow
Diagnosis
-
Date of Service: November 13, 2023
-
Patient Diagnosis:
Right hydroureteronephrosis (new) with ureteral or periureteral soft tissue in upper pelvis
Encephalopathy/embolic shower to brain
Diarrhea/vomiting
Bacteremia: urine culture with GNR
Essentially normal renal function
Subjective
-
No right flank pain
No dysuria
Urine recurrence
Objective
-
Vital Signs
Temp Pulse Resp BP Pulse Ox
97.5 F 86 20 155/83 94
11/13/23 03:26 11/13/23 03:26 11/13/23 03:26 11/13/23 03:26 11/13/23 03:26
Intake and Output
11/12/23 11/13/23 11/14/23
06:59 06:59 06:59
Intake Total 2810 / 2820 1420 / 1420
Output Total 1949 / 1949 2975 / 2975
Balance 860 / 870 -1555 / -1555
Intake:
Oral fluids 1979 / 1979 1240 / 1240
IV fluids (Total) 830 / 840 180 / 180
NSS with KCL 600 / 600
PPI 230 / 240 180 / 180
Output:
Liquid stool amount 25 / 25
Rectum 25 /
Urine, Voided 1050 / 1050 2950 / 2950
Straight cath output 900 / 900
Other:
How many times incontinent 1
MODERATE amount urine
How many times incontinent 1
SATURATED amount urine
Review of Systems
-
Constitutional: Fatigue
Abdomen/GI: No Symptoms
: Incontinence
Physical Exam
-
General - well nourished, no acute distress
Abdomen - soft, non-tender
[2023-11-13 08:46] LABS: Ammonia < 9 umol/L (9-30)
[2023-11-13 08:49] LABS: Hematocrit 38.5 % (37.0-47.0); Mean Corp Hgb Conc. 33.8 g/dL (33.0-37.0); Mean Corpuscular Hgb 31.3 pg (27.0-31.0); Mean Corpuscular Volume 92.8 fL (81.0-99.0); Mean Platelet Volume 10.3 fL (7.4-10.4); Platelet Count 206 10^3/uL (130-400); Red Blood Cell Count 4.15 10^6/uL (4.20-5.40); Red Cell Dist. Width 13.7 % (11.5-14.5)
[2023-11-13] MEDS: LIDOCAINE 4% PATCH 1 PATCH TOPICAL (09:09)
[2023-11-13] MEDS: PROCARDIA XL (EXTENDED RELEASE) 30 MG PO (09:09)
[2023-11-13] MEDS: ZYLOPRIM 300 MG PO (09:10)
[2023-11-13] MEDS: COREG 12.5 MG PO ×2 (09:10→20:46)
[2023-11-13] MEDS: MORPHINE SULFATE 2 MG IV (09:23)
--- NOTE | 2023-11-13 09:34 | W.PN.NEURO.1 ---
Documented by User: Violeta Andre NP 11/13/23 10:56
Today's Communication / Plan
-
.
Neuro Assessment/Plan
Assessment
JANET BOSE is a 73 year old F who has presented to the hospital on 11/09/23 after being found down covered in black vomitus, likely for more than 24 hours; she has been more confused since July. HCT showed possible bleed.� MRI brain showed
several tiny bihemispheric acute/subacute infarcts, possibly embolic in etiology. IV Tenecteplase/IAT candidacy: Not a candidate due to out of time window for both/has bleed on imaging.
-CT head 11/09/23: Small linear focus of hyperattenuation in a left parietal lobe sulcus, which may be related to motion artifact. Minimal subarachnoid blood products are not excluded and a short-term follow-up head CT can be considered for
reevaluation.
-CT Cervical spine 11/09/23: No acute fracture or dislocation. Large left thyroid lobe mass/nodule. Recommend further evaluation with a thyroid ultrasound on an outpatient basis.
-MRI Brain 11/11/23: Several (approximately 15) scattered tiny acute/subacute infarcts throughout the bilateral cerebral hemispheres as described, one of which in the left parietal lobe has a small amount of associated hemosiderin deposition/blood
products, corresponding with CT findings. Findings may be of embolic etiology.
-MRA COW 11/11/23: No definite dural venous sinus thrombosis/stenosis identified. No overt focal hemodynamically significant stenosis, aneurysm or occlusion.
-CT Abd/pelvis 11/09/23: New severe right hydronephrosis and hydroureter with an abrupt transition at the level of the mid ureter where there is an 8 mm nodular focus of enhancement, raising concern for a ureteral neoplasm.
Increased size of a simple appearing cystic lesion in the right adnexa, now measuring up to 5.6 cm.
-Xray Lumbar spine 11/11/23: Moderate multilevel degenerative changes of the lumbar spine without evidence for acute fracture.
I. Several (about 15) scatted tiny acute/subacute ischemic infarcts throughout bilateral cerebral hemispheres; one of which in the left parietal lobe has a small hemorrhagic component. Etiology likely embolic.
II. Urine culture positive for gram negative rods.
III. Right hydronephrosis and pelvic mass.
IV. Left thyroid nodule.
Plan
-MRA neck pending.
-TTE pending, will likely need NAYLA.
-Would recommend initiating aspirin 81mg daily, okay per Neurosurgery to resume as of 11/12/23.
-BP goal is normotension.
-PRN Tylenol and Compazine for headache.
-Infection workup/treatment per primary team.
-Continue telemetry monitoring.
-Goal is normoglycemia, HgbA1C is normal at 5.5.
-LDL goal <70. LDL is 89. Home pravastatin 40mg changed to atorvastatin 80mg daily.
-NIHSS and neurological checks per unit guidelines.
-Provide patient/family with a stroke education packet.
-PT/OT/ST evaluations.
-DVT prophylaxis.
Subjective/Objective
Subjective Data
Date of Service: November 13, 2023
No acute events overnight. Patient complains of upper, middle, and lower back discomfort acute on chronic. She also reports a generalized headache which she cannot rate, some difficulty getting her thoughts together, urinary and bowel frequency, and
she is seeing some floaters. She denies any dizziness, double vision. swallowing difficulty, nausea, numbness, focal weakness, chest pain, palpitations, and shortness of breath.
Objective Data
Vital Signs
Temp Pulse Resp BP Pulse Ox
97.8 F 87 20 188/93 99
11/13/23 07:22 11/13/23 07:22 11/13/23 07:22 11/13/23 07:22 11/13/23 07:22
Lab Results
11/13/23 08:14
PT 12.8 Sec (11.4-14.6) 11/09/23 20:14
INR 0.96 11/09/23 20:14
APTT 31.3 Sec (23.4-35.0) 11/09/23 20:14
Sodium 141 mmol/L (135-145) 11/12/23 03:27
Potassium 3.6 mmol/L (3.5-5.1) 11/12/23 03:27
BUN 21 mg/dl (7-17) H 11/12/23 03:27
Glucose 88 mg/dl (70-99) 11/12/23 03:27
Calcium 9.1 mg/dl (8.4-10.2) 11/12/23 03:27
Phosphorus 4.3 mg/dl (2.5-4.5) 11/10/23 03:55
LDL Cholesterol, Calc 89 mg/dl 11/12/23 03:27
Vitamin B12 791 pg/ml (239-931) 11/10/23 01:30
Ur Buprenorphine Negative (Negative) 11/09/23 21:28
Patient Allergies
Penicillins Allergy (Verified 11/09/23 21:16)
Hives
LDL Level: >70, statin ordered
Review of Systems
-
History Source: Patient
EENT: Other (eye floaters); Negative Blurry Vision, Decreased Vision or Swallowing Difficulty
Respiratory: Negative Cough or Trouble Breathing
Cardiac: Negative Chest Pain or Palpitations
Abdomen/GI: Diarrhea
Genitourinary: Frequency
Musculoskeletal: Back Pain
Neuro: Headache, Weakness and Speech Problem; Negative Dizzy, Numbness, Ataxia or Tremors
Physical Exam
-
General: Wearing Oxygen
Eyes: No Ptosis and PERRLA
HEENT: Normocephalic and Atraumatic
Neck: Full Range of Motion
Respiratory: No Dyspnea
GI: Non-distended
Extremities: No Clubbing, No Cyanosis and No Edema
Extended Neurological Exam
Mood & Affect: Anxious
Attention Span & Concentration: Awake, Alert and Interactive
Memory: Reduced (Oriented to person, month/year, place. Forgetful/poor insight. Next holiday: Halloween, unable to name recent holidays.)
Tremor: Hand Tremor Absent and Head Tremor Absent
Involuntary Movement: None
Speech: Quality Unremarkable and Expressive Aphasia (mild word finding difficulty)
Cranial Nerve II: Left Eye: Pupillary Reactivity Unremarkable, Pupillary Size Unremarkable and Visual Michelle Intact
Cranial Nerve II: Right Eye: Pupillary Reactivity Unremarkable, Pupillary Size Unremarkable and Visual Michelle Intact
Cranial Nerves III, IV, : Extraocular Movement: Reduced (reduced upgaze)
Cranial Nerve V: Facial Sensation: Intact to Light Touch
Cranial Nerve VII: Facial Symmetry: Normal Facial Symmetry
Cranial Nerve VIII: Hearing: Grossly Reduced
Cranial Nerves IX, X: Palate Movement: Palate Elevation Symmetric
Cranial Nerve XI: Shoulder Shrug: Unremarkable
Cranial Nerve XII: Tongue Protusion: Midline
Muscle Strength, Overall: Other (BUE 4/5, BLE 3/5)
Muscle Bulk & Tone: Bulk Unremarkable and Tone Unremarkable
Pronator Drift: No Drift in Upper Extremities, Drift in Left Lower Extremity and Drift in Right Lower Extremity
Deep Tendon Reflexes: Unremarkable Throughout
Cold Sensation: Unremarkable
Vibration Sensation: Unremarkable
Touch Sensation: Double Simultaneous Stimulation Unremarkable
Coordination: Dpawbs-vmax-stybtt Testing Unremarkable
Babinski Sign: Absent Bilaterally
Gait & Station: Unable to Assess
Data Reviewed
-
CT Head: Report Reviewed and Image Reviewed
MRI Head: Report Reviewed and Image Reviewed
MRA Head: Report Reviewed and Image Reviewed
MRA Neck: Pending
Labs: Report Reviewed
Lipid Profile: Report Reviewed
HgbA1C: Report Reviewed
Reviewed with: Physician, Patient and Family
NIH Stroke Score
Subsequent NIH Scale
Date of Subsequent NIH Scale: 11/13/23
Time of Subsequent NIH Scale: 09:00
NIH Stroke Score
Level of Consciousness: 0 - Alert
LOC Questions: 0-Answers both correctly
LOC Commands: 0-Performs both correctly
Best Horizontal Gaze: 0-Normal
Visual Michelle: 0=Normal, no visual loss
Facial Palsy: 0=Normal, symmetrical
Motor - Right Arm: 0=No drift 10 seconds
Motor - Left Arm: 0=No drift 10 seconds
Motor - Right Le-Partial vs. gravity
Motor - Left Le-Partial vs. gravity
Limb Ataxia: 0-Absent
Sensation: 0-Normal
Best Language: 1-Mild aphasia
Dysarthria: 0-Normal
Extinction and Inattention: 0-No abnormality
Total Score:: 5
Medications
Medications
Medications reviewed.

Documented by User: Julianne Baez MD 11/13/23 15:29
NIH Stroke Score
NIH Stroke Score
Total Score:: 5
[2023-11-13] MEDS: DESENEX/MITRAZOL/ZEASORB TOPICAL (09:42)
[2023-11-13 09:51] LABS: ALT (SGPT) 34 U/L (0-35); AST (SGOT) 43 U/L (14-36); Albumin 3.1 g/dl (3.5-5.0); Alkaline Phosphatase 97 U/L (38-126); Blood Urea Nitrogen 15 mg/dl (7-17); Calcium 8.7 mg/dl (8.4-10.2); Carbon Dioxide 30 mmol/L (22-30); Chloride 105 mmol/L (98-107); Estimated Creatinine Clearance 64 ml/min; Glucose 88 mg/dl (70-99); Potassium 3.1 mmol/L (3.5-5.1); Sodium 139 mmol/L (135-145); Total Bilirubin 1.3 mg/dl (0.2-1.3); Total Protein 5.9 g/dl (6.3-8.2); eGFR 59.12
[2023-11-13 10:20] LABS: TSH Reflex To Free T4 1.28 uIU/ml (0.47-4.68)
[2023-11-13] MEDS: ROCEPHIN 1000 MG IV (11:33)
[2023-11-13 11:55] LABS: Glucose - Point of Care 88 mg/dl (70-99)
[2023-11-13] MEDS: KCL ELIXIR 40 MEQ PO (13:52)
[2023-11-13] MEDS: STERILE WATER FOR INJECTION 10 ML IV (13:52)
--- NOTE | 2023-11-13 14:23 | CM ---
Chart reviewed and correctional case manager met with patient and son Jakob at bedside, physical therapy are recommending acute rehab. Acute rehab options reviewed and patient has selected [facility], referral sent to [facility] [place]
[facility]. PM&R consult requested.
Plan; Referral sent to [facility].
--- NOTE | 2023-11-13 14:45 | W.PN.HOSP.TC ---
Today's Communication/Plan
-
Urology to make final plan whether patient needs inpatient procedure on not so we can make plans for discharge.
Await final urine cultures
Restart losartan
PT OT
Consult physiatry
Add probiotics
Assessment / Plan
Assessment / Plan
73-year-old female lives at home and gets help from sister. Sister recently was away on vacation was not able to get in touch with the patient which is unusual therefore checked on her upon returning home and found the patient was on the floor
covered in black vomitus. She is also confused. Patient is a poor historian. Son is at bedside he does not give me a good history either.
Son states that she has been confused since June or July when she was started on metformin which she states was not for diabetes but for elevated blood sugars. Then she was taken off of it because of diarrhea and also confusion. Her
confusion has not gotten better. He also states that she has been confused more lately. When asked if she has been taking and states patient states yes but again poor historian. Son states that she only takes Tylenol but he does not live with her.
11/11/23- Spoke to sister . Pt started getting confused as her rent was not being paid. and confusion with financial stuff. Sister asked her son to do her bills. She will come over and and help her. She was not going out of the house. She didn't feel
well Monday. Monday brother called and she sounded 'batty'. She stopped smoking 12 years ago . ' She was always a hippy . Doing drugs -marijuana, never taken care of herself'. Sister states that she has Tylenol by her bedside all the time. Sister
and patient's son also wanting her to be a DNR
MRI-several Scattered tiny acute/subacute infarcts bilateral cerebral hemispheres 1 of which is in the left parietal lobe with a small amount of hemosiderin deposition. Embolic. No definite dural venous sinus thrombosis or stenosis.
Confused
Patient is a little more organized today still confused
Cardiovascular system S1-S2 appreciated
Chest clear to auscultation decreased breath sounds at bases
Abdomen soft has some tenderness in the Right side and right CVA
Lower extremity no edema noted
# Coffee-ground emesis
Hemoglobin stable
Continue PPI -changed to PO
Follow H&H- Stable
Unclear if she was taking any NSAIDs-Per sister she is on Tylenol only
Does not seem to be on any anticoagulants. Takes aspirin 81 mg daily as outpatient
GI evaluation noted
No EGD
on Solid diet
# Embolic stroke
TME and confusion and memory issues secondary to strokes
Likely has vascular dementia also has Acute/subacute strokes.
No history of arrhythmias
Initial CAT scan of the head could not rule out small subarachnoid bleeding,Repeat CAT scan confirms blood products-stable size
Neurosurgery evaluation appreciated
No subarachnoid bleeding noted on MRI
OK for ASA
Echo
MRA motion artifact. CUS ordered
PT OT and speech evaluation
Neurology evaluation
NIH scale and neurochecks
Physiatry eval
# Reason for diarrhea unclear. Cultures are pending
Also add Giardia/ Cryptosporidium
# Leukocytosis
Chest x-ray reviewed by me-no evidence of pneumonia
Blood culture 1 set positive possible contaminant repeat stable
Urine with GNR-Added Rocephin-Treat as UTI
# CHARLY on CKD stage III
Likely prerenal
Also compromised right kidney function
Restart losartan
# Chronic diarrhea
Started after metformin in June and gotten better per son
Check stool studies while here
Never had a colonoscopy
Remains off of metformin now
Add probiotics
#Hypokalemia- replace
# Hydronephrosis on the right side which is new since 2021 with a small tissue mass possible
Unclear if right adnexal mass is pushing
# Diabetes-hemoglobin A1c 5.5
# Mild rhabdomyolysis-resolved
# Mild lactic acidosis-improved
#Large left thyroid lobe mass/nodule-needs an ultrasound and further workup as outpatient
Normal TSH
Son aware
# Hypertension-continue Coreg ,restart losartan
Started nifedipine here

# Chronic heart failure with preserved ejection fraction
Follows with Dr. Jourdan Moon
Patient is on Coreg, losartan as outpatient
son thinks she was on Lasix at 1 point not on The med list now
EKG sinus tachycardia with PACs
Echo 01/18/2022-technically difficult study. Normal biventricular size and function without regional wall motion abnormalities no change since 2018
# Hyperlipidemia/atherosclerosis-continue statin
# GERD/PUD-PPI
# Asthma/COPD
Continue as needed albuterol, Spiriva or equivalent
# Gout-continue allopurinol
# History of perforated diverticulitis 2021
# Hypoalbuminemia
# Sleep apnea-noncompliant with CPAP
She is chronic hypoxic at bedside respiratory failure-prescribed home oxygen
She has O2 , 'never uses , just let the machine run ' per sister.
# Calcified uterine fibroids, cystic lesion in the right adnexa 5.6 cm which previously measured 4 cm
This was found in 2021 and outpatient PACKAGING COORDINATOR follow-up recommended at that time
# Morbid Obesity-affects all aspects of care
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
Osteopenia
X-ray with arthritis changes
# Hepatic steatosis
# Hypoalbuminemia
# Cognitive dysfunction-looks like she has been gradually declining
Also now has CVA
# Ex-smoker
# DVT prophylaxis-SCDs
# DNR per D/W Sister and Son.
Discussed with nursing
Discussed with patient's son
D/W Urology
Time 51 min
Anticipated Discharge: > 48 hours
Subjective/Interval History
-
Date of Service: November 13, 2023
Objective Data
-
Labs:
Laboratory Results
11/13/23
08:14
WBC 8.0
Hgb 13.0
Hct 38.5
Plt Count 206
Sodium 139
Potassium 3.1 L
Chloride 105
Carbon Dioxide 30
BUN 15
Creatinine 1.0
Glucose 88
Calcium 8.7
Total Bilirubin 1.3
AST 43 H
ALT 34
Alkaline Phosphatase 97
Vital Signs:
Vital Signs
Temp Pulse Resp BP Pulse Ox
97.4 F 88 16 166/79 94
11/13/23 11:39 11/13/23 11:39 11/13/23 11:39 11/13/23 11:39 11/13/23 11:39
I&O
11/12/23 11/13/23 11/14/23
06:59 06:59 06:59
Intake Total 2810 / 2820 1420 / 1420
Output Total 1950 / 1950 2975 / 2975
Balance 860 / 870 -1555 / -1555
--- NOTE | 2023-11-13 15:38 | CON.CAR ---
Addendum entered and electronically signed by Zeb Orr MD 11/13/23 17:45:
73 yo female with PMH of chronic HFPEF, HTN, morbid obesity admitted with new embolic stroke. She was found down at home. Coffee ground emesis was noted as well. We are consulted to evaluate for cardiac source of embolus. Discussed with neurology
who recommends NAYLA. Exam with RRR, no murmurs, no edema. TTE: EF 55-60%, aortic sclerosis. Tele: NSR.
Discussed with GI: Hgb stable. No evidence of bleeding while here on PPI. OK to proceed to NAYLA from GI perspective.
Lengthy discussion with patient and son. Will proceed to NAYLA and ILR tomorrow if no cardiac source of embolus identified.
Original Note:
Consultation
Consultation Request
Date/Time Consultation Requested: 11/13/23 1525
Date/Time Consultation Performed: 11/13/23 1600
Requesting Provider: Dr. Baez
Performing Provider: Hemalatha JONES for Dr. Orr
Reason for Consultation: stroke
Medical History
-
Chief Complaint: confusion
History of Present Illness:
73 y/o female with chronic diastolic HF, hypertension, severe obesity, stage III CKD, COPD, chronic pain who is here for evaluation. She was found down in her house with coffee ground emesis. Her son, who is at the bedside, thinks she was there for
a day. She is not able to add to the history. CT scan showed small focus of increased attenuation in the left parietal lobe, concern for mild blood product; This measures 6 mm and is stable in size compared to the head CT from earlier in the same
day. Neuro and neuro surgery evaluated. Brain MRI showed several (approximately 15) scattered tiny acute/subacute infarcts throughout the bilateral cerebral hemispheres as described, one of which in the left parietal lobe has a small amount of
associated hemosiderin deposition/blood products. We are consulted to evaluate for NAYLA/cardiac cause. She has had recent diarrhea. She is being treated for UTI as well. Otherwise, he is seen to have large left thyroid lobe mass, as well as abnormal
CT scan (new severe right hydronephrosis and hydroureter with an abrupt transition at the level of the mid ureter where there is an 8 mm nodular focus of enhancement, raising concern for a ureteral neoplasm. Increased size of a simple appearing
cystic lesion in the right adnexa, now measuring up to 5.6 cm.). Finally, GI evaluated due to coffee ground emesis and she was on PPI- no further bleeding.
Past Medical History
Past Medical History: CHF, COPD, HTN and Other (as above)
Social History
Tobacco: Former Smoker
Living: Alone
Family History
Family History: Reviewed & Not Pertinent
Allergies / Home Medications
Allergy/AdvReac Type Severity Reaction Status Date / Time
Penicillins Allergy Hives Verified 11/09/23 21:16
Medication Instructions Recorded Confirmed Type
allopurinol 300 mg tablet 300 mg PO DAILY Gout 09/20/21 11/09/23 History
aspirin 81 mg chewable tablet 81 mg PO QPM Blood clot 09/20/21 11/09/23 History
prevention/tx
carvedilol 12.5 mg tablet 12.5 mg PO BID Heart 09/20/21 11/09/23 History
disease/condition
potassium chloride 10 mEq 10 meq PO DAILY Electrolyte 09/20/21 11/09/23 History
tablet,extended release(part/cryst) Repletion
potassium chloride 20 mEq 60 meq PO DAILY Electrolyte 09/20/21 11/09/23 History
tablet,extended Repletion
release(part/cryst) (Klor-Con M)
pravastatin 40 mg tablet 40 mg PO HS High cholesterol 09/20/21 11/09/23 History
tiotropium bromide 2.5 2 puff inhalation R DAILY 09/20/21 11/09/23 History
mcg/actuation mist for inhalation Lung/breathing issues
(Spiriva Respimat)
albuterol sulfate 90 mcg/actuation 2 puff inhalation R Q4 PRN 11/09/23 11/09/23 History
aerosol inhaler sob/wheezing
loperamide 2 mg capsule 2 mg PO Q4H PRN diarrhea 11/09/23 11/09/23 History
losartan 100 mg tablet 100 mg PO DAILY Blood Pressure 11/09/23 11/09/23 History
Review of Systems
-
History Source: Patient (not currently reliable historian, but denies any current symptoms), Family and Other (and chart)
All other systems: Negative unless noted
Abdomen/GI: Vomiting and Diarrhea
Neurological: Other (confusion)
Physical Exam
Vital Signs
Temp Pulse Resp BP Pulse Ox
97.4 F 88 16 166/79 94
11/13/23 11:39 11/13/23 11:39 11/13/23 11:39 11/13/23 11:39 11/13/23 11:39
Lab Results
11/13/23 08:14
11/13/23 08:14
Physical Exam
General: No Apparent Distress
HEENT: Normocephalic and Anicteric
Respiratory: Clear, Non Labored Respirations and Other (on O2 by NC)
Cardiac: Regular Rhythm
Neuro: Awake
Impression / Plan
-
Strokes:
-this diagnosis is threat to bodily function
-MRI as below
-neuro requesting eval for NAYLA- discussed with patient and son. Will discuss with Dr. Orr as well.
-also consider implantable loop recorder
-tele reviewed - SR. No afib noted.
-otherwise, management per neuro - medical therapy, etc.
HFpEF: chronic
-stable without SOB. Lungs clear.
-echo this admit: Estimated LVEF 55-60%. Mild concentric left ventricular hypertrophy. Aortic sclerosis without stenosis. Trivial pericardial effusion with fibrinous organization.
COPD:
-Stable without SOB or wheezing
-currently on O2 by NC
HTN:
-meds being adjusted by hospitalist
Severe obesity:
-would benefit from weight loss over time
Coffee ground emesis:
-resolved
-GI was on the case
Diarrhea:
-w/u underway
Thyroid mass: per primary
Urologic issues/mass:
-uro on case
-on abx for UTI
Data Reviewed
-
EKG: Tracing Personally Visualized and interpreted (ST with PAC's 127 BPM)
Radiology: Report Reviewed by me (CXR: No acute pulmonary process.)
MRI: Report Reviewed by me (Brain MRI: Several (approximately 15) scattered tiny acute/subacute infarcts throughout the bilateral cerebral hemispheres as described, one of which in the left parietal lobe has a small amount of associated hemosiderin
deposition/blood products, corresponding with CT findings.)
Medical Tests (Nuc Med, Echo etc): Report Reviewed by me (echo 11/13/23: Normal biventricular size and systolic function without regional wall motion abnormality. Estimated LVEF 55-60%. Mild concentric left ventricular hypertrophy. Aortic
sclerosis without stenosis. Trivial pericardial effusion with fibrinous organization.)
Labs: Labs Reviewed by me
[2023-11-13] MEDS: LIPITOR 80 MG PO (17:10)
[2023-11-13] MEDS: COZAAR 50 MG PO (17:10)
[2023-11-13] MEDS: TYLENOL 650 MG PO (17:13)
[2023-11-13] MEDS: FLORASTOR 250 MG PO (20:46)
[2023-11-13] MEDS: DESENEX/MITRAZOL/ZEASORB 1 APPLIC TOPICAL (20:47)
[2023-11-14] VITALS (9 sets, daily range): BP systolic 124–177; BP diastolic 59–90; PULSE 83; O2SAT 97; BMI 44.3
[2023-11-14] MEDS: COREG 12.5 MG PO ×2 (07:46→20:54)
[2023-11-14] MEDS: ZYLOPRIM 300 MG PO (07:46)
[2023-11-14] MEDS: PROTONIX 40 MG PO (07:46)
[2023-11-14] MEDS: COZAAR 50 MG PO (07:47)
[2023-11-14] MEDS: LIDOCAINE 4% PATCH 1 PATCH TOPICAL (07:47)
[2023-11-14] MEDS: DESENEX/MITRAZOL/ZEASORB 1 APPLIC TOPICAL ×2 (07:47→20:56)
[2023-11-14] MEDS: FLORASTOR 250 MG PO ×2 (07:47→20:56)
[2023-11-14] MEDS: PROCARDIA XL (EXTENDED RELEASE) 30 MG PO ×2 (07:47→20:55)
[2023-11-14] MEDS: SPIRIVA RESPIMAT 2.5 MCG 2 PUFF INH (08:03)
--- NOTE | 2023-11-14 08:29 | W.PN.CD ---
Addendum entered and electronically signed by Jourdan Moon MD 11/15/23 08:25:
I saw and examined the patient.
The PROMOTION SPECIALIST's note was reviewed and I agree with the note.
Comment: I saw and examined patient on 11/14/2023. NAYLA was performed and no obvious source for thrombus. Patient and son now agreeable for ILR.
Original Note:
Today's Communication / Plan
-
NAYLA today
The patient's son does not want ILR placed. The risks and benefits were reviewed at the bedside
Impression / Plan
-
BACKGROUND: 73F chronic diastolic HF, hypertension, severe obesity, stage III CKD, COPD, chronic pain who presented with confusion and coffee ground emesis
IMPRESSION/PLAN:
CVA, embolic
-MRI: Several (approximately 15) scattered tiny acute/subacute infarcts throughout the bilateral cerebral hemispheres
-No atrial fibrillation on telemetry
-Neurology following
Confusion, in the setting of CVA
HFpEF: chronic
-Stable without SOB. Lungs clear.
-Echo this admission stable
-Trend daily weight, I/Os with low sodium diet
COPD, stable without SOB or wheezing
HTN
-BP above goal
-Meds being adjusted by hospitalist
-Mild cLVH on TTE
Severe obesity, BMI 44, she would benefit from weight loss over time
Coffee ground emesis, resolved, GI signed off
Diarrhea, per primary
Thyroid mass: per primary
Urologic issues/mass, Urology following, on abx for UTI
SUBJECTIVE:
Confused but pleasant.
Physical Exam
Vital Signs/Labs
Vital Signs
Temp Pulse Resp BP Pulse Ox
97.6 F 78 15 177/74 96
11/14/23 07:45 11/14/23 08:08 11/14/23 08:08 11/14/23 07:47 03/19/24 07:45
11/13/23 11/14/23 11/15/23
06:59 06:59 06:59
Actual Weight 119.748 kg 120.797 kg
11/13/23 08:14
PT 12.8 Sec (11.4-14.6) 11/09/23 20:14
INR 0.96 11/09/23 20:14
APTT 31.3 Sec (23.4-35.0) 11/09/23 20:14
Magnesium 2.1 mg/dl (1.6-2.3) 11/12/23 03:27
Triglycerides 97 mg/dl (10-149) 11/12/23 03:27
LDL Cholesterol, Calc 89 mg/dl 11/12/23 03:27
VLDL Cholesterol, Calc 19 mg/dl (0-30) 11/12/23 03:27
HDL Cholesterol 39 mg/dl 11/12/23 03:27
Physical Exam
Constitutional: No acute distress and Comfortable
EENT: Anicteric and Moist mucous membranes
Cardiovascular: Rhythm & rate is regular, Pedal edema is absent and Murmur/rub/gallop absent
Respiratory: Respiratory effort normal and Lungs clear to auscul.
GI: Soft, Distention absent, Flat, Non tender and Normal bowel sounds
Neuro/Psych: Alert and Oriented (Self and place)
Other: Skin (warm and dry without edema)
Data Reviewed
-
Date of Service: November 14, 2023
EKG: Report Reviewed by me
Labs: Labs Reviewed by me
[2023-11-14 08:43] LABS: Blood Urea Nitrogen 18 mg/dl (7-17); Calcium 9.5 mg/dl (8.4-10.2); Carbon Dioxide 31 mmol/L (22-30); Chloride 101 mmol/L (98-107); Estimated Creatinine Clearance 71 ml/min; Glucose 102 mg/dl (70-99); Magnesium 2.1 mg/dl (1.6-2.3); Sodium 141 mmol/L (135-145); eGFR > 60.00
--- NOTE | 2023-11-14 09:04 | W.PN.NEURO.1 ---
Documented by User: Violeta Andre NP 11/14/23 10:39
Today's Communication / Plan
-
.
Neuro Assessment/Plan
Assessment
JANET BOSE is a 73 year old F who has presented to the hospital on 11/09/23 after being found down covered in black vomitus, likely for more than 24 hours; she has been more confused since July. HCT showed possible bleed.� MRI brain showed
several tiny bihemispheric acute/subacute infarcts, possibly embolic in etiology. IV Tenecteplase/IAT candidacy: Not a candidate due to out of time window for both/has bleed on imaging.
-CT head 11/09/23: Small linear focus of hyperattenuation in a left parietal lobe sulcus, which may be related to motion artifact. Minimal subarachnoid blood products are not excluded and a short-term follow-up head CT can be considered for
reevaluation.
-CT Cervical spine 11/09/23: No acute fracture or dislocation. Large left thyroid lobe mass/nodule. Recommend further evaluation with a thyroid ultrasound on an outpatient basis.
-MRI Brain 11/11/23: Several (approximately 15) scattered tiny acute/subacute infarcts throughout the bilateral cerebral hemispheres as described, one of which in the left parietal lobe has a small amount of associated hemosiderin deposition/blood
products, corresponding with CT findings. Findings may be of embolic etiology.
-MRA COW 11/11/23: No definite dural venous sinus thrombosis/stenosis identified. No overt focal hemodynamically significant stenosis, aneurysm or occlusion.
-CT Abd/pelvis 11/09/23: New severe right hydronephrosis and hydroureter with an abrupt transition at the level of the mid ureter where there is an 8 mm nodular focus of enhancement, raising concern for a ureteral neoplasm.
Increased size of a simple appearing cystic lesion in the right adnexa, now measuring up to 5.6 cm.
-Xray Lumbar spine 11/11/23: Moderate multilevel degenerative changes of the lumbar spine without evidence for acute fracture.
I. Several (about 15) scatted tiny acute/subacute ischemic infarcts throughout bilateral cerebral hemispheres; one of which in the left parietal lobe has a small hemorrhagic component. Etiology likely embolic.
II. Urine culture positive for gram negative rods.
III. Right hydronephrosis and pelvic mass.
IV. Left thyroid nodule.
Plan
-Carotid ultrasound final read pending, MRA neck inconclusive exam due to motion artifact.
-NAYLA today. If unremarkable, recommending ILR placement. Son reluctant to proceed with ILR due to causing the patient more discomfort, discussed benefits of procedure.
-Aspirin 81mg daily initiated.
-BP goal is normotension.
-PRN Tylenol and Compazine for headache if it returns.
-Infection workup/treatment per primary team.
-Continue telemetry monitoring.
-Goal is normoglycemia, HgbA1C is normal at 5.5.
-LDL goal <70. LDL is 89. Home pravastatin 40mg changed to atorvastatin 80mg daily.
-NIHSS and neurological checks per unit guidelines.
-Provide patient/family with a stroke education packet.
-PT/OT/ST evaluations.
-DVT prophylaxis.
Subjective/Objective
Subjective Data
Date of Service: November 14, 2023
No acute events overnight. Patient complaining of whole body discomfort and middle back pain. She denies any headache, vision changes, dizziness, speech/swallow difficulty, numbness, focal weakness, chest pain, palpitations, and shortness of breath.
Objective Data
Vital Signs
Temp Pulse Resp BP Pulse Ox
97.6 F 78 15 177/74 96
11/14/23 07:45 11/14/23 08:08 11/14/23 08:08 11/14/23 07:47 11/14/23 07:45
Lab Results
11/13/23 08:14
11/14/23 07:50
PT 12.8 Sec (11.4-14.6) 11/09/23 20:14
INR 0.96 11/09/23 20:14
APTT 31.3 Sec (23.4-35.0) 11/09/23 20:14
Sodium 141 mmol/L (135-145) 11/14/23 07:50
Potassium 3.0 mmol/L (3.5-5.1) L 11/14/23 07:50
BUN 18 mg/dl (7-17) H 11/14/23 07:50
Glucose 102 mg/dl (70-99) H 11/14/23 07:50
Calcium 9.5 mg/dl (8.4-10.2) 11/14/23 07:50
Phosphorus 4.3 mg/dl (2.5-4.5) 11/10/23 03:55
LDL Cholesterol, Calc 89 mg/dl 11/12/23 03:27
Vitamin B12 791 pg/ml (239-931) 11/10/23 01:30
Ur Buprenorphine Negative (Negative) 11/09/23 21:28
Patient Allergies
Penicillins Allergy (Verified 11/09/23 21:16)
Hives
LDL Level: >70, statin ordered
Review of Systems
-
History Source: Patient
EENT: Negative Blurry Vision, Decreased Vision or Swallowing Difficulty
Respiratory: Negative Cough or Trouble Breathing
Cardiac: Negative Chest Pain or Palpitations
Abdomen/GI: Diarrhea
Genitourinary: Frequency and Flank Pain
Musculoskeletal: Back Pain
Neuro: Weakness; Negative Dizzy, Headache, Numbness, Ataxia, Tremors or Speech Problem
Physical Exam
-
General: No Apparent Distress
Eyes: No Ptosis and PERRLA
HEENT: Normocephalic and Atraumatic
Neck: Full Range of Motion
Respiratory: No Dyspnea
GI: Non-distended
Extremities: Edema +1 (BLE, venous changes)
Psych: Confused
Extended Neurological Exam
Mood & Affect: Anxious
Attention Span & Concentration: Awake, Alert, Interactive and Severe Difficulty with 2 Step Request
Memory: Reduced (Ox3, forgetful. When asked to name upcoming holidays states upcoming months instead.)
Tremor: Rhythmic Distal 3/sec (R hand) and With Action
Speech: Quality Unremarkable, Quantity Unremarkable, Rate of Production Unremarkable and Expressive Aphasia (very mild)
Cranial Nerve II: Left Eye: Pupillary Reactivity Unremarkable, Pupillary Size Unremarkable and Visual Michelle Intact
Cranial Nerve II: Right Eye: Pupillary Reactivity Unremarkable, Pupillary Size Unremarkable and Visual Michelle Intact
Cranial Nerves III, IV, : Extraocular Movement: Extraocular Movement Full in all Directions
Cranial Nerve V: Facial Sensation: Intact to Light Touch
Cranial Nerve VII: Facial Symmetry: Normal Facial Symmetry
Cranial Nerve VIII: Hearing: Grossly Reduced
Cranial Nerves IX, X: Palate Movement: Palate Elevation Symmetric
Cranial Nerve XI: Shoulder Shrug: Unremarkable
Cranial Nerve XII: Tongue Protusion: Midline
Muscle Strength, Overall: Reduced Throughout (BUE 5-/5, BLE 4/5)
Muscle Bulk & Tone: Bulk Unremarkable and Tone Unremarkable
Pronator Drift: No Drift in Upper Extremities, Drift in Left Lower Extremity and Drift in Right Lower Extremity
Touch Sensation: Double Simultaneous Stimulation Unremarkable
Coordination: Ggffox-rmyi-saecil Testing Unremarkable
Modified Timothy Score (MRS)
-
Modified Timothy Scale (mRS): Moderate disability. Requires some help, able to walk unassisted.
Score: 3
Data Reviewed
-
CT Head: Report Reviewed and Image Reviewed
MRI Head: Report Reviewed and Image Reviewed
MRA Head: Report Reviewed and Image Reviewed
MRA Neck: Report Reviewed and Image Reviewed
Carotid Ultrasound: Report Reviewed
Labs: Report Reviewed
Lipid Profile: Report Reviewed
HgbA1C: Report Reviewed
Reviewed with: Physician and Patient
NIH Stroke Score
Subsequent NIH Scale
Date of Subsequent NIH Scale: 11/14/23
Time of Subsequent NIH Scale: 09:00
NIH Stroke Score
Level of Consciousness: 0 - Alert
LOC Questions: 0-Answers both correctly
LOC Commands: 0-Performs both correctly
Best Horizontal Gaze: 0-Normal
Visual Michelle: 0=Normal, no visual loss
Facial Palsy: 0=Normal, symmetrical
Motor - Right Arm: 0=No drift 10 seconds
Motor - Left Arm: 0=No drift 10 seconds
Motor - Right Le-Drift < 5 seconds
Motor - Left Le-Drift < 5 seconds
Limb Ataxia: 0-Absent
Sensation: 0-Normal
Best Language: 1-Mild aphasia
Dysarthria: 0-Normal
Extinction and Inattention: 0-No abnormality
Total Score:: 3
Modified Rutherford (mRS) Score
Modified Timothy Scale (mRS): Moderate disability. Requires some help, able to walk unassisted.
Score: 3
Medications
-
Active Medications
Generic Name Dose Route Start Last Admin
Trade Name Freq PRN Reason Stop Dose Admin
Acetaminophen 650 mg 11/09/23 22:44
Acetaminophen 650 Mg Rectal Suppository RECTAL 12/07/23 22:43
Q4HPRN PRN
mild pain/WADE/temp> 100.4F
Acetaminophen 650 mg 11/10/23 09:58 11/13/23 17:13
Acetaminophen 325 Mg Tablet PO 12/08/23 09:57 650 mg
Q6HPRN PRN Administration
mild pain/ fever>100.5F
Albuterol 2 puff 11/10/23 09:54
Albuterol Hfa [90 Mcg/Dose] Inhaler INH
R Q4 PRN
sob/wheezing
Protocol
Albuterol/Ipratropium 3 ml 11/09/23 22:44
Ipratropium 0.5/Albuterol 3 Mg (3 Ml Ampul) INH
R Q4HPRN PRN
shortness of breath
Protocol
Allopurinol 300 mg 11/10/23 10:00 03/19/24 07:46
Allopurinol 300 Mg Tablet PO 12/08/23 09:59 300 mg
DAILY GILL Administration
Aspirin 81 mg 11/14/23 09:00
Aspirin 81 Mg Chewable Tablet PO 12/12/23 08:59
DAILY GILL
Atorvastatin Calcium 80 mg 11/12/23 18:00 11/13/23 17:10
Atorvastatin (Lipitor) 80 Mg Tablet PO 12/10/23 17:59 80 mg
QPM GILL Administration
Carvedilol 12.5 mg 11/10/23 10:00 11/14/23 07:46
Carvedilol 12.5 Mg Tablet PO 12/08/23 09:59 12.5 mg
BID GILL Administration
Dextrose 12.5 grams 11/09/23 22:44
Dextrose 50% (0.5 Grams/Ml) 50 Ml Syringe IV 12/07/23 22:43
[id number] PRN
hypoglycemia
Protocol
Glucagon 1 mg 11/09/23 22:44
Glucagon 1 Mg Vial IM 12/07/23 22:43
PRN PRN
hypoglycemia
Protocol
Potassium Chloride 40 meq/ 270 mls @ 67.5 mls/hr 11/14/23 09:02
Sodium Chloride IV 11/14/23 13:01
NOW STA
Labetalol HCl 10 mg 11/10/23 19:51 11/10/23 20:13
Labetalol Hcl 5 Mg/1 Ml (20 Mg/4 Ml) Injection IV 12/08/23 19:50 10 mg
Q6HPRN PRN Administration
SBP > 160
Lidocaine 1 patch 11/10/23 10:00 11/14/23 07:47
Lidocaine 4% Topical Patch TOPICAL 12/08/23 09:59 1 patch
DAILY GILL Administration
Losartan Potassium 50 mg 11/13/23 15:00 11/14/23 07:47
Losartan 50 Mg Tablet PO 12/11/23 14:59 50 mg
DAILY GILL Administration
Meropenem 500 mg 11/14/23 10:00
Meropenem 500 Mg/10 Ml Vial IV
Q6H GILL
Miconazole Nitrate 0 applic 11/13/23 08:00 11/14/23 07:47
Miconazole Powder Bottle TOPICAL 12/11/23 07:59 1 applic
BID GILL Administration
Morphine Sulfate 2 mg 11/11/23 12:19 11/13/23 09:23
Morphine 2 Mg/Ml Syringe IV 11/25/23 12:18 2 mg
Q4HPRN PRN Administration
severe pain
Nifedipine 30 mg 11/12/23 12:00 11/14/23 07:47
Nifedipine 30 Mg Extended Release Tablet PO 12/10/23 11:59 30 mg
DAILY GILL Administration
Pantoprazole Sodium 40 mg 11/14/23 08:00 11/14/23 07:46
Pantoprazole 40 Mg Delayed Release Tablet PO 12/12/23 07:59 40 mg
DAILY GILL Administration
Patch Removal 0 patch 11/10/23 20:00 11/13/23 20:47
Remove Lidocaine Patch REMOVE 12/08/23 19:59 1 patch
DAILY@2000 GILL Administration
Prochlorperazine Edisylate 5 mg 11/09/23 22:44
Prochlorperazine 10 Mg/2 Ml Vial IV 12/07/23 22:43
Q6HPRN PRN
Nausea
Saccharomyces Boulardii 250 mg 11/13/23 20:00 11/14/23 07:47
Saccharomyces Boulardi (Florastor) 250 Mg Capsule PO 12/11/23 19:59 250 mg
BID GILL Administration
Sodium Chloride 0 flush 11/09/23 23:00
Sodium Chloride 0.9% (Flush) Syringe IV 12/07/23 22:59
PER PROTOCOL GILL
Sterile Water 10 ml 11/14/23 10:00
Sterile Water For Injection 10 Ml Vial IV 12/12/23 09:59
Q6H GILL
Tiotropium [place] 2 puff 11/10/23 10:00 11/14/23 08:03
Tiotropium (Spiriva Respimat) 2.5 Mcg Inhaler INH 12/08/23 09:59 2 puff
R DAILY GILL Administration
Protocol
Home Medications
Medication Instructions Recorded
allopurinol 300 mg tablet 300 mg PO DAILY Gout 09/20/21
aspirin 81 mg chewable tablet 81 mg PO QPM Blood clot 09/20/21
prevention/tx
carvedilol 12.5 mg tablet 12.5 mg PO BID Heart 09/20/21
disease/condition
potassium chloride 10 mEq 10 meq PO DAILY Electrolyte 09/20/21
tablet,extended release(part/cryst) Repletion
potassium chloride 20 mEq 60 meq PO DAILY Electrolyte 09/20/21
tablet,extended Repletion
release(part/cryst) (Klor-Con M)
pravastatin 40 mg tablet 40 mg PO HS High cholesterol 09/20/21
tiotropium bromide 2.5 2 puff inhalation R DAILY 09/20/21
mcg/actuation mist for inhalation Lung/breathing issues
(Spiriva Respimat)
albuterol sulfate 90 mcg/actuation 2 puff inhalation R Q4 PRN 11/09/23
aerosol inhaler sob/wheezing
loperamide 2 mg capsule 2 mg PO Q4H PRN diarrhea 11/09/23
losartan 100 mg tablet 100 mg PO DAILY Blood Pressure 11/09/23

Documented by User: Julianne Baez MD 11/14/23 17:58
Modified Rutherford Score (MRS)
-
Score: 3
NIH Stroke Score
NIH Stroke Score
Total Score:: 3
Modified Rutherford (mRS) Score
Score: 3
[2023-11-14] MEDS: TYLENOL 650 MG PO (09:54)
[2023-11-14] MEDS: LOW STRENGTH ASPIRIN 81 MG PO (09:54)
[2023-11-14] MEDS: KCL 270 MEQ IV (09:54)
[2023-11-14] MEDS: KCL 20 MEQ PO (09:54)
[2023-11-14] MEDS: STERILE WATER FOR INJECTION 10 ML IV ×3 (09:55→22:27)
[2023-11-14] MEDS: MERREM 500 MG IV ×3 (09:55→22:28)
--- NOTE | 2023-11-14 10:18 | PTCARENOTE ---
pt wakes to name. ruby. states pain in back tylenol and lido patch given. pt takes pills with water. nihss 0. pt moving all ext. no aphasia noted. pt son at bedside. reviewed pt condition and plan of care.
--- NOTE | 2023-11-14 10:34 | W.PN.HOSP.TC ---
Today's Communication/Plan
-
NAYLA
ID eval
AB change to Meropenem
USS
PT OT
Assessment / Plan
Assessment / Plan
73-year-old female lives at home and gets help from sister. Sister recently was away on vacation was not able to get in touch with the patient which is unusual therefore checked on her upon returning home and found the patient was on the floor
covered in black vomitus. She is also confused. Patient is a poor historian. Son is at bedside he does not give me a good history either.
Son states that she has been confused since June or July when she was started on metformin which she states was not for diabetes but for elevated blood sugars. Then she was taken off of it because of diarrhea and also confusion. Her
confusion has not gotten better. He also states that she has been confused more lately. When asked if she has been taking and states patient states yes but again poor historian. Son states that she only takes Tylenol but he does not live with her.
11/11/23- Spoke to sister . Pt started getting confused as her rent was not being paid. and confusion with financial stuff. Sister asked her son to do her bills. She will come over and and help her. She was not going out of the house. She didn't feel
well Monday. Monday brother called and she sounded 'batty'. She stopped smoking 12 years ago . ' She was always a hippy . Doing drugs -marijuana, never taken care of herself'. Sister states that she has Tylenol by her bedside all the time. Sister
and patient's son also wanting her to be a DNR
MRI-several Scattered tiny acute/subacute infarcts bilateral cerebral hemispheres 1 of which is in the left parietal lobe with a small amount of hemosiderin deposition. Embolic. No definite dural venous sinus thrombosis or stenosis.
Confused
Patient is a little more organized today still confused
Cardiovascular system S1-S2 appreciated
Chest clear to auscultation decreased breath sounds at bases
Abdomen soft has some tenderness in the Right side and right CVA, also has pain left
Lower extremity no edema noted
Patient is able to move all extremities. Good peripheral strength
Echo 11/13/2023-normal biventricular size and systolic function. Ejection fraction 55 to 60%. Mild concentric LVH. Arctic sclerosis without stenosis. Trivial evaluation with fibrinous organization
# Embolic stroke
TME and confusion and memory issues secondary to strokes
Likely has vascular dementia also has Acute/subacute strokes.
No history of arrhythmias
Initial CAT scan of the head could not rule out small subarachnoid bleeding,Repeat CAT scan confirms blood products-stable size
Neurosurgery evaluation appreciated
No subarachnoid bleeding noted on MRI
OK for ASA per neuro surgery
Echo-NAYLA today 11/14/23
MRA motion artifact. CUS ordered- results pending
PT OT and speech
Neurology
NIH scale and neurochecks
Physiatry eval
# Coffee-ground emesis
Hemoglobin stable
Continue PPI -changed to PO
Follow H&H- Stable
Per sister she is on Tylenol only
GI evaluation noted
No EGD
on Solid diet
# Reason for diarrhea on admission unclear.
Started after metformin in June and gotten better per son
Cultures are neg
Never had a colonoscopy
Remains off of metformin now
Added probiotics
Diarrhea resolved
# ESBL UTI_ AB changed to Meropenem
ID eval requested.
# Hypertension-continue Coreg ,Losartan increased to 50 BID
Started nifedipine here increase to 30 BID
PRN Labetalol till BP meds titrated up
# CHARLY
CKD ruled out
Likely prerenal
Also compromised right kidney function
#Hypokalemia- replace
# Hydronephrosis on the right side which is new since 2021 with a small tissue mass possible
Unclear if right adnexal mass is pushing
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
If neurology clears patient may have a procedure on Monday per discussion with urology.
# Mild rhabdomyolysis-resolved
# Mild lactic acidosis-improved
#Large left thyroid lobe mass/nodule-needs an ultrasound and further workup as outpatient
Normal TSH
Son aware
# Back pain-lumbar x-rays noted. Also get thoracic spine x-ray.
Son does not want patient to take narcotics. I do not think tramadol is a good choice given her CVA.
Also she is recovering from acute kidney injury therefore NSAIDs held

# Diabetes history -hemoglobin A1c 5.5
# Chronic heart failure with preserved ejection fraction
Follows with Dr. Jourdan Moon
Patient is on Coreg, losartan as outpatient
son thinks she was on Lasix at 1 point not on The med list now
EKG sinus tachycardia with PACs
Echo 01/18/2022-technically difficult study. Normal biventricular size and function without regional wall motion abnormalities no change since 2018
# Hyperlipidemia/atherosclerosis-continue statin
# GERD/PUD-PPI
# Asthma/COPD
Continue as needed albuterol, Spiriva or equivalent
# Gout-continue allopurinol
# History of perforated diverticulitis 2021
# Hypoalbuminemia
# Sleep apnea-noncompliant with CPAP
She is chronic hypoxic at bedside respiratory failure-prescribed home oxygen
She has O2 , 'never uses , just let the machine run ' per sister.
# Calcified uterine fibroids, cystic lesion in the right adnexa 5.6 cm which previously measured 4 cm
This was found in 2021 and outpatient [employer]UM PL[employer] OPERATOR follow-up recommended at that time
# Morbid Obesity-affects all aspects of care
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
Osteopenia
X-ray with arthritis changes
# Hepatic steatosis
# Hypoalbuminemia
# Cognitive dysfunction-looks like she has been gradually declining
Also now has CVA
# Ex-smoker
# DVT prophylaxis-SCDs
# DNR per D/W Sister and Son.
Discussed with nursing
Discussed with patient's son at bed side. All questions answered. He was very thankful and mentioned that .
D/W Urology
D/W Cards and GI
Time 53 min
Anticipated Discharge: > 48 hours
Subjective/Interval History
-
Date of Service: November 14, 2023
Objective Data
-
Labs:
Laboratory Results
11/14/23
07:50
Sodium 141
Potassium 3.0 L
Chloride 101
Carbon Dioxide 31 H
BUN 18 H
Creatinine 0.9
Glucose 102 H
Calcium 9.5
Vital Signs:
Vital Signs
Temp Pulse Resp BP Pulse Ox
97.6 F 78 15 177/74 95
11/14/23 07:45 11/14/23 08:08 11/14/23 08:08 11/14/23 07:47 11/14/23 10:17
I&O
11/13/23 11/14/23 11/15/23
06:59 06:59 06:59
Intake Total 1420 / 1420 2390 / 2390
Output Total 2975 / 2975 50 / 50
Balance -1555 / -1555 2340 / 2340
--- NOTE | 2023-11-14 11:09 | W.PN.URO.CBU ---
Today's Communication / Plan
-
treat UTI
tentative OR on Monday
Assessment / Plan
-
New right hydroureteronephrosis and pelvic soft tissue mass of unclear etiology: ?intraureteral or adnexal
Normal renal function
No right renal colic
ESBL UTI
---
discussed with med team
i believe kidney needs to be decompressed prior to discharge as pt would have liklihood with UTI or re-admit sepsis
tentative plan for OR monday for diagnostic cysto/retrograde and attempt and ureteroscopy/bx and stent- if this was unsuccessful- would need to reconsult IR for perc placement which we known would be difficult due to pt's size
reviewed with son
will follow clinically and make final determination regarding surgery as date approaches
Diagnosis
-
Date of Service: November 14, 2023
-
Patient Diagnosis:
Right hydroureteronephrosis (new) with ureteral or periureteral soft tissue in upper pelvis
Encephalopathy/embolic shower to brain
Diarrhea/vomiting
ESBL UTI
Essentially normal renal function
Subjective
-
pt seen today with son at bedside
she dose awake to questioning- says she has pain all over
no fevers/nl wbc and cr level
ucx + for esbl - on meropen- ID consult pending
awiting completion of neuro eval
Objective
-
Vital Signs
Temp Pulse Resp BP Pulse Ox
97.6 F 78 15 177/74 95
11/14/23 07:45 11/14/23 08:08 11/14/23 08:08 11/14/23 07:47 11/14/23 10:17
Intake and Output
11/13/23 11/14/23 11/15/23
06:59 06:59 06:59
Intake Total 1420 / 1420 2390 / 2390
Output Total 2975 / 2975 50 / 50
Balance -1555 / -1555 2340 / 2340
Intake:
Oral fluids 1240 / 1240 2390 / 2390
IV fluids (Total) 180 / 180
PPI 180 / 180
Output:
Liquid stool amount 25 / 25 50 / 50
Rectum 25 / 25 50 / 50
Urine, Voided 2950 / 2950
Other:
How many times incontinent 1 2
MODERATE amount urine
How many times incontinent 1 2
SATURATED amount urine
Laboratory Results
11/13/23 08:14
11/14/23 07:50
Review of Systems
-
Constitutional: Fatigue
Respiratory: No Symptoms
Cardiac: No Symptoms
Abdomen/GI: Nausea
Physical Exam
-
General - chronically ill appearing, , no acute distress
Abdomen - obese, no rebound or guarding
--- NOTE | 2023-11-14 12:13 | PTCARENOTE ---
pt sent to cardiovascular lab director. pt complaining of back pain tylenol given. pt awake oriented x3 but is forgetful. moving all ext.
--- NOTE | 2023-11-14 13:07 | CM ---
Chart reviewed and referral sent to [facility], showcase maker will await PM&R evaluation and recommendation. Possible OR on Monday per notes.
Plan; To follow with patient for possible acute rehab placement.
[2023-11-14] MEDS: LIDOCAINE 4% PATCH TOPICAL (13:29)
--- NOTE | 2023-11-14 13:59 | CON.ID ---
Consultation
-
Date/Time Consultation Requested: 11/14/2023, 1355
Date/Time Consultation Performed: 11/13/2022, 1400
Requesting Provider: Dr. Nicole Moore
Performing Provider: Dr. Maritza Cruz
Reason for Consultation: ESBL- UTI
Chief Complaint / Past History
Chief Complaint
Found down.
History of Present Illness
Pt's son at bedside who provides most of the history. She is a 73 year old female with DM2, CKD3, HFpEF, class III obesity who was found down at home covered in black vomitus brought to ED 11/08. Per son, pt was started on metformin in 06/2023.
Afterwards she developed persistent diarrhea and confusion. She forgot to pay her rent and son has to take over finances. Metformin was discontinued on 07/2023. However, pt with persistent diarrhea and confusion. Patient could not recall events
surrounding recent N/V. In hospital, UA neg, blood cx neg, C. diff neg. CT a/p showed new severe right hydronephrosis with 8mm nodular enhancement. Brain MRI showed multiple acute/subacute small infarct concerning for embolic CVA. She just
returned from [facility] now. Also, MRA neck 4cm mass on left lobe thyroid. UA neg 11/08, 11/09. 11/10 1+LE, 26-30 WBC Ucx ESBL-Ecoli. No history of UTI's in the past. Pt states no dysuria, urgency or flank pain. Still has diarrhea. Never had colonoscopy.
Per son, mental status improved but still with periods of confusion.
Past History
Additional Past Medical History:
DM-II
COPD
Hypertension
HFpEF
DDD / Osteoporosis
Morbid Obesity BMI 44
Gout
GERD / PUD
diverticulitis
Allergy History:
Penicillins Allergy (Verified 11/09/23 21:16)
Hives
Medications Reviewed: Yes
Current Antibiotics:
Meropenem 500mg IV q6 d1
Social History
Tobacco: Former Smoker
Alcohol: None
Drug: None
Living: Alone
Family History
Family History: Not Pertinent
Review of Systems
Review of Systems
General: Negative Fever or Chills
HEENT: Negative Sinus Problems, Headache or Pharyngitis
Cardiovascular: Negative Chest Pain
Respiratory: Negative Dyspnea or Cough
Genital / Urological: Negative Dysuria or Flank Pain
Musculoskeletal: Negative Arthralgias
Skin / Hair / Nails: Negative Rash
Neurological: Negative Headache or Dizziness
All systems: All other systems were reviewed and were negative
Vital Signs
Temp Pulse Resp BP Pulse Ox
97.6 F 78 15 177/74 95
11/14/23 07:45 11/14/23 08:08 11/14/23 08:08 11/14/23 07:47 11/14/23 10:17
Physical Exam
Physical Exam
Constitutional: No Acute Distress, Comfortable and Obese
Eyes: No Conjunctival Hemorrhage and Sclera Anicteric
Pharynx: Benign
Cardiovascular: Regular Rate and S1/S2
Pulmonary: Clear
Gastrointestinal: Soft, Non Tender, Non Distended and Normal Bowel Sounds
Genito-Urinary: Negative Hilario or CVA Tenderness
Extremities: Negative Edema, Erythema, Splinter Hemorrhage or Janeway Lesions
Skin: Negative Rash
Neurological: Awake and Alert; Negative Meningeal Signs
Psychological: Confused (intermittent)
Lab / Diagnostic Study Results
11/13/23 08:14
11/14/23 07:50
Abs Immat Gran (auto) 0.1 10^3/uL (0-0.05) H 11/09/23 19:27
Absolute Neuts (auto) 11.2 10^3/uL (1.4-6.5) H 11/09/23 19:27
Absolute Lymphs (auto) 0.6 10^3/uL (1.2-3.4) L 11/09/23 19:27
Absolute Monos (auto) 0.5 10^3/uL (0.1-0.6) 11/09/23 19:27
Absolute Basos (auto) 0.0 10^3/uL (0-0.2) 11/09/23 19:27
Immature Gran % 0.4 % (0-0.5) 11/09/23 19:27
Neutrophils % 90.2 % (42.2-75.2) H 11/09/23 19:27
Lymphocytes % 5.0 % (20.5-51.1) L 11/09/23 19:
Monocytes % 4.0 % (1.7-9.3) 11/09/23 19:
Eosinophils % 0.2 % (0-6) 11/09/23 19:
Basophils % 0.2 % (0-2) 11/09/23 19:
PT 12.8 Sec (11.4-14.6) 11/09/23 20:14
INR 0.96 11/09/23 20:14
Lactic Acid 1.7 mmol/L (0.7-2.0) 11/10/23 03:55
Urine WBC 3-5 /HPF (0-5) 11/09/23 21:28
Ur Squamous Epith Cells 0-2 /LPF (Few) 11/11/23 14:49
Microbiology Results
Micro:
11/11/23 12:08 Blood Culture - Preliminary
Blood/Venous No Growth in 72 hours- Final report to follow
11/12/23 11:52 Salmonella/Shigella Culture - Final
Feces/Stool No Salmonella, Shigella, Aeromonas or Plesiomonas species
isolated.
Campylobacter Culture - Final
No Campylobacter species isolated.
Shiga Toxin Test - Final
No E. coli Shiga Toxin 1 or 2 detected.
11/11/23 14:49 Urine Culture - Final
Urine Escherichia coli - ESBL
11/13/23 18:12 Cryptosporidium/Giardia - Final
Feces/Stool Negative for Cryptosporidium and/or Giardia Lamblia
antigens.
11/10/23 15:26 Blood Culture - Preliminary
Blood/Venous No Growth in 72 hours- Final report to follow
11/12/23 11:52 C. difficile GDH Antigen & Toxins - Final
Feces/Stool Negative for toxigenic C.difficile
11/10/23 15:26 Blood Culture - Preliminary
Blood/Venous Coagulase neg. staphylococcus
Additional testing on request
Gram Stain - Preliminary
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 Increased size of a simple
appearing cystic lesion in the right adnexa, now measuring up to 5.6 cm.
11/11/23 Brain MRI: Several (approximately 15) scattered tiny acute/subacute infarcts throughout the bilateral cerebral hemispheres as described, one of which in the left parietal lobe has a small amount of associated hemosiderin deposition/blood
products, corresponding with CT findings. Findings may be of embolic etiology. No definite dural venous sinus thrombosis/stenosis identified. No overt focal hemodynamically significant stenosis, aneurysm or occlusion.
Assessment / Plan
# Right obstructive uropathy, possibly extrinsic compression from pelvic mass
- 11/08 and 11/09 UA bland.
-11/10 UA 1+LE, 26-30WBC, Ucx 100K ESBL-Ecoli. CT: no renal perinephric stranding
- Per Urology, to OR 11/16 for cystoscopy
- Continue meropenem.
# Embolic CVA
- [facility] result pending
-blood cx's negative
# Confusion since 06/2023
# Chronic diarrhea since 06/2023
- Of note, pt never had colonoscopy
- C. diff neg. O+P neg.
# Left thyroid mass
- Outpt workup
--- NOTE | 2023-11-14 14:39 | PTCARENOTE ---
pt returned to 4w bed. aaox3. mid chest wall dressing c/d/i. pt inc or urine and stool.
--- NOTE | 2023-11-14 14:42 | CON.MD ---
Documented by User: Cindy Barbosa PA-C 11/15/23 16:35
Consultation - Medical
-
Referring: Dr. Babatunde Ricci
Chief Complaint: CVA
�
History of Present Illness: 73y F with PMH significant for (DM-II, obesity, CKD3, CHF, COPD, and diverticular disease) presented to [facility] after being found down at home by her sister covered in copious, black vomitus.�Per son, pt was started
on metformin in 06/2023. Afterwards she developed persistent diarrhea and confusion.� She forgot to pay her rent and son has to take over finances.� Metformin was discontinued on 07/2023.� However, pt with persistent diarrhea and confusion.� Patient
could not recall events surrounding recent N/V.� In hospital, UA neg, blood cx neg, C. diff neg. � CT abdomen/pelvis showed new severe right hydronephrosis with 8mm nodular enhancement. Brain MRI showed multiple acute/subacute small infarct
concerning for embolic CVA. �MRA neck 4cm mass on left lobe thyroid. Per urology, kidney needs to be decompressed prior to discharge as pt would have likelihood with UTI or re-admit sepsis tentative plan for OR TOMORROW for diagnostic
cysto/retrograde and attempt and ureteroscopy/bx and stent- if this was unsuccessful- would need to reconsult IR for percutaneous placement which would be difficult due to pt's size.
Per patient's son, Mom has been off the metformin for about a month and a half and continues to suffer from chronic diarrhea of unknown etiology. She has been chronically taking Imodium at home. Patient is complaining of sour stomach and not
feeling her best. Not much of appetite.
11/09/23 CT � New severe right hydronephrosis and hydroureter with an abrupt transition at the level of the mid ureter where there is an 8 mm nodular focus of enhancement, raising concern for a ureteral neoplasm. Increased size of a simple appearing
cystic lesion in the right adnexa, now measuring up to 5.6 cm.
11/11/23 Brain MRI: Several (approximately 15) scattered tiny acute/subacute infarcts throughout the bilateral cerebral hemispheres as described, one of which in the left parietal lobe has a small amount of associated hemosiderin deposition/blood
products, corresponding with CT findings. Findings may be of embolic etiology. No definite dural venous sinus thrombosis/stenosis identified. No overt focal hemodynamically significant stenosis, aneurysm or occlusion.
Speech- No gross signs of aspiration with thin liquid trials. Patient agitated and refused meds pass. Given functional oral motor skills and tolerance with thin liquid patient should tolerate pills - unless cognitive status interferes.
Thin liquids as part of clear liquids per GI. Upright with intake. Pills as tolerated.�On chopped
NAYLA was performed and no obvious source for thrombus.
Echo 11/13/2023-normal biventricular size and systolic function.� Ejection fraction 55 to 60%.� Mild concentric LVH.� Arctic sclerosis without stenosis.� Trivial evaluation with fibrinous organization
Carotid Ultrasound:. Calcified plaque seen at left carotid bulb and proximal internal carotid artery, mixed plaque seen at the right carotid bulb and proximal right internal carotid artery. Velocity profiles consistent with less than 50% bilateral
internal carotid artery stenosis. Antegrade flow bilateral vertebral arteries.
Past Medical History: DM-II, obesity, CKD3, CHF, and diverticular disease, COPD,HTN, Morbid Obesity, Gout, GERD/PUD
Procedure History: Bilateral cataract surgery
Family History:�������������
Social History:
Functional Level Premorbidly: Independent with all activities
Functional Level at Previous Facility: Bed mobility max assist, max assist x 2 for trunk, lower extremity management due to profound weakness, difficulty with coordinating movements., Transfer�mod assist for lifting, weight shifting assistance.
Ambulates approximately 8 steps along edge of bed for repositioning, mod assist x 2 with rolling walker. 3 feet around the room.
Tobacco:Former Smoker
Alcohol: Denies
Drug use: Denies
Lives With: in apartment Alone
24-hour assistance available:
Number of floors: 1
# steps to enter:
# steps to second floor:
Potential First Floor Set Up: yes
Driving: yes, less during the winter
Occupation: Retired
Allergies:
Allergy/AdvReac Type Severity Reaction Status Date / Time
Penicillins Allergy Hives Verified 11/09/23 21:16
Review of Systems:
Constitutional: (x)fatigue
Eye: (x) Normal _
Ear/Nose/Throat: (x) Normal _
Respiratory: (x) Normal _
Cardiovascular: (x) Normal _
Gastrointestinal: (x)Peptic ulcer disease, stomach upset
Genitourinary: (x) hydronephrosis, pelvis mass, chronic diarrhea, UTI
Musculoskeletal: (x) LBP
Integumentary: (x) Normal _
Neurologic: (x) cva, encephalopathy, confused
Psychiatric: (x) Normal _
Endocrine: (x) thyroid mass
Hematologic/Lymphatic: (x) Normal _
Allergic/Immunologic: (x) Normal _
Medications:
Active Current Visit Medication List
Category Date Time Status
Acetaminophen [Tylenol] Med 11/14/23 10:33 Active
1,000 mg PO Q6HPRN PRN
Albuterol [ProAIR HFA INHALER] Med 11/10/23 09:54 Active
2 puff INH R Q4 PRN
Allopurinol [Zyloprim] Med 11/10/23 10:00 Active
300 mg PO DAILY
Aspirin Chewable [Low Strength Aspirin] Med 11/14/23 09:00 Active
81 mg PO DAILY
Atorvastatin [Lipitor] Med 11/12/23 18:00 Active
80 mg PO QPM
Carvedilol [Coreg] Med 11/10/23 10:00 Active
12.5 mg PO BID
Dextrose 50%-Water [Dextrose 50% Syringe] Med 11/09/23 22:44 Active
12.5 grams IV [id number] PRN
Flush (0.9% Sodium Chloride) [Flush (Nss)] Med 11/09/23 23:00 Active
See Dose Instructions IV PER PROTOCOL
Glucagon [GlucaGen] Med 11/09/23 22:44 Active
1 mg IM PRN PRN
Ipratropium/Albuterol Sulfate [Duoneb] Med 11/09/23 22:44 Active
3 ml INH R Q4HPRN PRN
Labetalol HCl [Trandate] Med 11/10/23 19:51 Active
10 mg IV Q6HPRN PRN
Lidocaine [Lidocaine 4% Patch] Med 11/10/23 10:00 Active
1 patch TOPICAL DAILY
Lidocaine [Lidocaine 4% Patch] Med 11/14/23 10:45 Active
1 patch TOPICAL DAILY
Losartan [Cozaar] Med 11/14/23 20:00 Active
100 mg PO BID
Meropenem [Merrem] Med 11/14/23 10:00 Active
500 mg IV Q6H
Miconazole Nitrate [Desenex/Mitrazol/Zeasorb] Med 11/13/23 08:00 Active
See Dose Instructions TOPICAL BID
NIFEdipine EXTENDED RELEASE [Procardia Xl (Extended Med 11/14/23 20:00 Active
Release)]
30 mg PO BID
Pantoprazole [Protonix] Med 11/14/23 08:00 Active
40 mg PO DAILY
Prochlorperazine [Compazine] Med 11/09/23 22:44 Active
5 mg IV Q6HPRN PRN
Remove Patch [Remove Lidocaine Patch] Med 11/10/23 20:00 Active
See Dose Instructions REMOVE DAILY@1999
Saccharomyces Boulardii [Florastor] Med 11/13/23 20:00 Active
250 mg PO BID
Sterile Water [Sterile Water For Injection] Med 11/14/23 10:00 Active
10 ml IV Q6H
Tiotropium [place] 2.5 Mcg [Spiriva Respimat 2.5 Mcg] Med 11/10/23 10:00 Active
2 puff INH R DAILY
Vitals:
Temp Pulse Resp BP Pulse Ox
97.9 F 85 16 152/69 96
11/15/23 03:27 11/15/23 08:02 11/15/23 08:02 11/15/23 03:27 11/15/23 08:02
Height 5 ft 5 in
Actual Weight 120.344 kg
Body Mass Index (BMI) 44.1
Physical Exam:
General Appearance/Observation: Well-developed, morbid individual in no apparent distress.
Pain/Comfort Assessment: Low back pain, buttocks
Mood/Affect: sleepy
Integumentary/Operative Site:
�� Pressure Ulcer evaluation: absent over heels
��
�� Other Type of Wound: ecchymosis
�
Eyes: Conjunctiva/Lids: normal ��� Pupils: pupils equal round and reactive to light and Accommodation
Ears/Nose/Throat: oral mucosa a little dry,� throat clear.������������ Lips/Teeth/Gums: normal
Neck: No muscle spasm or tenderness
Cardiovascular: Heart: regular, no murmur
Pulses: dorsalis pedis 1+ bilaterally
Respiratory: Respiratory Effort/Chest Expansion: normal.������ Auscultation: Clear to auscultation bilaterally
Gastrointestinal: abdomen not tender, no distension,obese, normal abdominal bowel sounds
Genitourinary: No Hilario
Rectal Exam: Rectal tube- removed
Extremities: Edema: None Cyanosis: None Trophic changes: None
Neurology Exam:
Orientation: Alert, Oriented to self, Place, not time, month, date
Memory: impaired
Repetition: impaired
Comprehension: slow to process, sleepy
Two step command: slow to process
Naming: Intact
Cranial Nerves:
�� CNII: Pupillary light reflex: Intact��� Visual Field:
�� CN III, IV, : Extraocular muscles: Intact
�� CN V: Facial Sensation at Forehead: Intact , Maxilla: Intact, Mandible: Intact
�� CN VII: Facial movement: slight asymmetric
�� CN VIII: Hearing: Normal
�� CN IX/X: Speech & swallow: low volume, Position of Uvula: Midline
�� CN XI: Shoulder shrug: Symmetric
�� CN XII: Tongue protrusion: Midline
Sensory:
�� Light touch: Intact in bilateral upper and lower extremities
��
Reflexes:
�� Biceps: absent bilaterally
�� Brachioradialis: absent bilaterally
�� Triceps: absent bilaterally
�� Patellar: absent bilaterally
�� Achilles: absent bilaterally
�� Babinski: Downgoing bilaterally
�� Clonus: None
�� Mary: Negative bilaterally
Cerebellar: Dysmetria/Ataxia: impaired bilaterally with nose to finger coordination
Musculoskeletal:
Motor: (Manual muscle scale 0-5)
Muscle SA EF WE EE FF FA HF KE DF EHL PF
Right� 4 4 3 4 4 4 4 4 4 5 5
Left 4 4 3 4 4 4 3 3 4 4 4
Tone: Normal in all extremities
Range of Motion: Passively within normal limits in all extremities, except legs due to body habitus
Lab Results:
Labs
WBC 8.0 10^3/uL (4.8-10.8) 11/13/23 08:14
RBC 4.15 10^6/uL (4.20-5.40) L 11/13/23 08:14
Hgb 13.0 g/dL (12.0-16.0) 11/13/23 08:14
Hct 38.5 % (37.0-47.0) 11/13/23 08:14
MCV 92.8 fL (81.0-99.0) 11/13/23 08:14
MCH 31.3 pg (27.0-31.0) H 11/13/23 08:14
MCHC 33.8 g/dL (33.0-37.0) 11/13/23 08:14
RDW 13.7 % (11.5-14.5) 11/13/23 08:14
Plt Count 206 10^3/uL (130-400) 11/13/23 08:14
MPV 10.3 fL (7.4-10.4) 11/13/23 08:14
Abs Immat Gran (auto) 0.1 10^3/uL (0-0.05) H 03/14/24 19:27
Absolute Neuts (auto) 11.2 10^3/uL (1.4-6.5) H 11/09/23 19:27
Absolute Lymphs (auto) 0.6 10^3/uL (1.2-3.4) L 11/09/23 19:27
Absolute Monos (auto) 0.5 10^3/uL (0.1-0.6) 11/09/23 19:
Absolute Eos (auto) 0.0 10^3/uL (0-0.7) 11/09/23 19:
Absolute Basos (auto) 0.0 10^3/uL (0-0.2) 11/09/23 19:
Immature Gran % 0.4 % (0-0.5) 11/09/23 19:
Neutrophils % 90.2 % (42.2-75.2) H 11/09/23 19:
Lymphocytes % 5.0 % (20.5-51.1) L 11/09/23 19:27
Monocytes % 4.0 % (1.7-9.3) 11/09/23 19:
Eosinophils % 0.2 % (0-6) 11/09/23 19:
Basophils % 0.2 % (0-2) 11/09/23 19:
Nucleated RBC % 0 % 11/09/23 19:
PT 12.8 Sec (11.4-14.6) 11/09/23 20:14
INR 0.96 11/09/23 20:14
APTT 31.3 Sec (23.4-35.0) 11/09/23 20:14
Sodium 141 mmol/L (135-145) 11/14/23 07:50
Potassium 3.0 mmol/L (3.5-5.1) L 11/14/23 07:50
Chloride 101 mmol/L (98-107) 11/14/23 07:50
Carbon Dioxide 31 mmol/L (22-30) H 11/14/23 07:50
BUN 18 mg/dl (7-17) H 11/14/23 07:50
Creatinine 0.9 mg/dL (0.6-1.0) 11/14/23 07:50
Estimated Creat Clear 71 ml/min 11/14/23 07:50
eGFR > 60.00 11/14/23 07:50
Glucose 102 mg/dl (70-99) H 11/14/23 07:50
Hemoglobin A1c 5.5 % (4.0-5.6) 11/10/23 03:55
Lactic Acid 1.7 mmol/L (0.7-2.0) 11/10/23 03:55
Calcium 9.5 mg/dl (8.4-10.2) 11/14/23 07:50
Phosphorus 4.3 mg/dl (2.5-4.5) 11/10/23 03:55
Magnesium 2.1 mg/dl (1.6-2.3) 11/14/23 07:50
Iron Cancelled 11/09/23 22:44
TIBC Cancelled 11/09/23 22:44
% Saturation Cancelled 11/09/23 22:44
Total Bilirubin 1.3 mg/dl (0.2-1.3) 11/13/23 08:14
Direct Bilirubin 0.2 mg/dl (0.0-0.4) 11/10/23 03:55
AST 43 U/L (14-36) H 11/13/23 08:14
ALT 34 U/L (0-35) 11/13/23 08:14
Alkaline Phosphatase 97 U/L (38-126) 11/13/23 08:14
Ammonia < 9 umol/L (9-30) L 11/13/23 08:14
Creatine Kinase 504 U/L (30-135) H 11/10/23 03:55
Total Protein 5.9 g/dl (6.3-8.2) L 11/13/23 08:14
Albumin 3.1 g/dl (3.5-5.0) L 11/13/23 08:14
Triglycerides 97 mg/dl (10-149) 11/12/23 03:27
Total Cholesterol 147 mg/dl (50-199) 11/12/23 03:27
LDL Cholesterol, Calc 89 mg/dl 11/12/23 03:27
VLDL Cholesterol, Calc 19 mg/dl (0-30) 11/12/23 03:27
HDL Cholesterol 39 mg/dl 11/12/23 03:27
Lipase 55 U/L (23-300) 11/09/23 19:27
Vitamin B12 791 pg/ml (239-931) 11/10/23 01:30
TSH (Reflex) 1.28 uIU/ml (0.47-4.68) 11/13/23 08:14
Random Cortisol 45.0 ug/dl 11/10/23 15:26
Urine Color Yellow 11/11/23 14:49
Urine Clarity Clear (Clear) 11/11/23 14:49
Urine pH 5.0 (5.0-9.0) 11/11/23 14:49
Ur Specific [place] 1.015 (<1.030) 11/11/23 14:49
Urine Ketones Negative (Negative) 11/11/23 14:49
Urine Occult Blood 2+ (Negative) A 11/09/23 21:28
Ur Occult Blood Reflex Trace (Negative) A 11/11/23 14:49
Urine Nitrite Negative (Negative) 11/09/23 21:28
Urine Nitrite (Reflex) Negative (Negative) 11/11/23 14:49
Urine Bilirubin Negative (Negative) 11/11/23 14:49
Urine Urobilinogen Negative (Neg - 1+) 11/11/23 14:49
Ur Leukocyte Esterase Negative (Negative) 11/09/23 21:28
Leukocyte Esterase Rfl 1+ (Negative) A 11/11/23 14:49
Urine RBC 0-2 /HPF (0-2) 11/11/23 14:49
Urine WBC 3-5 /HPF (0-5) 11/09/23 21:28
Urine WBC (Reflex) 26-30 /HPF (0-5) A 11/11/23 14:49
Ur Squamous Epith Cells 0-2 /LPF (Few) 11/11/23 14:49
Urine Bacteria Few (Negative) A 11/09/23 21:28
Urine Bacteria (Reflex) Many (Negative) A 11/11/23 14:49
Urine Mucus Moderate 11/10/23 12:09
Urine Glucose Negative (Negative) 11/11/23 14:49
Urine Albumin 1+ (Neg - Trace) A 11/09/23 21:28
Urine Albumin (Reflex) Trace (Neg - Trace) 11/11/23 14:49
Urine Opiates Screen Negative (Negative) 11/09/23 21:28
Ur Buprenorphine Negative (Negative) 11/09/23 21:28
Ur Oxycodone Screen Negative (Negative) 11/09/23 21:28
Urine Methadone Screen Negative (Negative) 11/09/23 21:28
Ur Barbiturates Screen Negative (Negative) 11/09/23 21:28
Ur Tricyclics Screen Negative (Negative) 11/09/23 21:28
Ur Phencyclidine Scrn Negative (Negative) 11/09/23 21:28
Ur Amphetamines Screen Negative (Negative) 11/09/23 21:28
U Methamphetamines Scrn Negative (Negative) 11/09/23 21:28
U Benzodiazepines Scrn Negative (Negative) 11/09/23 21:28
Urine Cocaine Screen Negative (Negative) 11/09/23 21:28
U Marijuana (THC) Screen Negative (Negative) 11/09/23 21:28
Alcohol, Quantitative None detected mg/dl 11/09/23 21:06
POC Glucose 88 mg/dl (70-99) 11/13/23 11:54
Blood Type A POS 11/09/23 19:27
Blood Type Confirm A POS 11/09/23 21:06
Antibody Screen Negative (Negative) 11/09/23 19:27
Diagnostic Results: As per HPI
Assessment 73y F with PMH significant for (DM-II, obesity, CKD3, CHF, COPD, and diverticular disease) presented to [facility] ED after being found down at home by her sister covered in copious, black vomitus. Currently resolved and on PPI. CVA due
to Several (approximately 15) scattered tiny acute/subacute infarcts throughout the bilateral cerebral hemispheres as described, one of which in the left parietal lobe has a small amount of associated hemosiderin deposition/blood .Chronic diarrhea
of unknown etiology. UTI on IV antibiotics with right hydronephrosis.
Plan
CVA:NAYLA was performed and no obvious source for thrombus.� Secondary prophylaxis with aspirin, statin, and blood pressure control (SBP less than 180 and diastolic less than 100 to participate with therapy for ischemic stroke). Continue to monitor
neurologic status. Per neurosurgery-likely left parietal hyperdensity is hemorrhagic conversion of such foci? Ok to resume ASA if needed. Would advise, if possible to hold on therapeutic anticoagulation for 1 week from time of presentation.
11/16/2023. Blood cx negative.
Dysphagia: speech evaluation, oral care protocol, aspiration precautions.� Advance diet as tolerated. Chopped
Dysarthria: speech evaluation
Confusion: �Syphilis serology negative
Chronic Diarrhea: since July 08, 2023. C. diff neg.� O+P neg. Never colonoscopy
Left thyroid mass:- Outpatient workup
UTI/Right obstructive uropathy, possibly extrinsic compression from pelvic mass
11/08 and 11/09 UA bland.�
�11/10 UA 1+LE, 26-30WBC, Ucx 100K � ESBL-Ecoli.� CT: no renal perinephric stranding
�Per Urology, to OR 11/16 for decompressed prior to discharge as pt would have likelihood with UTI or re-admit sepsis tentative plan for OR monday for diagnostic cysto/retrograde and attempt and ureteroscopy/bx and stent- if was
unsuccessful- would need to reconsult IR for percutaneous placement which would be difficult due to pt's size.
Continue meropenem 500mg Iv q 6 hrs. Normal renal function. No right renal colic
HTN: carvedilol 12.5 bid, losartan 100 mg twice daily, nifedipine extended release 30 mg twice daily, spironolactone 25 mg daily monitor closely
HLD: Atorvastatin 80 mg
Coronary artery disease : Aspirin, statin, beta-sally
DM II: Accu-Cheks, insulin sliding scale, metformin, aspart, lantus.
COPD:Stable without sob. DuoNeb 3 mL every 4 hours as needed, ProAir inhaler 2 puffs every 4 hours as needed, Spiriva
Coffee ground emesis- resolved. continue PPI
Gout. Allopurinol 300mg daily
Psych: Psychology consult.� Monitor mood, adjust medications as needed.
Skin: monitor for pressure sores/rashes/lesions.
FEN: see dysphagia
Pain: acetaminophen or Lidoderm patch
Bowel/Diarrhea: Imodium as needed. Hydration. Colonoscopy?
Bladder: Time void, PVRs, PRN straight cath.
GI Prophylaxis: Pantoprazole
DVT Prophylaxis: mechanical , ASA 81mg. per neurosurgery hold off anticoag until 11/16/23?
Pulmonary: Incentive spirometry
Morbid obesity: Continue to personnel counselor patient about diet adjustments to control obesity. Body habitus and increased force to move body and extremities causes further difficulty with functional tasks.
Safety: Continue to reinforce assistance with all transfers.
Code Status:�DNR
Dispo (date/plan/equipment needs): Home with family care.
Functional and Medical Goals: Modified Independent with ADL�s, ambulation, transfers
Summary of recommendations:
- Discharge Destination: Acute Inpatient Rehabilitation due to multiple ongoing, unresolved medical conditions may not be the best option at this time as patient may not be able to tolerate 3 hours of intense therapy. Once medically stable, she can
be reassessed to determine if subacute versus acute inpatient rehabilitation may be appropriate.
CVA:NAYLA was performed and no obvious source for thrombus.� Secondary prophylaxis with aspirin, statin, and blood pressure control (SBP less than 180 and diastolic less than 100 to participate with therapy for ischemic stroke). Continue to monitor
neurologic status. Per neurosurgery-likely left parietal hyperdensity is hemorrhagic conversion of such foci? Ok to resume ASA if needed. Would advise, if possible to hold on therapeutic anticoagulation for 1 week from time of presentation.
11/16/2023. Blood cx negative.
UTI/Right obstructive uropathy, possibly extrinsic compression from pelvic mass
11/08 and 11/09 UA bland.�
�11/10 UA 1+LE, 26-30WBC, Ucx 100K � ESBL-Ecoli.� CT: no renal perinephric stranding
�Per Urology, to OR 11/16 for decompressed prior to discharge as pt would have likelihood with UTI or re-admit sepsis tentative plan for OR monday for diagnostic cysto/retrograde and attempt and ureteroscopy/bx and stent-if was unsuccessful- would
need to reconsult IR for percutaneous placement which would be difficult due to pt's size.
Continue meropenem 500mg Iv q 6 hrs. Normal renal function. No right renal colic.
Low back. buttocks Pain: acetaminophen or Lidoderm patch. Roho cushion, repositioning in bed
Chronic Diarrhea: since July 08, 2023. C. diff neg.� O+P neg. Colonoscopy to be done?. Per patient's son- Has been off Metformin for the past 1.5 month and still with diarrhea. Has been taking imodium at home. Etiology?
Coffee ground emesis- No EGD. resolved. Hgb trending down - 15.3 to 12.4. H&H - low.Continue PPI. Follow and repeat CBC, iron
Bladder: Time void, PVRs, PRN straight cath.
GI Prophylaxis: Pantoprazole
DVT Prophylaxis: mechanical , ASA 81mg. per neurosurgery hold off anticoagulation
Pulmonary: Incentive spirometry
Morbid obesity: Continue to personnel counselor patient about diet adjustments to control obesity. Body habitus and increased force to move body and extremities causes further difficulty with functional tasks.
Safety: Continue to reinforce assistance with all transfers.
Thank you for allowing me to care for your patient. Please contact me with any questions or concerns.
This note was dictated using a voice recognition system. Please excuse any typographical errors from shellfish grower. If you believe there are any discrepancies, please notify our office.

Documented by User: Miquel Cortez MD 11/16/23 22:02
Consultation - Medical
-
Referring: Dr. Babatunde Ricci
Chief Complaint: CVA
�
History of Present Illness: 73y F with PMH significant for (DM-II, obesity, CKD3, CHF, COPD, and diverticular disease) presented to [facility] ED after being found down at home by her sister covered in copious, black vomitus.�Per son, pt was started
on metformin in 06/2023. Afterwards she developed persistent diarrhea and confusion.� She forgot to pay her rent and son has to take over finances.� Metformin was discontinued on 07/2023.� However, pt with persistent diarrhea and confusion.� Patient
could not recall events surrounding recent N/V.� In hospital, UA neg, blood cx neg, C. diff neg. � CT abdomen/pelvis showed new severe right hydronephrosis with 8mm nodular enhancement. Brain MRI showed multiple acute/subacute small infarct
concerning for embolic CVA. �MRA neck 4cm mass on left lobe thyroid. Per urology, kidney needs to be decompressed prior to discharge as pt would have likelihood with UTI or re-admit sepsis tentative plan for OR TOMORROW for diagnostic
cysto/retrograde and attempt and ureteroscopy/bx and stent- if this was unsuccessful- would need to reconsult IR for percutaneous placement which would be difficult due to pt's size.
Per patient's son, Mom has been off the metformin for about a month and a half and continues to suffer from chronic diarrhea of unknown etiology. She has been chronically taking Imodium at home. Patient is complaining of sour stomach and not
feeling her best. Not much of appetite.
11/09/23 CT � New severe right hydronephrosis and hydroureter with an abrupt transition at the level of the mid ureter where there is an 8 mm nodular focus of enhancement, raising concern for a ureteral neoplasm. Increased size of a simple appearing
cystic lesion in the right adnexa, now measuring up to 5.6 cm.
11/11/23 Brain MRI: Several (approximately 15) scattered tiny acute/subacute infarcts throughout the bilateral cerebral hemispheres as described, one of which in the left parietal lobe has a small amount of associated hemosiderin deposition/blood
products, corresponding with CT findings. Findings may be of embolic etiology. No definite dural venous sinus thrombosis/stenosis identified. No overt focal hemodynamically significant stenosis, aneurysm or occlusion.
Speech- No gross signs of aspiration with thin liquid trials. Patient agitated and refused meds pass. Given functional oral motor skills and tolerance with thin liquid patient should tolerate pills - unless cognitive status interferes.
Thin liquids as part of clear liquids per GI. Upright with intake. Pills as tolerated.�On chopped
NAYLA was performed and no obvious source for thrombus.
Echo 11/13/2023-normal biventricular size and systolic function.� Ejection fraction 55 to 60%.� Mild concentric LVH.� Arctic sclerosis without stenosis.� Trivial evaluation with fibrinous organization
Carotid Ultrasound:. Calcified plaque seen at left carotid bulb and proximal internal carotid artery, mixed plaque seen at the right carotid bulb and proximal right internal carotid artery. Velocity profiles consistent with less than 50% bilateral
internal carotid artery stenosis. Antegrade flow bilateral vertebral arteries.
Past Medical History: DM-II, obesity, CKD3, CHF, and diverticular disease, COPD,HTN, Morbid Obesity, Gout, GERD/PUD
Procedure History: Bilateral cataract surgery
Family History:��Father: Lung Cancer � � Sister: Lung Cancer�����������
Social History:
Functional Level Premorbidly: Independent with all activities
Functional Level at Previous Facility: Bed mobility max assist, max assist x 2 for trunk, lower extremity management due to profound weakness, difficulty with coordinating movements., Transfer�mod assist for lifting, weight shifting assistance.
Ambulates approximately 8 steps along edge of bed for repositioning, mod assist x 2 with rolling walker. 3 feet around the room.
Tobacco:Former Smoker - Quit smoking 12 years ago.� Approx 40 pack years total use.
Alcohol: Denies
Drug use: Denies
Lives With: in apartment Alone
24-hour assistance available: No
Number of floors: 1
# steps to enter: 0
Driving: yes, less during the winter
Occupation: Retired
Allergies:
Allergy/AdvReac Type Severity Reaction Status Date / Time
Penicillins Allergy Hives Verified 11/09/23 21:16
Review of Systems:
Constitutional: (x) fatigue
Eye: (x) Normal _
Ear/Nose/Throat: (x) Normal _
Respiratory: (x) Normal _
Cardiovascular: (x) Normal _
Gastrointestinal: (x)Peptic ulcer disease, stomach upset
Genitourinary: (x) hydronephrosis, pelvis mass, chronic diarrhea, UTI
Musculoskeletal: (x) LBP
Integumentary: (x) Normal _
Neurologic: (x) cva, encephalopathy, confused
Psychiatric: (x) Normal _
Endocrine: (x) thyroid mass
Hematologic/Lymphatic: (x) Normal _
Allergic/Immunologic: (x) Normal _
Medications:
Active Current Visit Medication List
Category Date Time Status
Acetaminophen [Tylenol] Med 11/14/23 10:33 Active
1,000 mg PO Q6HPRN PRN
Albuterol [ProAIR HFA INHALER] Med 11/10/23 09:54 Active
2 puff INH R Q4 PRN
Allopurinol [Zyloprim] Med 11/10/23 10:00 Active
300 mg PO DAILY
Aspirin Chewable [Low Strength Aspirin] Med 11/14/23 09:00 Active
81 mg PO DAILY
Atorvastatin [Lipitor] Med 11/12/23 18:00 Active
80 mg PO QPM
Carvedilol [Coreg] Med 11/10/23 10:00 Active
12.5 mg PO BID
Dextrose 50%-Water [Dextrose 50% Syringe] Med 11/09/23 22:44 Active
12.5 grams IV [id number] PRN
Flush (0.9% Sodium Chloride) [Flush (Nss)] Med 11/09/23 23:00 Active
See Dose Instructions IV PER PROTOCOL
Glucagon [GlucaGen] Med 11/09/23 22:44 Active
1 mg IM PRN PRN
Ipratropium/Albuterol Sulfate [Duoneb] Med 11/09/23 22:44 Active
3 ml INH R Q4HPRN PRN
Labetalol HCl [Trandate] Med 11/10/23 19:51 Active
10 mg IV Q6HPRN PRN
Lidocaine [Lidocaine 4% Patch] Med 11/10/23 10:00 Active
1 patch TOPICAL DAILY
Lidocaine [Lidocaine 4% Patch] Med 11/14/23 10:45 Active
1 patch TOPICAL DAILY
Losartan [Cozaar] Med 11/14/23 20:00 Active
100 mg PO BID
Meropenem [Merrem] Med 11/14/23 10:00 Active
500 mg IV Q6H
Miconazole Nitrate [Desenex/Mitrazol/Zeasorb] Med 11/13/23 08:00 Active
See Dose Instructions TOPICAL BID
NIFEdipine EXTENDED RELEASE [Procardia Xl (Extended Med 11/14/23 20:00 Active
Release)]
30 mg PO BID
Pantoprazole [Protonix] Med 11/14/23 08:00 Active
40 mg PO DAILY
Prochlorperazine [Compazine] Med 11/09/23 22:44 Active
5 mg IV Q6HPRN PRN
Remove Patch [Remove Lidocaine Patch] Med 11/10/23 20:00 Active
See Dose Instructions REMOVE DAILY@1999
Saccharomyces Boulardii [Florastor] Med 11/13/23 20:00 Active
250 mg PO BID
Sterile Water [Sterile Water For Injection] Med 11/14/23 10:00 Active
10 ml IV Q6H
Tiotropium [place] 2.5 Mcg [Spiriva Respimat 2.5 Mcg] Med 11/10/23 10:00 Active
2 puff INH R DAILY
Vitals:
Temp Pulse Resp BP Pulse Ox
97.9 F 85 16 152/69 96
11/15/23 03:27 11/15/23 08:02 11/15/23 08:02 11/15/23 03:27 11/15/23 08:02
Height 5 ft 5 in
Actual Weight 120.344 kg
Body Mass Index (BMI) 44.1
Physical Exam:
General Appearance/Observation: Well-developed, morbidly obese female in no apparent distress.
Pain/Comfort Assessment: Low back pain, buttocks
Mood/Affect: sleepy
Integumentary/Operative Site:
�� Pressure Ulcer evaluation: absent over heels
�� Other Type of Wound: ecchymosis
�
Eyes: Conjunctiva/Lids: normal ��� Pupils: pupils equal round and reactive to light and Accommodation
Ears/Nose/Throat: oral mucosa a little dry,� throat clear.������������ Lips/Teeth/Gums: normal
Neck: No muscle spasm or tenderness
Cardiovascular: Heart: regular, no murmur
Pulses: dorsalis pedis 1+ bilaterally
Respiratory: Respiratory Effort/Chest Expansion: normal.������ Auscultation: Clear to auscultation bilaterally
Gastrointestinal: abdomen not tender, no distension,obese, normal abdominal bowel sounds
Genitourinary: No Hilario
Rectal Exam: Rectal tube- removed
Extremities: Edema: None Cyanosis: None Trophic changes: None
Neurology Exam:
Orientation: Alert, Oriented to self, Place, not time, month, date
Memory: impaired
Repetition: impaired
Comprehension: slow to process, sleepy
Two step command: slow to process
Naming: Intact
Cranial Nerves:
�� CNII: Pupillary light reflex: Intact��� Visual Field:
�� CN III, IV, : Extraocular muscles: Intact
�� CN V: Facial Sensation at Forehead: Intact , Maxilla: Intact, Mandible: Intact
�� CN VII: Facial movement: slight asymmetric
�� CN VIII: Hearing: Normal
�� CN IX/X: Speech & swallow: low volume, Position of Uvula: Midline
�� CN XI: Shoulder shrug: Symmetric
�� CN XII: Tongue protrusion: Midline
Sensory:
�� Light touch: Intact in bilateral upper and lower extremities
��
Reflexes:
�� Biceps: absent bilaterally
�� Brachioradialis: absent bilaterally
�� Triceps: absent bilaterally
�� Patellar: absent bilaterally
�� Achilles: absent bilaterally
�� Babinski: Downgoing bilaterally
�� Clonus: None
�� Mary: Negative bilaterally
Cerebellar: Dysmetria/Ataxia: impaired bilaterally with nose to finger coordination
Musculoskeletal: Motor: (Manual muscle scale 0-5)
Muscle SA EF WE EE FF FA HF KE DF EHL PF
Right� 4 4 3 4 4 4 4 4 4 5 5
Left 4 4 3 4 4 4 3 3 4 4 4
Tone: Normal in all extremities
Range of Motion: Passively within normal limits in all extremities, except legs due to body habitus
Lab Results:
Labs
WBC 8.0 10^3/uL (4.8-10.8) 11/13/23 08:14
RBC 4.15 10^6/uL (4.20-5.40) L 11/13/23 08:14
Hgb 13.0 g/dL (12.0-16.0) 11/13/23 08:14
Hct 38.5 % (37.0-47.0) 11/13/23 08:14
MCV 92.8 fL (81.0-99.0) 11/13/23 08:14
MCH 31.3 pg (27.0-31.0) H 11/13/23 08:14
MCHC 33.8 g/dL (33.0-37.0) 11/13/23 08:14
RDW 13.7 % (11.5-14.5) 11/13/23 08:14
Plt Count 206 10^3/uL (130-400) 11/13/23 08:14
MPV 10.3 fL (7.4-10.4) 11/13/23 08:14
Abs Immat Gran (auto) 0.1 10^3/uL (0-0.05) H 11/09/23 19:
Absolute Neuts (auto) 11.2 10^3/uL (1.4-6.5) H 11/09/23 19:27
Absolute Lymphs (auto) 0.6 10^3/uL (1.2-3.4) L 11/09/23:
Absolute Monos (auto) 0.5 10^3/uL (0.1-0.6) 11/09/23:
Absolute Eos (auto) 0.0 10^3/uL (0-0.7) 11/09/23:
Absolute Basos (auto) 0.0 10^3/uL (0-0.2) 11/09/23:
Immature Gran % 0.4 % (0-0.5) 11/09/23:
Neutrophils % 90.2 % (42.2-75.2) H 11/09/23:
Lymphocytes % 5.0 % (20.5-51.1) L 11/09/23:
Monocytes % 4.0 % (1.7-9.3) 11/09/23:
Eosinophils % 0.2 % (0-6) 11/09/23:
Basophils % 0.2 % (0-2) 11/09/23:
Nucleated RBC % 0 % 11/09/23:
PT 12.8 Sec (11.4-14.6) 11/09/23 20:14
INR 0.96 11/09/23 20:14
APTT 31.3 Sec (23.4-35.0) 11/09/23 20:14
Sodium 141 mmol/L (135-145) 11/14/23 07:50
Potassium 3.0 mmol/L (3.5-5.1) L 11/14/23 07:50
Chloride 101 mmol/L (98-107) 11/14/23 07:50
Carbon Dioxide 31 mmol/L (22-30) H 11/14/23 07:50
BUN 18 mg/dl (7-17) H 11/14/23 07:50
Creatinine 0.9 mg/dL (0.6-1.0) 11/14/23 07:50
Estimated Creat Clear 71 ml/min 11/14/23 07:50
eGFR > 60.00 11/14/23 07:50
Glucose 102 mg/dl (70-99) H 11/14/23 07:50
Hemoglobin A1c 5.5 % (4.0-5.6) 11/10/23 03:55
Lactic Acid 1.7 mmol/L (0.7-2.0) 11/10/23 03:55
Calcium 9.5 mg/dl (8.4-10.2) 11/14/23 07:50
Phosphorus 4.3 mg/dl (2.5-4.5) 11/10/23 03:55
Magnesium 2.1 mg/dl (1.6-2.3) 11/14/23 07:50
Iron Cancelled 11/09/23 22:44
TIBC Cancelled 11/09/23 22:44
% Saturation Cancelled 11/09/23 22:44
Total Bilirubin 1.3 mg/dl (0.2-1.3) 11/13/23 08:14
Direct Bilirubin 0.2 mg/dl (0.0-0.4) 11/10/23 03:55
AST 43 U/L (14-36) H 11/13/23 08:14
ALT 34 U/L (0-35) 11/13/23 08:14
Alkaline Phosphatase 97 U/L (38-126) 11/13/23 08:14
Ammonia < 9 umol/L (9-30) L 11/13/23 08:14
Creatine Kinase 504 U/L (30-135) H 11/10/23 03:55
Total Protein 5.9 g/dl (6.3-8.2) L 11/13/23 08:14
Albumin 3.1 g/dl (3.5-5.0) L 11/13/23 08:14
Triglycerides 97 mg/dl (10-149) 11/12/23 03:27
Total Cholesterol 147 mg/dl (50-199) 11/12/23 03:27
LDL Cholesterol, Calc 89 mg/dl 11/12/23 03:27
VLDL Cholesterol, Calc 19 mg/dl (0-30) 11/12/23 03:27
HDL Cholesterol 39 mg/dl 11/12/23 03:27
Lipase 55 U/L (23-300) 11/09/23 19:27
Vitamin B12 791 pg/ml (239-931) 11/10/23 01:30
TSH (Reflex) 1.28 uIU/ml (0.47-4.68) 11/13/23 08:14
Random Cortisol 45.0 ug/dl 11/10/23 15:26
Urine Color Yellow 11/11/23 14:49
Urine Clarity Clear (Clear) 11/11/23 14:49
Urine pH 5.0 (5.0-9.0) 11/11/23 14:49
Ur Specific [place] 1.015 (<1.030) 11/11/23 14:49
Urine Ketones Negative (Negative) 11/11/23 14:49
Urine Occult Blood 2+ (Negative) A 11/09/23 21:28
Ur Occult Blood Reflex Trace (Negative) A 11/11/23 14:49
Urine Nitrite Negative (Negative) 11/09/23 21:28
Urine Nitrite (Reflex) Negative (Negative) 11/11/23 14:49
Urine Bilirubin Negative (Negative) 11/11/23 14:49
Urine Urobilinogen Negative (Neg - 1+) 11/11/23 14:49
Ur Leukocyte Esterase Negative (Negative) 11/09/23 21:28
Leukocyte Esterase Rfl 1+ (Negative) A 11/11/23 14:49
Urine RBC 0-2 /HPF (0-2) 11/11/23 14:49
Urine WBC 3-5 /HPF (0-5) 11/09/23 21:28
Urine WBC (Reflex) 26-30 /HPF (0-5) A 11/11/23 14:49
Ur Squamous Epith Cells 0-2 /LPF (Few) 11/11/23 14:49
Urine Bacteria Few (Negative) A 11/09/23 21:28
Urine Bacteria (Reflex) Many (Negative) A 11/11/23 14:49
Urine Mucus Moderate 11/10/23 12:09
Urine Glucose Negative (Negative) 11/11/23 14:49
Urine Albumin 1+ (Neg - Trace) A 11/09/23 21:28
Urine Albumin (Reflex) Trace (Neg - Trace) 11/11/23 14:49
Urine Opiates Screen Negative (Negative) 11/09/23 21:28
Ur Buprenorphine Negative (Negative) 11/09/23 21:28
Ur Oxycodone Screen Negative (Negative) 11/09/23 21:28
Urine Methadone Screen Negative (Negative) 11/09/23 21:28
Ur Barbiturates Screen Negative (Negative) 11/09/23 21:28
Ur Tricyclics Screen Negative (Negative) 11/09/23 21:28
Ur Phencyclidine Scrn Negative (Negative) 11/09/23 21:28
Ur Amphetamines Screen Negative (Negative) 11/09/23 21:28
U Methamphetamines Scrn Negative (Negative) 11/09/23 21:28
U Benzodiazepines Scrn Negative (Negative) 11/09/23 21:28
Urine Cocaine Screen Negative (Negative) 11/09/23 21:28
U Marijuana (THC) Screen Negative (Negative) 11/09/23 21:28
Alcohol, Quantitative None detected mg/dl 11/09/23 21:06
POC Glucose 88 mg/dl (70-99) 11/13/23 11:54
Blood Type A POS 11/09/23 19:27
Blood Type Confirm A POS 11/09/23 21:06
Antibody Screen Negative (Negative) 11/09/23 19:27
Diagnostic Results: As per HPI
Assessment 73y F with PMH significant for (DM-II, obesity, CKD3, CHF, COPD, and diverticular disease) presented to [facility] ED after being found down at home by her sister covered in copious, black vomitus. Currently resolved and on PPI. CVA due
to Several (approximately 15) scattered tiny acute/subacute infarcts throughout the bilateral cerebral hemispheres as described, one of which in the left parietal lobe has a small amount of associated hemosiderin deposition/blood .Chronic diarrhea
of unknown etiology. UTI on IV antibiotics with right hydronephrosis.
Plan
CVA:NAYLA was performed and no obvious source for thrombus.� Secondary prophylaxis with aspirin, statin, and blood pressure control (SBP less than 180 and diastolic less than 100 to participate with therapy for ischemic stroke). Continue to monitor
neurologic status. Per neurosurgery-likely left parietal hyperdensity is hemorrhagic conversion of such foci? Ok to resume ASA if needed. Would advise, if possible to hold on therapeutic anticoagulation for 1 week from time of presentation.
11/16/2023. Blood cx negative.
Dysphagia: speech evaluation, oral care protocol, aspiration precautions.� Advance diet as tolerated. Chopped
Dysarthria: speech evaluation
Confusion: �Syphilis serology negative
Chronic Diarrhea: since July 08, 2023. C. diff neg.� O+P neg. Never colonoscopy
Left thyroid mass:- Outpatient workup
UTI/Right obstructive uropathy, possibly extrinsic compression from pelvic mass
- 11/08 and 11/09 UA bland.�
-11/10 UA 1+LE, 26-30WBC, Ucx 100K � ESBL-Ecoli.� CT: no renal perinephric stranding
-Had 11/15 cysto/right retrograde/right ureteroscopy/bx and fulguration/stent placement
-Continue meropenem 500mg Iv q 6 hrs. Normal renal function. No right renal colic
HTN: carvedilol 12.5 bid, losartan 100 mg twice daily, nifedipine extended release 30 mg twice daily, spironolactone 25 mg daily monitor closely
HLD: Atorvastatin 80 mg
Coronary artery disease : Aspirin, statin, beta-sally
DM II: Accu-Cheks, insulin sliding scale, metformin, aspart, lantus.
COPD:Stable without sob. DuoNeb 3 mL every 4 hours as needed, ProAir inhaler 2 puffs every 4 hours as needed, Spiriva
Coffee ground emesis- resolved. continue PPI
Gout. Allopurinol 300mg daily
Psych: Psychology consult.� Monitor mood, adjust medications as needed.
Skin: monitor for pressure sores/rashes/lesions.
FEN: see dysphagia
Pain: acetaminophen or Lidoderm patch
Bowel/Diarrhea: Imodium as needed. Hydration. Colonoscopy?
Bladder: Time void, PVRs, PRN straight cath.
GI Prophylaxis: Pantoprazole
DVT Prophylaxis: mechanical , ASA 81mg. per neurosurgery hold off anticoag until 11/16/23?
Pulmonary: Incentive spirometry
Morbid obesity: Continue to personnel counselor patient about diet adjustments to control obesity. Body habitus and increased force to move body and extremities causes further difficulty with functional tasks.
Safety: Continue to reinforce assistance with all transfers.
Code Status:�DNR
Dispo (date/plan/equipment needs): Home with family care.
Functional and Medical Goals: Modified Independent with ADL�s, ambulation, transfers
Attending Statement:
I saw and examined the patient today 11/16/23.� Reviewed care plan with patient, therapy, nursing, and physician assistant professor of religion.� I agree with the above subjective and physical exam, and plan as documented.
Summary of recommendations:
- Discharge Destination: Acute Inpatient Rehabilitation due to multiple ongoing, unresolved medical conditions may not be the best option at this time as patient may not be able to tolerate 3 hours of intense therapy. Once medically stable, she can
be reassessed to determine if subacute versus acute inpatient rehabilitation may be appropriate.
CVA:NAYLA was performed and no obvious source for thrombus.� Secondary prophylaxis with aspirin, statin, and blood pressure control (SBP less than 180 and diastolic less than 100 to participate with therapy for ischemic stroke). Continue to monitor
neurologic status. Per neurosurgery-likely left parietal hyperdensity is hemorrhagic conversion of such foci? Ok to resume ASA if needed. Would advise, if possible to hold on therapeutic anticoagulation for 1 week from time of presentation.
11/16/2023. Blood cx negative.
UTI/Right obstructive uropathy, possibly extrinsic compression from pelvic mass
-Had 11/15 cysto/right retrograde/right ureteroscopy/bx and fulguration/stent placement
Continue meropenem 500mg Iv q 6 hrs. Normal renal function. No right renal colic.
Low back. buttocks Pain: acetaminophen or Lidoderm patch. Roho cushion, repositioning in bed
Chronic Diarrhea: since July 08, 2023. C. diff neg.� O+P neg. Colonoscopy to be done?. Per patient's son- Has been off Metformin for the past 1.5 month and still with diarrhea. Has been taking imodium at home. Etiology?
Coffee ground emesis- No EGD. resolved. Hgb trending down - 15.3 to 12.4. H&H - low. Continue PPI. Follow and repeat CBC, iron
Bladder: Time void, PVRs, PRN straight cath.
GI Prophylaxis: Pantoprazole
DVT Prophylaxis: mechanical , ASA 81mg. per neurosurgery hold off anticoagulation
Pulmonary: Incentive spirometry
Morbid obesity: Continue to personnel counselor patient about diet adjustments to control obesity. Body habitus and increased force to move body and extremities causes further difficulty with functional tasks.
Safety: Continue to reinforce assistance with all transfers.
Thank you for allowing me to care for your patient. Please contact me with any questions or concerns.
This note was dictated using a voice recognition system. Please excuse any typographical errors from shellfish grower. If you believe there are any discrepancies, please notify our office.
[2023-11-14 16:36] LABS: Syphilis/T. pallidum Ab Reflex Negative (Negative)
[2023-11-14] MEDS: LIPITOR 80 MG PO (17:11)
[2023-11-14] MEDS: TYLENOL 1000 MG PO (17:23)
[2023-11-14 18:13] LABS: Potassium 3.5 mmol/L (3.5-5.1)
[2023-11-14] MEDS: COZAAR 100 MG PO (20:54)
[2023-11-15] VITALS (9 sets, daily range): BP systolic 124–184; BP diastolic 59–84; PULSE 95; O2SAT 94; BMI 44.1
[2023-11-15] MEDS: MERREM 500 MG IV ×4 (04:00→21:50)
[2023-11-15] MEDS: STERILE WATER FOR INJECTION 10 ML IV ×4 (04:00→21:50)
--- NOTE | 2023-11-15 07:34 | W.PN.URO.CBU ---
Today's Communication / Plan
-
for OR tomorrow
Assessment / Plan
-
New right hydroureteronephrosis and pelvic soft tissue mass of unclear etiology: ?intraureteral or adnexal
Normal renal function
No right renal colic
ESBL UTI
---
discussed with med team
i believe kidney needs to be decompressed prior to discharge as pt would have liklihood with UTI or re-admit sepsis
tentative plan for OR TOMORROW for diagnostic cysto/retrograde and attempt and ureteroscopy/bx and stent- if this was unsuccessful- would need to reconsult IR for perc placement which we known would be difficult due to pt's size
reviewed with son AND WILL TOUCH BASE WITH HIM AGAIN TODAY
ordered npo after midnight- fluids starting at 11pm and single dose of gent breakdown person to OR
Diagnosis
-
Date of Service: November 15, 2023
-
Patient Diagnosis:
Right hydroureteronephrosis (new) with ureteral or periureteral soft tissue in upper pelvis
Encephalopathy/embolic shower to brain
Diarrhea/vomiting
ESBL UTI
Essentially normal renal function
Subjective
-
pt awake and alert today
no fevers
no specific flank pain
Objective
-
Vital Signs
Temp Pulse Resp BP Pulse Ox
97.9 F 87 18 152/69 92
11/15/23 03:27 11/15/23 03:27 11/15/23 03:27 11/15/23 03:27 11/15/23 03:27
Intake and Output
11/14/23 11/15/23 11/16/23
06:59 06:59 06:59
Intake Total 2390 / 2390 120 / 120
Output Total 50 / 50 350 / 350
Balance 2340 / 2340 -230 / -230
Intake:
Oral fluids 2390 / 2390 120 / 120
Output:
Liquid stool amount 50 / 50
Rectum 50 / 50
Urine, Voided 350 / 350
Other:
How many times incontinent 2
MODERATE amount urine
How many times incontinent 2 3
SATURATED amount urine
Review of Systems
-
Constitutional: Fatigue
Respiratory: No Symptoms
Cardiac: No Symptoms
Abdomen/GI: No Symptoms
Physical Exam
-
General - more alert, no acute distress
Abdomen - soft, non-tender
[2023-11-15] MEDS: SPIRIVA RESPIMAT 2.5 MCG 2 PUFF INH (07:58)
--- NOTE | 2023-11-15 08:01 | W.PN.HOSP.TC ---
Today's Communication/Plan
-
IV antibiotics.
Assessment / Plan
Assessment / Plan
73-year-old female lives at home and gets help from sister. Sister recently was away on vacation was not able to get in touch with the patient which is unusual therefore checked on her upon returning home and found the patient was on the floor
covered in black vomitus. She is also confused. Patient is a poor historian. Son is at bedside he does not give me a good history either.
Son states that she has been confused since June or July when she was started on metformin which she states was not for diabetes but for elevated blood sugars. Then she was taken off of it because of diarrhea and also confusion. Her
confusion has not gotten better. He also states that she has been confused more lately. When asked if she has been taking and states patient states yes but again poor historian. Son states that she only takes Tylenol but he does not live with her.
11/11/23- Spoke to sister . Pt started getting confused as her rent was not being paid. and confusion with financial stuff. Sister asked her son to do her bills. She will come over and and help her. She was not going out of the house. She didn't feel
well Monday. Monday brother called and she sounded 'batty'. She stopped smoking 12 years ago . ' She was always a hippy . Doing drugs -marijuana, never taken care of herself'. Sister states that she has Tylenol by her bedside all the time. Sister
and patient's son also wanting her to be a DNR
MRI-several Scattered tiny acute/subacute infarcts bilateral cerebral hemispheres 1 of which is in the left parietal lobe with a small amount of hemosiderin deposition. Embolic. No definite dural venous sinus thrombosis or stenosis.
Confused
Patient is a little more organized today still confused
Cardiovascular system S1-S2 appreciated
Chest clear to auscultation decreased breath sounds at bases
Abdomen soft has some tenderness in the Right side and right CVA, also has pain left
Lower extremity no edema noted
Patient is able to move all extremities. Good peripheral strength
A/P:
Echo 11/13/2023-normal biventricular size and systolic function. Ejection fraction 55 to 60%. Mild concentric LVH. Arctic sclerosis without stenosis. Trivial evaluation with fibrinous organization
# Embolic stroke
TME and confusion and memory issues secondary to strokes
Likely has vascular dementia also has Acute/subacute strokes.
No history of arrhythmias
Initial CAT scan of the head could not rule out small subarachnoid bleeding,Repeat CAT scan confirms blood products-stable size
Neurosurgery evaluation appreciated
No subarachnoid bleeding noted on MRI
OK for ASA per neuro surgery
Echo-NAYLA today 11/14/23
MRA motion artifact. CUS ordered- results pending
PT OT and speech
Neurology
NIH scale and neurochecks
Physiatry eval
# Coffee-ground emesis
Hemoglobin stable
Continue PPI -changed to PO
Follow H&H- Stable
Per sister she is on Tylenol only
GI evaluation noted
No EGD
on Solid diet
# Reason for diarrhea on admission unclear.
Started after metformin in June and gotten better per son
Cultures are neg
Never had a colonoscopy
Remains off of metformin now
Added probiotics
Diarrhea resolved
# ESBL UTI_ AB changed to Meropenem
ID eval requested.
Patient currently on meropenem
# Hypertension-continue Coreg ,Losartan increased to 50 BID
Started nifedipine here increase to 30 BID
PRN Labetalol till BP meds titrated up
# CHARLY
CKD ruled out
Likely prerenal
Also compromised right kidney function
#Hypokalemia- replace
# Hydronephrosis on the right side which is new since 2021 with a small tissue mass possible
Unclear if right adnexal mass is pushing
Son aware re this and also adnexal mass the need for cadd drafter eval as OP
If neurology clears patient may have a procedure on Monday per discussion with urology.
Urology planning on taking her to the OR tomorrow.
# Mild rhabdomyolysis-resolved
# Mild lactic acidosis-improved
#Large left thyroid lobe mass/nodule-needs an ultrasound and further workup as outpatient
Normal TSH
Son aware
# Back pain-lumbar x-rays noted. Also get thoracic spine x-ray.
Son does not want patient to take narcotics. I do not think tramadol is a good choice given her CVA.
Also she is recovering from acute kidney injury therefore NSAIDs held

# Diabetes history -hemoglobin A1c 5.5
# Chronic heart failure with preserved ejection fraction
Follows with Dr. Jourdan Moon
Patient is on Coreg, losartan as outpatient
son thinks she was on Lasix at 1 point not on The med list now
EKG sinus tachycardia with PACs
Echo 01/18/2022-technically difficult study. Normal biventricular size and function without regional wall motion abnormalities no change since 2018
# Hyperlipidemia/atherosclerosis-continue statin
# GERD/PUD-PPI
# Asthma/COPD
Continue as needed albuterol, Spiriva or equivalent
# Gout-continue allopurinol
# History of perforated diverticulitis 2021
# Hypoalbuminemia
# Sleep apnea-noncompliant with CPAP
She is chronic hypoxic at bedside respiratory failure-prescribed home oxygen
She has O2 , 'never uses , just let the machine run ' per sister.
# Calcified uterine fibroids, cystic lesion in the right adnexa 5.6 cm which previously measured 4 cm
This was found in 2021 and outpatient [employer] follow-up recommended at that time
# Morbid Obesity-affects all aspects of care
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
Osteopenia
X-ray with arthritis changes
# Hepatic steatosis
# Hypoalbuminemia
# Cognitive dysfunction-looks like she has been gradually declining
Also now has CVA
# Ex-smoker
# DVT prophylaxis-SCDs
# DNR per D/W Sister and Son.
Discussed with nursing
Discussed with patient's son at bed side. All questions answered. He was very thankful and mentioned that .
Time 53 min
Anticipated Discharge: > 48 hours
Subjective/Interval History
-
Date of Service: November 15, 2023
Patient denies any chest pain or shortness of breath. Hard of hearing
Objective Data
-
Labs:
Laboratory Results
11/15/23
07:20
WBC Pending
Hgb Pending
Hct Pending
Plt Count Pending
Sodium Pending
Potassium Pending
Chloride Pending
Carbon Dioxide Pending
BUN Pending
Creatinine Pending
Glucose Pending
Calcium Pending
Vital Signs:
Vital Signs
Temp Pulse Resp BP Pulse Ox
97.9 F 87 18 152/69 92
11/15/23 03:27 11/15/23 03:27 11/15/23 03:27 11/15/23 03:27 11/15/23 03:27
I&O
11/14/23 11/15/23 11/16/23
06:59 06:59 06:59
Intake Total 2390 / 2390 120 / 120
Output Total 50 / 50 350 / 350
Balance 2340 / 2340 -230 / -230
Review of Systems
-
All other systems: Reviewed and negative
[2023-11-15 08:37] LABS: Hematocrit 36.6 % (37.0-47.0); Hemoglobin 12.4 g/dL (12.0-16.0); Mean Corp Hgb Conc. 33.9 g/dL (33.0-37.0); Mean Corpuscular Hgb 31.6 pg (27.0-31.0); Mean Corpuscular Volume 93.1 fL (81.0-99.0); Mean Platelet Volume 10.6 fL (7.4-10.4); Platelet Count 236 10^3/uL (130-400); Red Blood Cell Count 3.93 10^6/uL (4.20-5.40); Red Cell Dist. Width 14.2 % (11.5-14.5); White Blood Cell Count 8.6 10^3/uL (4.8-10.8)
[2023-11-15 09:00] LABS: Blood Urea Nitrogen 22 mg/dl (7-17); Carbon Dioxide 29 mmol/L (22-30); Chloride 101 mmol/L (98-107); Estimated Creatinine Clearance 53 ml/min; Glucose 96 mg/dl (70-99); Potassium 3.1 mmol/L (3.5-5.1); Sodium 137 mmol/L (135-145)
--- NOTE | 2023-11-15 09:43 | W.PN.CD ---
Today's Communication / Plan
-
Pricing for SGLT2i
switch losartan to valsartan
Impression / Plan
-
BACKGROUND: 73F chronic diastolic HF, hypertension, severe obesity, stage III CKD, COPD, chronic pain who presented with confusion and coffee ground emesis
IMPRESSION/PLAN:
CVA, embolic
-MRI: Several (approximately 15) scattered tiny acute/subacute infarcts throughout the bilateral cerebral hemispheres
-No atrial fibrillation on telemetry
-Neurology following
- NAYLA as below
Confusion, in the setting of CVA
HFpEF: chronic
-Stable without SOB. Lungs clear.
-Echo this admission stable
-Trend daily weight, I/Os with low sodium diet
- currently lasix is being held
- I discussed adding spironolactone and/or SGLT2i with family, however, currently they would like to hold off
COPD, stable without SOB or wheezing
HTN
-BP above goal
-switch losartan to valsartan
-Mild cLVH on TTE
Severe obesity, BMI 44, she would benefit from weight loss over time affects all aspects of care
Coffee ground emesis, resolved, GI signed off
Diarrhea, per primary
Thyroid mass: per primary
Urologic issues/mass, Urology following, on abx for UTI
SUBJECTIVE:
More oriented but remains slightly confused
NAYLA: CONCLUSIONS
�Normal LV size and function with no regional wall motion abnormalities.
�LVEF is 55 to 60% by visual estimation.
�Mild concentric LVH.
�Normal RV size and function.
�No significant valve abnormality.
�No obvious thrombus seen.
�Compared to TTE from November 13, 2023, no significant change.
Physical Exam
Vital Signs/Labs
Vital Signs
Temp Pulse Resp BP Pulse Ox
98.0 F 85 16 163/69 96
11/15/23 07:30 11/15/23 08:02 11/15/23 08:02 11/15/23 07:30 11/15/23 08:02
11/14/23 11/15/23 11/16/23
06:59 06:59 06:59
Actual Weight 266 lb 5 oz 265 lb 5 oz
11/15/23 07:20
11/15/23 07:20
PT 12.8 Sec (11.4-14.6) 11/09/23 20:14
INR 0.96 11/09/23 20:14
APTT 31.3 Sec (23.4-35.0) 11/09/23 20:14
Magnesium 2.1 mg/dl (1.6-2.3) 11/14/23 07:50
Triglycerides 97 mg/dl (10-149) 11/12/23 03:27
LDL Cholesterol, Calc 89 mg/dl 11/12/23 03:27
VLDL Cholesterol, Calc 19 mg/dl (0-30) 11/12/23 03:27
HDL Cholesterol 39 mg/dl 11/12/23 03:27
Physical Exam
Constitutional: No acute distress
EENT: Anicteric
Cardiovascular: Rhythm & rate is regular and Pedal edema is absent
Respiratory: Respiratory effort normal and Lungs clear to auscul.
GI: Soft
Neuro/Psych: Alert and Oriented
Data Reviewed
-
Date of Service: November 15, 2023
EKG: Tracing Personally Visualized and interpreted
Echo: Tracing Personally Visualized and interpreted
Labs: Labs Reviewed by me
[2023-11-15] MEDS: LIDOCAINE 4% PATCH 1 PATCH TOPICAL ×2 (09:58)
[2023-11-15] MEDS: COREG 12.5 MG PO ×2 (09:59→20:48)
[2023-11-15] MEDS: PROCARDIA XL (EXTENDED RELEASE) 30 MG PO ×2 (09:59→20:48)
[2023-11-15] MEDS: LOW STRENGTH ASPIRIN 81 MG PO (09:59)
[2023-11-15] MEDS: FLORASTOR 250 MG PO ×2 (09:59→20:48)
[2023-11-15] MEDS: PROTONIX 40 MG PO (09:59)
[2023-11-15] MEDS: ZYLOPRIM 300 MG PO (09:59)
[2023-11-15] MEDS: TYLENOL 1000 MG PO ×2 (10:09→23:04)
[2023-11-15] MEDS: DESENEX/MITRAZOL/ZEASORB 1 APPLIC TOPICAL ×2 (10:20→20:50)
[2023-11-15] MEDS: KCL ELIXIR 40 MEQ PO (10:21)
--- NOTE | 2023-11-15 10:23 | W.PN.UPDATE ---
Update Note
Progress Note Update
NAYLA and BLE venous Doppler unremarkable. Family consented to LINQ, inserted on 11/14/23 per Cardiology. Continue aspirin 81mg daily and high dose statin. Discussed with patient and son to follow-up with Neurology as an outpatient in 4-6 weeks, may
see the EMPLOYMENT APPEALS EXAMINER or one of the physicians. We will follow as-needed, please contact our Neurology service with any questions/concerns.
[2023-11-15] MEDS: COZAAR PO (10:29)
--- NOTE | 2023-11-15 12:51 | W.PN.ID1 ---
Date of Service
Date of Service: November 15, 2023
Today's Communication
Continue meropenem.
Assessment / Plan
# Right obstructive uropathy, possibly extrinsic compression from pelvic mass
- 11/08 and 11/09 UA bland.
-11/10 UA 1+LE, 26-30WBC, Ucx 100K ESBL-Ecoli. CT: no renal perinephric stranding
- Per Urology, to OR 11/15 for cystoscopy
- Continue meropenem (d2)
# Embolic CVA
- NAYLA neg vege
-blood cx's negative
- For LINQ
# Confusion since 06/2023
- Syphilis serology negative
# Chronic diarrhea since 06/2023
- Of note, pt never had colonoscopy
- C. diff neg. O+P neg.
# Left thyroid mass
- Outpt workup
Chief Complaint
-: UTI
Vital Signs / Physical Exam
Vital Signs
Vital Signs
Temp Pulse Resp BP Pulse Ox
97.5 F 95 18 132/59 92
11/15/23 11:30 11/15/23 11:30 11/15/23 11:30 11/15/23 11:30 11/15/23 11:30
Physical Exam
Constitutional: Comfortable
Gastrointestinal: Soft, Non Tender and Non Distended
Genito-Urinary: Negative CVA Tenderness
Objective Data
Lab Data
Lab Results
11/15/23 07:20
11/15/23 07:20
PT 12.8 Sec (11.4-14.6) 11/09/23 20:14
INR 0.96 11/09/23 20:14
APTT 31.3 Sec (23.4-35.0) 11/09/23 20:14
Estimated Creat Clear 53 ml/min 11/15/23 07:20
Lactic Acid 1.7 mmol/L (0.7-2.0) 11/10/23 03:55
Total Bilirubin 1.3 mg/dl (0.2-1.3) 11/13/23 08:14
AST 43 U/L (14-36) H 11/13/23 08:14
ALT 34 U/L (0-35) 11/13/23 08:14
Alkaline Phosphatase 97 U/L (38-126) 11/13/23 08:14
Most recent labs reviewed.
Micro Results:
11/11/23 12:08 Blood Culture - Preliminary
Blood/Venous No Growth in 4 days- Final report to follow
11/10/23 15:26 Blood Culture - Preliminary
Blood/Venous No Growth in 4 days- Final report to follow
11/12/23 11:52 Salmonella/Shigella Culture - Final
Feces/Stool No Salmonella, Shigella, Aeromonas or Plesiomonas species
isolated.
Campylobacter Culture - Final
No Campylobacter species isolated.
Shiga Toxin Test - Final
No E. coli Shiga Toxin 1 or 2 detected.
11/11/23 14:49 Urine Culture - Final
Urine Escherichia coli - ESBL
11/13/23 18:12 Cryptosporidium/Giardia - Final
Feces/Stool Negative for Cryptosporidium and/or Giardia Lamblia
antigens.
11/12/23 11:52 C. difficile GDH Antigen & Toxins - Final
Feces/Stool Negative for toxigenic C.difficile
11/10/23 15:26 Blood Culture - Preliminary
Blood/Venous Coagulase neg. staphylococcus
Additional testing on request
Gram Stain - Preliminary
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 Increased size of a simple
appearing cystic lesion in the right adnexa, now measuring up to 5.6 cm.
11/11/23 Brain MRI: Several (approximately 15) scattered tiny acute/subacute infarcts throughout the bilateral cerebral hemispheres as described, one of which in the left parietal lobe has a small amount of associated hemosiderin deposition/blood
products, corresponding with CT findings. Findings may be of embolic etiology. No definite dural venous sinus thrombosis/stenosis identified. No overt focal hemodynamically significant stenosis, aneurysm or occlusion.
[2023-11-15] MEDS: KCL 40 MEQ PO ×2 (15:22→17:42)
--- NOTE | 2023-11-15 16:00 | CM ---
Referral sent to [facility], patient will need PM&R evaluation.
Plan; [facility].
[2023-11-15] MEDS: LIPITOR 80 MG PO (17:42)
[2023-11-15] MEDS: NSS 1000 IV (22:58)
[2023-11-16] VITALS (13 sets, daily range): BP systolic 123–166; BP diastolic 52–73; BMI 43.8
[2023-11-16] MEDS: STERILE WATER FOR INJECTION 10 ML IV ×4 (04:53→21:37)
[2023-11-16] MEDS: MERREM 500 MG IV ×4 (04:53→21:37)
--- NOTE | 2023-11-16 07:18 | ITS.CL.IMPLP ---
Digital Designer - Implant Loop
Implant Loop
Procedure Report:
Procedure: Insertion of Loop Recorder.�
Date of the procedure: 11/14/2023
Procedure Physician: Kyle Bacon MD [facility]
Indication: Cryptogenic stroke
Description of the procedure:
Patient was brought to the holding area after informed consent was obtained from the patient. The time-out was performed immediately before the procedure.
The left parasternal chest area was prepped and draped in sterile fashion with chlorhexidine prep x 3 times. Lidocaine 1% was injected subcutaneously for local anesthesia. The loop recorder was tunneled and then injected into the subcutaneous
tissue. The tunneling tool was removed leaving the loop recorder in place. The dermis was closed with steristrips and a pressure Tegaderm dressing was placed. There were no immediate complications.
Post procedure, the device was interrogated and showed good detectable P and R waves.
There were no immediate complications.
Device:
LINQII; Model: [id number]; Serial #:[id number]
R wave amplitude: 0.5 mV
Final Programming:
��������������� Tachycardia Detection: >182 bpm for 16 beats
��������������� Bradycardia Detection: 30 bpm for 12 beats, Asystole for 5 seconds.
��������������� Atrial fibrillation detection: On with > 10 min duration
Conclusion:
Successful insertion of loop recorder.
Recommendation:
Routine post-insert loop care.
--- NOTE | 2023-11-16 08:04 | W.PN.HOSP.TC ---
Today's Communication/Plan
-
IV antibiotics. Follow-up biopsy.
Assessment / Plan
Assessment / Plan
73-year-old female lives at home and gets help from sister. Sister recently was away on vacation was not able to get in touch with the patient which is unusual therefore checked on her upon returning home and found the patient was on the floor
covered in black vomitus. She is also confused. Patient is a poor historian. Son is at bedside he does not give me a good history either.
Son states that she has been confused since June or July when she was started on metformin which she states was not for diabetes but for elevated blood sugars. Then she was taken off of it because of diarrhea and also confusion. Her
confusion has not gotten better. He also states that she has been confused more lately. When asked if she has been taking and states patient states yes but again poor historian. Son states that she only takes Tylenol but he does not live with her.
11/11/23-Dr. Moore spoke to sister . Pt started getting confused as her rent was not being paid. and confusion with financial stuff. Sister asked her son to do her bills. She will come over and and help her. She was not going out of the house. She
didn't feel well Monday. Monday brother called and she sounded 'batty'. She stopped smoking 12 years ago . ' She was always a hippy . Doing drugs -marijuana, never taken care of herself'. Sister states that she has Tylenol by her bedside all the
time. Sister and patient's son also wanting her to be a DNR
MRI-several Scattered tiny acute/subacute infarcts bilateral cerebral hemispheres 1 of which is in the left parietal lobe with a small amount of hemosiderin deposition. Embolic. No definite dural venous sinus thrombosis or stenosis.
Confused
Patient is a little more organized today still confused
Cardiovascular system S1-S2 appreciated
Chest clear to auscultation decreased breath sounds at bases
Abdomen soft has some tenderness in the Right side and right CVA, also has pain left
Lower extremity no edema noted
Patient is able to move all extremities. Good peripheral strength
A/P:
Pelvic mass, unclear etiology:
Status post cystoscopy with an ureteroscopic and mass biopsy with ureteral stent today on 11/15
Follow-up biopsy
Follow-up postop care
ESBL UTI:
Continue IV meropenem
ID on board
So would like to test her stools but not sure that that is necessary but defer to ID.
Embolic CVA:
Continue aspirin and statin
Status post Linq on 11/13
Hypertension:
Losartan changed to valsartan
Continue valsartan and uptitrate as needed
Discussed with cardiology today on 11/15 and they will sign off
GI bleed:
Resolved
Thyroid mass:
Outpatient workup
Chronic diastolic CHF:
Euvolemic
Continue current management
COPD:
Stable
Prior to today:
Echo 11/13/2023-normal biventricular size and systolic function. Ejection fraction 55 to 60%. Mild concentric LVH. Arctic sclerosis without stenosis. Trivial evaluation with fibrinous organization
# Embolic stroke
TME and confusion and memory issues secondary to strokes
Likely has vascular dementia also has Acute/subacute strokes.
No history of arrhythmias
Initial CAT scan of the head could not rule out small subarachnoid bleeding,Repeat CAT scan confirms blood products-stable size
Neurosurgery evaluation appreciated
No subarachnoid bleeding noted on MRI
OK for ASA per neuro surgery
Echo-NALYA today 11/14/23
MRA motion artifact. CUS ordered- results pending
PT OT and speech
Neurology
NIH scale and neurochecks
Physiatry eval
# Coffee-ground emesis
Hemoglobin stable
Continue PPI -changed to PO
Follow H&H- Stable
Per sister she is on Tylenol only
GI evaluation noted
No EGD
on Solid diet
# Reason for diarrhea on admission unclear.
Started after metformin in June and gotten better per son
Cultures are neg
Never had a colonoscopy
Remains off of metformin now
Added probiotics
Diarrhea resolved
# ESBL UTI_ AB changed to Meropenem
ID eval requested.
Patient currently on meropenem
# Hypertension-continue Coreg ,Losartan increased to 50 BID
Started nifedipine here increase to 30 BID
PRN Labetalol till BP meds titrated up
# CHARLY
CKD ruled out
Likely prerenal
Also compromised right kidney function
#Hypokalemia- replace
# Hydronephrosis on the right side which is new since 2021 with a small tissue mass possible
Unclear if right adnexal mass is pushing
Son aware re this and also adnexal mass the need for traffic signal technician eval as OP
If neurology clears patient may have a procedure on Monday per discussion with urology.
Urology planning on taking her to the OR tomorrow.
# Mild rhabdomyolysis-resolved
# Mild lactic acidosis-improved
#Large left thyroid lobe mass/nodule-needs an ultrasound and further workup as outpatient
Normal TSH
Son aware
# Back pain-lumbar x-rays noted. Also get thoracic spine x-ray.
Son does not want patient to take narcotics. I do not think tramadol is a good choice given her CVA.
Also she is recovering from acute kidney injury therefore NSAIDs held

# Diabetes history -hemoglobin A1c 5.5
# Chronic heart failure with preserved ejection fraction
Follows with Dr. Jourdan Krakowski
Patient is on Coreg, losartan as outpatient
son thinks she was on Lasix at 1 point not on The med list now
EKG sinus tachycardia with PACs
Echo 01/18/2022-technically difficult study. Normal biventricular size and function without regional wall motion abnormalities no change since 2018
# Hyperlipidemia/atherosclerosis-continue statin
# GERD/PUD-PPI
# Asthma/COPD
Continue as needed albuterol, Spiriva or equivalent
# Gout-continue allopurinol
# History of perforated diverticulitis 2021
# Hypoalbuminemia
# Sleep apnea-noncompliant with CPAP
She is chronic hypoxic at bedside respiratory failure-prescribed home oxygen
She has O2 , 'never uses , just let the machine run ' per sister.
# Calcified uterine fibroids, cystic lesion in the right adnexa 5.6 cm which previously measured 4 cm
This was found in 2021 and outpatient [employer] follow-up recommended at that time
# Morbid Obesity-affects all aspects of care
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
Osteopenia
X-ray with arthritis changes
# Hepatic steatosis
# Hypoalbuminemia
# Cognitive dysfunction-looks like she has been gradually declining
Also now has CVA
# Ex-smoker
# DVT prophylaxis-SCDs
# DNR
Total time spent on today's encounter was 52 minutes which included time spent in counseling the patient/family regarding diagnosis and treatment plan as listed above, goals of care, and symptom management. Case was discussed with nursing staff,
specialists, and care coordinators/case management. All labs and imaging personally reviewed by me. Remainder the time spent in detailed review of previous records, lab data, imaging, and other medical provider documentation.
Anticipated Discharge: > 48 hours
Subjective/Interval History
-
Date of Service: November 16, 2023
Patient seen examined today. No new complaints. Seen postop and son at bedside. Afebrile
Objective Data
-
Labs:
Laboratory Results
03/21/24
06:00
WBC Pending
Hgb Pending
Hct Pending
Plt Count Pending
Sodium Pending
Potassium Pending
Chloride Pending
Carbon Dioxide Pending
BUN Pending
Creatinine Pending
Glucose Pending
Calcium Pending
Vital Signs:
Vital Signs
Temp Pulse Resp BP Pulse Ox
97.8 F 89 18 150/73 93
11/16/23 04:34 11/16/23 04:34 11/16/23 04:34 11/16/23 04:34 11/16/23 04:34
I&O
11/15/23 11/16/23 11/17/23
06:59 06:59 06:59
Intake Total 120 / 120 1120 / 1120
Output Total 350 / 350 400 / 400
Balance -230 / -230 720 / 720
--- NOTE | 2023-11-16 08:06 | W.IMMPOSTOP ---
Surgical Immed Post Op Note
-
Primary Surgeon:
lilian
Assisting Surgeon:
ruenes
Pre-op Diagnosis:
right hydro- tumor
Post-op Diagnosis:
right hydro-tumor
Procedure Performed:
cysto/right retrograde/right ureteroscopy/bx and fulguration/stent placement
Anesthesia Type:
gen
Specimen / Cultures:
right ureteral tumor bx- urine cx
Estimated Blood Loss:
5cc
Complications:
none
Operative Findings:
very tortuous ureter all the way down to level of bladder
retrograde appeared to show large filling defect in mid ureter
could not initially advance wire- ureteroscope was able to navigate all the way up to kidney and wire placed
in mid ureter- irregular wall tissue biopsied and stent placed- valdivia placed
continue valdivia for 48hrs to observe for hematuria- then d/c
would rec start of methenamine bid when antibx course completed
stent to remain in place- will follow up as outpt when bx back
repeat ucx from OR also submitted
reviewed with son
[2023-11-16] MEDS: SPIRIVA RESPIMAT 2.5 MCG INH (08:26)
[2023-11-16] MEDS: NSS 1000 IV ×2 (08:50→20:31)
[2023-11-16 09:59] LABS: Hematocrit 37.5 % (37.0-47.0); Hemoglobin 12.5 g/dL (12.0-16.0); Mean Corp Hgb Conc. 33.3 g/dL (33.0-37.0); Mean Corpuscular Hgb 31.3 pg (27.0-31.0); Mean Platelet Volume 10.4 fL (7.4-10.4); Platelet Count 238 10^3/uL (130-400); Red Blood Cell Count 3.99 10^6/uL (4.20-5.40); Red Cell Dist. Width 14.3 % (11.5-14.5); White Blood Cell Count 7.9 10^3/uL (4.8-10.8)
--- NOTE | 2023-11-16 10:22 | W.PN.CD ---
Today's Communication / Plan
-
resp status stable post op
continueot monitor volume status and weights
Patientis post implantable loop implant 11/14/23- will need incion check one week post op 11/21/23
losartan was changed to valsartan this admit. . Monitor. Can titrate Valsartan in additonal BP control needed.
call if addtional assistance required.
Impression / Plan
-
BACKGROUND: 73F chronic diastolic HF, hypertension, severe obesity, stage III CKD, COPD, chronic pain who presented with confusion and coffee ground emesis
IMPRESSION/PLAN:
CVA, embolic
-MRI: Several (approximately 15) scattered tiny acute/subacute infarcts throughout the bilateral cerebral hemispheres
-No atrial fibrillation on telemetry
-Neurology following
- NAYLA as below
- implantable loo 11/14/23 - bandage intact. will need incision check 1 week post implant ( 11/21/23)
Confusion, in the setting of CVA
HFpEF: chronic
-Stable without SOB. Lungs clear.
-Echo this admission stable
-Trend daily weight, I/Os with low sodium diet
- currently lasix is being held
- Basedon prior notres there was a discussion adding spironolactone and/or SGLT2i with family, however, currently they would like to hold off
Post urologic procedure 11/16/23
Post op dx: right hydro-tumor
Procedure Performed:�
cysto/right retrograde/right ureteroscopy/bx and fulguration/stent placement
COPD, stable without SOB or wheezing
HTN
losartan waschanged to valsartan this admit. . Monitor. Can titrate Valsartan in additonal BP control needed.
-Mild cLVH on TTE
Severe obesity, BMI 44, she would benefit from weight loss over time affects all aspects of care
Coffee ground emesis, resolved, GI signed off
Diarrhea, per primary
Thyroid mass: per primary
Urologic issues/mass, Urology following, on abx for UTI
SUBJECTIVE:
just returned from OR. stable
NAYLA: CONCLUSIONS
�Normal LV size and function with no regional wall motion abnormalities.
�LVEF is 55 to 60% by visual estimation.
�Mild concentric LVH.
�Normal RV size and function.
�No significant valve abnormality.
�No obvious thrombus seen.
�Compared to TTE from November 13, 2023, no significant change.
Physical Exam
Vital Signs/Labs
Vital Signs
Temp Pulse Resp BP Pulse Ox
97.4 F 84 17 157/72 92
11/16/23 09:00 11/16/23 09:00 11/16/23 09:00 11/16/23 09:00 11/16/23 09:00
11/15/23 11/16/23 11/17/23
06:59 06:59 06:59
Actual Weight 120.344 kg 119.351 kg
11/16/23 09:15
PT 12.8 Sec (11.4-14.6) 11/09/23 20:14
INR 0.96 11/09/23 20:14
APTT 31.3 Sec (23.4-35.0) 11/09/23 20:14
Magnesium 2.1 mg/dl (1.6-2.3) 11/14/23 07:50
Triglycerides 97 mg/dl (10-149) 11/12/23 03:27
LDL Cholesterol, Calc 89 mg/dl 11/12/23 03:27
VLDL Cholesterol, Calc 19 mg/dl (0-30) 11/12/23 03:27
HDL Cholesterol 39 mg/dl 11/12/23 03:27
Physical Exam
Constitutional: Other (appears a little drowsy after returningfrom OR but awake and responsive. )
Cardiovascular: Rhythm & rate is regular
Respiratory: Respiratory effort normal
GI: Soft
Neuro/Psych: Alert
Data Reviewed
-
Date of Service: November 16, 2023
Medical Decision Making: Reviewed Test Results
EKG: Other (tele nsr)
Medical Tests (PFT, Pathology etc): Report Reviewed by me
Labs: Labs Reviewed by me
[2023-11-16 10:47] LABS: Blood Urea Nitrogen 25 mg/dl (7-17); Calcium 8.5 mg/dl (8.4-10.2); Carbon Dioxide 25 mmol/L (22-30); Chloride 107 mmol/L (98-107); Estimated Creatinine Clearance 43 ml/min; Glucose 91 mg/dl (70-99); Potassium 3.8 mmol/L (3.5-5.1); Sodium 137 mmol/L (135-145); eGFR 36.34
[2023-11-16] MEDS: PROCARDIA XL (EXTENDED RELEASE) 30 MG PO ×2 (10:47→19:53)
[2023-11-16] MEDS: PROTONIX 40 MG PO (10:47)
[2023-11-16] MEDS: DIOVAN 240 MG PO (10:47)
[2023-11-16] MEDS: LOW STRENGTH ASPIRIN 81 MG PO (10:47)
[2023-11-16] MEDS: ZYLOPRIM 300 MG PO (10:48)
[2023-11-16] MEDS: FLORASTOR 250 MG PO ×2 (10:48→19:52)
[2023-11-16] MEDS: COREG 12.5 MG PO ×2 (10:49→19:53)
[2023-11-16] MEDS: DESENEX/MITRAZOL/ZEASORB 1 APPLIC TOPICAL ×2 (10:49→19:54)
[2023-11-16] MEDS: LIDOCAINE 4% PATCH 1 PATCH TOPICAL ×2 (10:50→10:51)
--- NOTE | 2023-11-16 11:09 | CM ---
medical case manager reviewed patient's chart and met with patient and patient's son this am to review discharge plans, [facility] is patient's first choice, referral sent, patient needs PM&R evaluation and recommendations, upper caser also discussed
SAC, skilled options and provided Medicare.gov list and ratings.
Plan; rehab placement. Patient needs new PT/OT orders as patient had surgery when appropriate and PM&R evaluation and recommendations.
[2023-11-16] MEDS: SPIRIVA RESPIMAT 2.5 MCG 2 PUFF INH (11:30)
--- NOTE | 2023-11-16 14:15 | PTOTSP ---
ST Acute Cognitive Linguistic Evaluation
Pt presents with intact speech clarity and production, but mild to moderate receptive and expressive deficits characterized by impaired naming and difficulty following directions that are more than one step in duration. Pt requires information to be
repeated frequently due to hearing impairment vs reduced auditory processing. Further cognitive linguistic assessment and treatment is recommended at the next level of care.
--- NOTE | 2023-11-16 15:08 | PTOTSP ---
attempted intervention, pt underwent surgical procedure to resect tumor this AM under general anesthesia. will require new orders. will continue to monitor.
--- NOTE | 2023-11-16 16:01 | W.PN.ID1 ---
Date of Service
Date of Service: November 16, 2023
Today's Communication
Continue meropenem.
Follow OR Ucx.
Assessment / Plan
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
- 11/08 and 11/09 UA bland.
-11/10 UA 1+LE, 26-30WBC, Ucx 100K ESBL-Ecoli. CT: no renal perinephric stranding
-11/16/23 s/p right ureteroscopy/stent placement. + right ureter tumor biopsied
OR repeat Ucx pending
- Continue meropenem (d3 of 7 or more)
# Embolic CVA
- NAYLA neg vege
-blood cx's negative
- For LINQ
# Confusion since 06/2023
- Syphilis serology negative
# Chronic diarrhea since 06/2023
- Of note, pt never had colonoscopy
- C. diff neg. O+P neg.
# Left thyroid mass
- Outpt workup
# Additional Past Medical History:
DM-II
COPD
Hypertension
HFpEF
DDD / Osteoporosis
Morbid Obesity BMI 44
Gout
GERD / PUD
diverticulitis
Chief Complaint
-: UTI
Subjective / Review of Systems
No complaints. Eating her lunch.
Vital Signs / Physical Exam
Vital Signs
Vital Signs
Temp Pulse Resp BP Pulse Ox
97.5 F 85 16 124/69 95
11/16/23 10:40 11/16/23 11:31 11/16/23 11:31 11/16/23 10:47 11/16/23 11:31
Physical Exam
Constitutional: No Acute Distress and Comfortable
Cardiovascular: Regular Rate and S1/S2
Pulmonary: Clear
Gastrointestinal: Soft, Non Tender and Non Distended
Neurological: Awake and Alert
Objective Data
Lab Data
Lab Results
11/16/23 09:15
11/16/23 09:15
PT 12.8 Sec (11.4-14.6) 11/09/23 20:14
INR 0.96 11/09/23 20:14
APTT 31.3 Sec (23.4-35.0) 11/09/23 20:14
Estimated Creat Clear 43 ml/min 11/16/23 09:15
Lactic Acid 1.7 mmol/L (0.7-2.0) 11/10/23 03:55
Total Bilirubin 1.3 mg/dl (0.2-1.3) 11/13/23 08:14
AST 43 U/L (14-36) H 11/13/23 08:14
ALT 34 U/L (0-35) 11/13/23 08:14
Alkaline Phosphatase 97 U/L (38-126) 11/13/23 08:14
Most recent labs reviewed.
Micro Results:
11/11/23 12:08 Blood Culture - Final
Blood/Venous No Growth - Final Report
11/16/23 07:32 Urine Culture - Pending
Urine
11/10/23 15:26 Blood Culture - Final
Blood/Venous No Growth - Final Report
11/12/23 11:52 Salmonella/Shigella Culture - Final
Feces/Stool No Salmonella, Shigella, Aeromonas or Plesiomonas species
isolated.
Campylobacter Culture - Final
No Campylobacter species isolated.
Shiga Toxin Test - Final
No E. coli Shiga Toxin 1 or 2 detected.
11/11/23 14:49 Urine Culture - Final
Urine Escherichia coli - ESBL
11/13/23 18:12 Cryptosporidium/Giardia - Final
Feces/Stool Negative for Cryptosporidium and/or Giardia Lamblia
antigens.
11/12/23 11:52 C. difficile GDH Antigen & Toxins - Final
Feces/Stool Negative for toxigenic C.difficile
11/10/23 15:26 Blood Culture - Preliminary
Blood/Venous Coagulase neg. staphylococcus
Additional testing on request
Gram Stain - Preliminary
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 Increased size of a simple
appearing cystic lesion in the right adnexa, now measuring up to 5.6 cm.
11/11/23 Brain MRI: Several (approximately 15) scattered tiny acute/subacute infarcts throughout the bilateral cerebral hemispheres as described, one of which in the left parietal lobe has a small amount of associated hemosiderin deposition/blood
products, corresponding with CT findings. Findings may be of embolic etiology. No definite dural venous sinus thrombosis/stenosis identified. No overt focal hemodynamically significant stenosis, aneurysm or occlusion.
[2023-11-16] MEDS: LIPITOR 80 MG PO (16:56)
[2023-11-17] VITALS (7 sets, daily range): BP systolic 126–140; BP diastolic 52–80; BMI 43.3
[2023-11-17] MEDS: STERILE WATER FOR INJECTION 10 ML IV ×4 (03:12→21:31)
[2023-11-17] MEDS: MERREM 500 MG IV ×4 (03:12→21:30)
--- NOTE | 2023-11-17 07:07 | W.PN.URO.CBU ---
Today's Communication / Plan
-
valdivia out tomorrow
await OR ucx
f/u on pathology report as outpt
Assessment / Plan
-
New right hydroureteronephrosis and pelvic soft tissue mass of unclear etiology: ?intraureteral or adnexal
Normal renal function
No right renal colic
ESBL UTI
S/P CYSTO/RIGHT URETEROSCOPY AND BX/STENT 11/15
---
pt stable
ID directing antibx- OR cx pending- when finished with current antibx course- would rec starting methenamine 1 gram bid to reduce chance of recurrent infx
start flomax today- valdivia out in am
awaiting pathology- but i will contact pt's son with results
Diagnosis
-
Date of Service: November 17, 2023
-
Patient Diagnosis:
Right hydroureteronephrosis (new) with ureteral or periureteral soft tissue in upper pelvis
Encephalopathy/embolic shower to brain
Diarrhea/vomiting
ESBL UTI
Essentially normal renal function
s/p ureteroscopy/bx and stent 11/15
Subjective
-
pt asleep
valdivia in place
no fevers
urine clear thru valdivia
OR ucx pending
Objective
-
Vital Signs
Temp Pulse Resp BP Pulse Ox
98.2 F 86 18 128/52 92
11/17/23 03:08 11/17/23 03:08 11/17/23 03:08 11/17/23 03:08 11/17/23 03:08
Intake and Output
11/16/23 11/17/23 11/18/23
06:59 06:59 06:59
Intake Total 1120 / 1120 1750 / 1750
Output Total 400 / 400 4525 / 4525
Balance 720 / 720 -2775 / -2775
Intake:
Oral fluids 480 / 480 240 / 240
IV fluids (Total) 640 / 640 1490 / 1490
normosol 50 / 50
IV piggybacks 20 20
Output:
Urine, Valdivia 4524 / 4525
Urine, Voided 400 / 400
Physical Exam
-
General - no acute distress
[2023-11-17] MEDS: SPIRIVA RESPIMAT 2.5 MCG 2 PUFF INH (07:09)
--- NOTE | 2023-11-17 08:48 | W.PN.HOSP.TC ---
Addendum entered and electronically signed by Babatunde Ricci MD 11/17/23 18:30:
Reported some sob and hypoxia-->ordering labs and cxr and ekg but also told RN if she gets any worse or unstable please contact cross-covering physician to evaluate.
Original Note:
Today's Communication/Plan
-
Continue IV meropenem. PT OT reeval.
Assessment / Plan
Assessment / Plan
73-year-old female lives at home and gets help from sister. Sister recently was away on vacation was not able to get in touch with the patient which is unusual therefore checked on her upon returning home and found the patient was on the floor
covered in black vomitus. She is also confused. Patient is a poor historian. Son is at bedside he does not give me a good history either.
Son states that she has been confused since June or July when she was started on metformin which she states was not for diabetes but for elevated blood sugars. Then she was taken off of it because of diarrhea and also confusion. Her
confusion has not gotten better. He also states that she has been confused more lately. When asked if she has been taking and states patient states yes but again poor historian. Son states that she only takes Tylenol but he does not live with her.
11/11/23-Dr. Moore spoke to sister . Pt started getting confused as her rent was not being paid. and confusion with financial stuff. Sister asked her son to do her bills. She will come over and and help her. She was not going out of the house. She
didn't feel well Monday. Monday brother called and she sounded 'batty'. She stopped smoking 12 years ago . ' She was always a hippy . Doing drugs -marijuana, never taken care of herself'. Sister states that she has Tylenol by her bedside all the
time. Sister and patient's son also wanting her to be a DNR
MRI-several Scattered tiny acute/subacute infarcts bilateral cerebral hemispheres 1 of which is in the left parietal lobe with a small amount of hemosiderin deposition. Embolic. No definite dural venous sinus thrombosis or stenosis.
Confused
Patient is a little more organized today still confused
Cardiovascular system S1-S2 appreciated
Chest clear to auscultation decreased breath sounds at bases
Abdomen soft has some tenderness in the Right side and right CVA, also has pain left
Lower extremity no edema noted but noticed edema in left upper extremity where she has vascular access
Patient is able to move all extremities. Good peripheral strength
Echo 11/13/2023-normal biventricular size and systolic function. Ejection fraction 55 to 60%. Mild concentric LVH. Arctic sclerosis without stenosis. Trivial evaluation with fibrinous organization
A/P:
#Pelvic mass with right side hydronephrosis, unclear etiology, concern for malignancy:
Status post cystoscopy with an ureteroscopic and mass biopsy with ureteral stent on 11/15
Follow-up biopsy--> can follow-up outpatient if and when medically ready
Started on Flomax
Hilario catheter in place planning to discontinue tomorrow
Follow-up postop care
Appreciate urology consult and follow-up
Updated son at bedside today
PT OT reeval postop for discharge disposition
# Edema left upper extremity
Check ultrasound today to rule out DVT
# Embolic stroke
TME and confusion and memory issues secondary to strokes
Likely has vascular dementia also has Acute/subacute strokes.
No history of arrhythmias
Initial CAT scan of the head could not rule out small subarachnoid bleeding,Repeat CAT scan confirms blood products-stable size
Neurosurgery evaluation appreciated
No subarachnoid bleeding noted on MRI
OK for ASA per neuro surgery
Continue aspirin and statin
Status post Linq on 11/13
Echo-NAYLA 11/14/23
MRA motion artifact. CUS ordered- results pending
PT OT and speech
Neurology
NIH scale and neurochecks
Physiatry eval
# Coffee-ground emesis
Hemoglobin stable, 10.9 today
Continue PPI -changed to PO
Follow H&H- Stable
Per sister she is on Tylenol only
GI evaluation noted
No EGD
on Solid diet
# Reason for diarrhea on admission unclear.
Started after metformin in June and gotten better per son
Cultures are neg
Never had a colonoscopy
Remains off of metformin now
Added probiotics
Diarrhea resolved
# ESBL UTI_ AB changed to Meropenem
ID onur requested and appreciated input.
Patient currently on meropenem day 4 out of 7
# Hypertension-
Losartan changed to valsartan
Continue valsartan and up-titrate as needed
Continue Coreg 12.5 mg twice a day
Continue nifedipine 30 mg p.o. twice a day
Discussed with cardiology on 11/15 and they signed off
PRN Labetalol
# CHARLY
Creatinine 1.2 today
CKD ?ruled out
Likely prerenal
Also compromised right kidney function
#Hypokalemia- replace
# Mild rhabdomyolysis-resolved
# Mild lactic acidosis-improved
#Large left thyroid lobe mass/nodule-needs an ultrasound and further workup as outpatient
Normal TSH
Son aware
# Back pain-lumbar x-rays noted. Also get thoracic spine x-ray.
Son does not want patient to take narcotics. I do not think tramadol is a good choice given her CVA.
Also she is recovering from acute kidney injury therefore NSAIDs held

# Diabetes history -hemoglobin A1c 5.5
# Chronic heart failure with preserved ejection fraction
Follows with Dr. Jourdan Moon
Patient is on Coreg, losartan as outpatient now valsartan
son thinks she was on Lasix at 1 point not on The med list now
EKG sinus tachycardia with PACs
Echo 01/18/2022-technically difficult study. Normal biventricular size and function without regional wall motion abnormalities no change since 2018
# Hyperlipidemia/atherosclerosis-continue statin
# GERD/PUD-PPI
# Asthma/COPD
Continue as needed albuterol, Spiriva or equivalent
# Gout-continue allopurinol
# History of perforated diverticulitis 2021
# Hypoalbuminemia
# Sleep apnea-noncompliant with CPAP
She is chronic hypoxic at bedside respiratory failure-prescribed home oxygen
She has O2 , 'never uses , just let the machine run ' per sister.
# Calcified uterine fibroids, cystic lesion in the right adnexa 5.6 cm which previously measured 4 cm
This was found in 2021 and outpatient [facility] follow-up recommended at that time
# Morbid Obesity-affects all aspects of care
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
Osteopenia
X-ray with arthritis changes
# Hepatic steatosis
# Hypoalbuminemia
# Cognitive dysfunction-looks like she has been gradually declining
Also now has CVA
# Ex-smoker
# DVT prophylaxis-SCDs
# DNR
Anticipated Discharge: > 48 hours
Subjective/Interval History
-
Date of Service: November 17, 2023
Patient is hard of hearing. Patient complains of left arm swelling. Patient denies any chest pain or shortness of breath. Denies any abdominal pain or nausea. Afebrile
Objective Data
-
Labs:
Laboratory Results
11/17/23
07:25
WBC Pending
Hgb Pending
Hct Pending
Plt Count Pending
Sodium Pending
Potassium Pending
Chloride Pending
Carbon Dioxide Pending
BUN Pending
Creatinine Pending
Glucose Pending
Calcium Pending
Vital Signs:
Vital Signs
Temp Pulse Resp BP Pulse Ox
98.3 F 84 16 136/60 93
11/17/23 08:20 11/17/23 08:20 11/17/23 08:20 11/17/23 08:20 11/17/23 08:20
I&O
11/16/23 11/17/23 11/18/23
06:59 06:59 06:59
Intake Total 1120 / 1120 1750 / 1750
Output Total 400 / 400 4525 / 4525
Balance 720 / 720 -2775 / -2775
[2023-11-17] MEDS: LOW STRENGTH ASPIRIN 81 MG PO (09:20)
[2023-11-17] MEDS: FLORASTOR 250 MG PO ×2 (09:20→21:25)
[2023-11-17] MEDS: DIOVAN 240 MG PO (09:20)
[2023-11-17] MEDS: FLOMAX 0.400000000000000022 MG PO (09:21)
[2023-11-17] MEDS: COREG 12.5 MG PO ×2 (09:21→21:25)
[2023-11-17] MEDS: PROTONIX 40 MG PO (09:21)
[2023-11-17] MEDS: PROCARDIA XL (EXTENDED RELEASE) 30 MG PO ×2 (09:21→21:32)
[2023-11-17] MEDS: LIDOCAINE 4% PATCH 1 PATCH TOPICAL ×2 (09:22)
[2023-11-17] MEDS: ZYLOPRIM 300 MG PO (09:27)
[2023-11-17 09:39] LABS: Hematocrit 33.1 % (37.0-47.0); Hemoglobin 10.9 g/dL (12.0-16.0); Mean Corp Hgb Conc. 32.9 g/dL (33.0-37.0); Mean Corpuscular Hgb 30.8 pg (27.0-31.0); Mean Corpuscular Volume 93.5 fL (81.0-99.0); Mean Platelet Volume 10.5 fL (7.4-10.4); Platelet Count 244 10^3/uL (130-400); Red Blood Cell Count 3.54 10^6/uL (4.20-5.40); Red Cell Dist. Width 14.5 % (11.5-14.5); White Blood Cell Count 7.1 10^3/uL (4.8-10.8)
--- NOTE | 2023-11-17 10:00 | PTCARENOTE ---
Small 1cm x1cm pressure sore noted, stage 2. Foam placed to sacrum. Static air placed on bed. Patient on turning schedule, patient encpouraged to make position changes when possible. Consuming 100% of meals. Will monitor.
[2023-11-17 10:18] LABS: Blood Urea Nitrogen 22 mg/dl (7-17); Calcium 8.4 mg/dl (8.4-10.2); Carbon Dioxide 28 mmol/L (22-30); Chloride 106 mmol/L (98-107); Estimated Creatinine Clearance 53 ml/min; Glucose 105 mg/dl (70-99); Potassium 3.5 mmol/L (3.5-5.1); Sodium 138 mmol/L (135-145)
--- NOTE | 2023-11-17 10:45 | PTOTSP ---
ST Follow Up Tx
Mild/functional oral dysphagia. Intact speech clarity and production, but mild to moderate receptive and expressive deficits
Pt received awake/alert with son present at the bedside. Sitting upright in bed conducted trials of regular solids/thin liquids. Demo adequate oral access/containment, mildly prolonged yet effective mastication and bolus was orally cleared. Thin
liquids by straw sip swallow appears timely. No overt s/sx of aspiration observed during this session.
Recommend
1. Continue regular solids/thin liquids
2. Aspiration precautions and meal set up assist as needed
3. Small bites, moisten solids with gravy/sauce as needed and slow rate
4. Meds with sips of water
5. No further acute QUALITY CONTROL MICROBIOLOGIST needs - advise brief dysphagia follow up and language tx upon d/c to next level of care
[2023-11-17] MEDS: DESENEX/MITRAZOL/ZEASORB 1 APPLIC TOPICAL ×2 (12:19→21:24)
--- NOTE | 2023-11-17 13:13 | CM ---
Addendum entered by Tess Osorio 11/17/23 14:56:
Per Caio at [facility] they will accept veronique in acute rehab, [phone].
Original Note:
Chart reviewed and new PT/OT orders placed on Chart. Referral was sent to [facility], PM&R pending. [facility]st Choice is [facility], and referrals sent to care home facilities as a back up plan.
Plan; Rehab placement.
[2023-11-17] MEDS: TYLENOL 1000 MG PO (15:34)
[2023-11-17] MEDS: LIPITOR 80 MG PO (17:17)
[2023-11-17 19:00] LABS: % Basophils 0.4 % (0-2); % Immature Granulocytes 0.3 % (0-0.5); % Lymphocytes 20.1 % (20.5-51.1); % Monocytes 11.1 % (1.7-9.3); % Neutrophils 65.1 % (42.2-75.2); Absolute Eosinophils 0.2 10^3/uL (0-0.7); Absolute Lymphocytes 1.5 10^3/uL (1.2-3.4); Absolute Monocytes 0.8 10^3/uL (0.1-0.6); Absolute Neutrophils 4.7 10^3/uL (1.4-6.5); Hematocrit 34.2 % (37.0-47.0); Hemoglobin 11.5 g/dL (12.0-16.0); Mean Corp Hgb Conc. 33.6 g/dL (33.0-37.0); Mean Corpuscular Hgb 31.3 pg (27.0-31.0); Mean Corpuscular Volume 92.9 fL (81.0-99.0); Mean Platelet Volume 9.8 fL (7.4-10.4); Nucleated Red Blood Cells % 0 %; Platelet Count 257 10^3/uL (130-400); Red Blood Cell Count 3.68 10^6/uL (4.20-5.40); Red Cell Dist. Width 14.5 % (11.5-14.5); White Blood Cell Count 7.2 10^3/uL (4.8-10.8)
[2023-11-17 19:11] LABS: INR 0.99; PT 12.9 Sec (11.4-14.6)
[2023-11-17 19:12] LABS: APTT 28.1 Sec (23.4-35.0)
[2023-11-17 19:21] LABS: Amylase 49 U/L (30-110); Lipase 381 U/L (23-300)
[2023-11-17 19:23] LABS: ALT (SGPT) 20 U/L (0-35); AST (SGOT) 25 U/L (14-36); Albumin 2.9 g/dl (3.5-5.0); Alkaline Phosphatase 84 U/L (38-126); Blood Urea Nitrogen 22 mg/dl (7-17); Calcium 8.8 mg/dl (8.4-10.2); Carbon Dioxide 29 mmol/L (22-30); Chloride 101 mmol/L (98-107); Estimated Creatinine Clearance 53 ml/min; Glucose 116 mg/dl (70-99); Potassium 3.3 mmol/L (3.5-5.1); Sodium 137 mmol/L (135-145); Total Bilirubin 0.4 mg/dl (0.2-1.3); Total Protein 5.5 g/dl (6.3-8.2)
[2023-11-17 19:26] LABS: Lactic Acid 2.1 mmol/L (0.7-2.0)
--- NOTE | 2023-11-17 19:31 | PTCARENOTE ---
Patient in chair all afternoon. Then ambulating from chair in to bathroom with assist x2 and RW. Patient having medium brown formed stool. Becoming SOB and fatigued on way back from bathroom. Pox noted to be 90% on RA once back in bed. Pox
increasing to 93% on RA with deep breathing. Patient placed on 2L O2 for comfort. Patient also reports intermittent shocking pain to L breast tissue--which has been throughout day. MD notified. Labs, CXR, and EKG ordered. Nightshift RN updated
[2023-11-17 19:38] LABS: Procalcitonin 0.05 ng/ml (0.0-0.25); Troponin I 0.012 ng/ml
[2023-11-18] VITALS (8 sets, daily range): BP systolic 123–192; BP diastolic 54–103; PULSE 92; O2SAT 96; BMI 44.0
[2023-11-18] MEDS: STERILE WATER FOR INJECTION 10 ML IV ×4 (04:22→21:07)
[2023-11-18] MEDS: MERREM 500 MG IV ×4 (04:22→21:07)
[2023-11-18] MEDS: FLUSH (NSS) 1 FLUSH IV (04:25)
--- NOTE | 2023-11-18 06:32 | VATNOTE ---
CALLED TO ASSESS LUE MIDLINE. AREA OF OLD BRUISING NOTED LATERAL TO INSERTION SITE ON BOTH SIDES AND BELOW INSERTION SITE. INSERTION SITE APPEARS WNL. NO SWELLING NOTED AND DRSG C/D/I. ML FLUSHES WELL BUT NO BR WHICH IS NOT A NEW FINDING. VAT TO
CONTINUE TO MONITOR.
[2023-11-18 07:08] LABS: Hematocrit 35.9 % (37.0-47.0); Hemoglobin 12.1 g/dL (12.0-16.0); Mean Corp Hgb Conc. 33.7 g/dL (33.0-37.0); Mean Corpuscular Hgb 31.3 pg (27.0-31.0); Mean Corpuscular Volume 92.8 fL (81.0-99.0); Mean Platelet Volume 9.8 fL (7.4-10.4); Platelet Count 252 10^3/uL (130-400); Red Blood Cell Count 3.87 10^6/uL (4.20-5.40); Red Cell Dist. Width 14.3 % (11.5-14.5); White Blood Cell Count 5.8 10^3/uL (4.8-10.8)
[2023-11-18 07:30] LABS: Blood Urea Nitrogen 19 mg/dl (7-17); Calcium 8.8 mg/dl (8.4-10.2); Carbon Dioxide 30 mmol/L (22-30); Chloride 103 mmol/L (98-107); Estimated Creatinine Clearance 71 ml/min; Glucose 97 mg/dl (70-99); Potassium 3.3 mmol/L (3.5-5.1); Sodium 139 mmol/L (135-145); eGFR > 60.00
[2023-11-18] MEDS: SPIRIVA RESPIMAT 2.5 MCG 2 PUFF INH (08:18)
[2023-11-18] MEDS: FLORASTOR 250 MG PO ×2 (10:22→21:06)
[2023-11-18] MEDS: LOW STRENGTH ASPIRIN 81 MG PO (10:22)
[2023-11-18] MEDS: FLOMAX 0.400000000000000022 MG PO (10:22)
[2023-11-18] MEDS: PROTONIX 40 MG PO (10:23)
[2023-11-18] MEDS: ZYLOPRIM 300 MG PO (10:25)
[2023-11-18] MEDS: DIOVAN 240 MG PO (10:26)
[2023-11-18] MEDS: COREG 12.5 MG PO ×2 (10:31→21:06)
[2023-11-18] MEDS: LIDOCAINE 4% PATCH 1 PATCH TOPICAL ×2 (10:31→10:33)
[2023-11-18] MEDS: PROCARDIA XL (EXTENDED RELEASE) 30 MG PO ×2 (10:31→21:34)
[2023-11-18] MEDS: DESENEX/MITRAZOL/ZEASORB 1 APPLIC TOPICAL ×2 (10:32→20:58)
[2023-11-18] MEDS: TYLENOL 1000 MG PO (10:35)
[2023-11-18] MEDS: TRANDATE 10 MG IV (13:17)
--- NOTE | 2023-11-18 13:38 | W.PN.URO.CBU ---
Today's Communication / Plan
-
Abx per ID
Voiding after valdivia removal this AM
Follow up with Dr. Busch pending biopsy results
Assessment / Plan
-
New right hydroureteronephrosis and pelvic soft tissue mass
Normal renal function
No right renal colic
ESBL UTI
S/P CYSTO/RIGHT URETEROSCOPY AND BX/STENT 11/15
---
pt stable
ID directing antibx- OR cx negative
When finished with current antibx course- would rec starting methenamine hippurate 1 gram bid to reduce chance of recurrent infx
Valdivia removed this AM and voiding without difficulty
Dr. Busch will contact pt's son with results
Diagnosis
-
Date of Service: November 18, 2023
-
Patient Diagnosis:
Right hydroureteronephrosis (new) with ureteral or periureteral soft tissue in upper pelvis
Encephalopathy/embolic shower to brain
Diarrhea/vomiting
ESBL UTI
Essentially normal renal function
s/p ureteroscopy/bx and stent 11/15
Subjective
-
valdivia removed
voiding without difficulty
Objective
-
Vital Signs
Temp Pulse Resp BP Pulse Ox
98 F 93 20 181/103 93
11/18/23 11:00 11/18/23 13:17 11/18/23 11:00 11/18/23 13:17 11/18/23 11:00
Intake and Output
11/17/23 11/18/23 11/19/23
06:59 06:59 06:59
Intake Total 1750 / 1750 480 / 480
Output Total 4525 / 4525 1400 / 1400 2350 / 2350
Balance -2775 / -2775 -920 / -920 -2350 / -2350
Intake:
Oral fluids 240 / 240 480 / 480
IV fluids (Total) 1490 / 1490
normosol 50 / 50
IV piggybacks
Output:
Urine, Valdivia 4525 / 4525 1400 / 1400
Urine, Voided 2350 / 2350
Laboratory Results
11/18/23 06:50
11/18/23 06:50
Physical Exam
-
General - well developed, well nourished, no acute distress
Chest - clear bilaterally
Abdomen - soft, non-tender
Skin - warm & dry with no rash
Neuro - AOx3, no motor deficits
--- NOTE | 2023-11-18 13:44 | W.PN.ID1 ---
Date of Service
Date of Service: November 18, 2023
Today's Communication
OR repeat Ucx neg
- Continue meropenem (d5 of 7)
Assessment / Plan
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
- 11/08 and 11/09 UA bland.
-11/10 UA 1+LE, 26-30WBC, Ucx 100K ESBL-Ecoli. CT: no renal perinephric stranding
-11/16/23 s/p right ureteroscopy/stent placement. + right ureter tumor biopsied
OR repeat Ucx neg
- Continue meropenem (d5 7)
# Embolic CVA
- NAYLA neg vege
- blood cx's negative
- For LINQ
# Confusion since 06/2023
- Syphilis serology negative
# Chronic diarrhea since 06/2023
- Of note, pt never had colonoscopy
- C. diff neg. O+P neg.
# Left thyroid mass
- Outpt workup
# Additional Past Medical History:
DM-II
COPD
Hypertension
HFpEF
DDD / Osteoporosis
Morbid Obesity BMI 44
Gout
GERD / PUD
diverticulitis
Chief Complaint
-: UTI
Subjective / Review of Systems
afebrile
bp stbale
without leukocytosis
cr stable
repeat culture negative
Vital Signs / Physical Exam
Vital Signs
Vital Signs
Temp Pulse Resp BP Pulse Ox
98 F 93 20 181/103 93
11/18/23 11:00 11/18/23 13:17 11/18/23 11:00 11/18/23 13:17 11/18/23 11:00
Physical Exam
Constitutional: No Acute Distress
Cardiovascular: Regular Rate and S1/S2; Negative Murmur or Rub
Pulmonary: Clear and Symmetric; Negative Wheezes or Rales
Gastrointestinal: Soft, Non Tender, Non Distended and Normal Bowel Sounds
Skin: Warm and Dry; Negative Rash or Jaundice
Objective Data
Lab Data
Lab Results
11/18/23 06:50
11/18/23 06:50
PT 12.9 Sec (11.4-14.6) 11/17/23 18:45
INR 0.99 11/17/23 18:45
APTT 28.1 Sec (23.4-35.0) 11/17/23 18:45
Estimated Creat Clear 71 ml/min 11/18/23 06:50
Lactic Acid 2.1 mmol/L (0.7-2.0) H 11/17/23 18:46
Total Bilirubin 0.4 mg/dl (0.2-1.3) 11/17/23 18:46
Total Bilirubin Cancelled 11/17/23 18:46
AST 25 U/L (14-36) 11/17/23 18:46
AST Cancelled 11/17/23 18:46
ALT 20 U/L (0-35) 11/17/23 18:46
ALT Cancelled 11/17/23 18:46
Alkaline Phosphatase 84 U/L (38-126) 11/17/23 18:46
Alkaline Phosphatase Cancelled 11/17/23 18:46
C-Reactive Protein 44.40 mg/L (0.0-10.00) H 11/17/23 18:46
Amylase 49 U/L (30-110) 11/17/23 18:46
Most recent labs reviewed.
Micro Results:
11/16/23 07:32 Urine Culture - Final
Urine NO GROWTH
11/10/23 15:26 Blood Culture - Final
Blood/Venous Coagulase neg. staphylococcus
Additional testing on request
Gram Stain - Final
11/11/23 12:08 Blood Culture - Final
Blood/Venous No Growth - Final Report
11/10/23 15:26 Blood Culture - Final
Blood/Venous No Growth - Final Report
11/12/23 11:52 Salmonella/Shigella Culture - Final
Feces/Stool No Salmonella, Shigella, Aeromonas or Plesiomonas species
isolated.
Campylobacter Culture - Final
No Campylobacter species isolated.
Shiga Toxin Test - Final
No E. coli Shiga Toxin 1 or 2 detected.
11/11/23 14:49 Urine Culture - Final
Urine Escherichia coli - ESBL
11/13/23 18:12 Cryptosporidium/Giardia - Final
Feces/Stool Negative for Cryptosporidium and/or Giardia Lamblia
antigens.
11/12/23 11:52 C. difficile GDH Antigen & Toxins - Final
Feces/Stool Negative for toxigenic C.difficile
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 Increased size of a simple
appearing cystic lesion in the right adnexa, now measuring up to 5.6 cm.
11/11/23 Brain MRI: Several (approximately 15) scattered tiny acute/subacute infarcts throughout the bilateral cerebral hemispheres as described, one of which in the left parietal lobe has a small amount of associated hemosiderin deposition/blood
products, corresponding with CT findings. Findings may be of embolic etiology. No definite dural venous sinus thrombosis/stenosis identified. No overt focal hemodynamically significant stenosis, aneurysm or occlusion.
--- NOTE | 2023-11-18 13:50 | W.PN.HOSP.TC ---
Today's Communication/Plan
-
IV Meropenem
appreciate consultants
eventual acute rehab
Assessment / Plan
Assessment / Plan
73-year-old female lives at home and gets help from sister. Sister recently was away on vacation was not able to get in touch with the patient which is unusual therefore checked on her upon returning home and found the patient was on the floor
covered in black vomitus. She is also confused. Patient is a poor historian. Son is at bedside he does not give me a good history either.
Son states that she has been confused since June or July when she was started on metformin which she states was not for diabetes but for elevated blood sugars. Then she was taken off of it because of diarrhea and also confusion. Her
confusion has not gotten better. He also states that she has been confused more lately. When asked if she has been taking and states patient states yes but again poor historian. Son states that she only takes Tylenol but he does not live with her.
11/11/23-Dr. Moore spoke to sister . Pt started getting confused as her rent was not being paid. and confusion with financial stuff. Sister asked her son to do her bills. She will come over and and help her. She was not going out of the house. She
didn't feel well Monday. Monday brother called and she sounded 'batty'. She stopped smoking 12 years ago . ' She was always a hippy . Doing drugs -marijuana, never taken care of herself'. Sister states that she has Tylenol by her bedside all the
time. Sister and patient's son also wanting her to be a DNR
MRI-several Scattered tiny acute/subacute infarcts bilateral cerebral hemispheres 1 of which is in the left parietal lobe with a small amount of hemosiderin deposition. Embolic. No definite dural venous sinus thrombosis or stenosis.
Confused
Patient is a little more organized today still confused
Cardiovascular system S1-S2 appreciated
Chest clear to auscultation decreased breath sounds at bases
Abdomen soft has some tenderness in the Right side and right CVA, also has pain left
Lower extremity no edema noted but noticed edema in left upper extremity where she has vascular access
Patient is able to move all extremities. Good peripheral strength
Echo 11/13/2023-normal biventricular size and systolic function. Ejection fraction 55 to 60%. Mild concentric LVH. Arctic sclerosis without stenosis. Trivial evaluation with fibrinous organization
A/P:
# Embolic stroke
-MRI with (about 15) scattered tiny acute/subacute ischemic infarcts thorugh bilateral cerebral hemispheres; left parietal lobe with small hemorraghic component
Likely has vascular dementia also has Acute/subacute strokes.
Neurosurgery evaluation appreciated
No subarachnoid bleeding noted on MRI
OK for ASA per neuro surgery
Continue aspirin and statin
Status post Linq on 11/13
Echo-NAYLA 11/14/23
MRA motion artifact. CUS ordered- '�Velocity profiles consistent with less than 50% bilateral internal carotid artery stenosis. Antegrade flow bilateral vertebral arteries.
PT OT and speech
Neurology
NIH scale and neurochecks
Physiatry eval -> eventual DC to inpatient rehab
#Pelvic mass with right side hydronephrosis, unclear etiology, concern for malignancy:
-Status post cystoscopy with an ureteroscopic and mass biopsy with ureteral stent on 11/15
-Follow-up biopsy--> can follow-up outpatient if and when medically ready
-Started on Flomax
-voiding trial today
# ESBL UTI
-appreciate ID
-continue IV Meropenem (day 5)
# Edema left upper extremity
-US without DVT
# Coffee-ground emesis
-Hg stable
-continue PPI
-risks EGD outweigh benefits, appreciate GI consult
# Reason for diarrhea on admission unclear.
Started after metformin in June and gotten better per son
Cultures are neg
Never had a colonoscopy
Remains off of metformin now
Added probiotics
Diarrhea resolved
# Hypertension-
Losartan changed to valsartan
Continue valsartan and up-titrate as needed
Continue Coreg 12.5 mg twice a day
Continue nifedipine 30 mg p.o. twice a day
Discussed with cardiology on 11/15 and they signed off
PRN Labetalol
Hypokalemia
-replete
# CHARLY
-resolved this AM
# Mild rhabdomyolysis-resolved
# Mild lactic acidosis-improved
#Large left thyroid lobe mass/nodule-needs an ultrasound and further workup as outpatient
Normal TSH
Son aware
# Back pain-lumbar x-rays noted. Also get thoracic spine x-ray.
Son does not want patient to take narcotics. I do not think tramadol is a good choice given her CVA.
Also she is recovering from acute kidney injury therefore NSAIDs held

# Diabetes history -hemoglobin A1c 5.5
# Chronic heart failure with preserved ejection fraction
Follows with Dr. Jourdan Moon
Patient is on Coreg, losartan as outpatient now valsartan
son thinks she was on Lasix at 1 point not on The med list now
EKG sinus tachycardia with PACs
Echo 01/18/2022-technically difficult study. Normal biventricular size and function without regional wall motion abnormalities no change since 2018
# Hyperlipidemia/atherosclerosis-continue statin
# GERD/PUD-PPI
# Asthma/COPD
Continue as needed albuterol, Spiriva or equivalent
# Gout-continue allopurinol
# History of perforated diverticulitis 2021
# Hypoalbuminemia
# Sleep apnea-noncompliant with CPAP
She is chronic hypoxic at bedside respiratory failure-prescribed home oxygen
She has O2 , 'never uses , just let the machine run ' per sister.
# Calcified uterine fibroids, cystic lesion in the right adnexa 5.6 cm which previously measured 4 cm
This was found in 2021 and outpatient [employer] follow-up recommended at that time
# Morbid Obesity-affects all aspects of care
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
Osteopenia
X-ray with arthritis changes
# Hepatic steatosis
# Hypoalbuminemia
# Cognitive dysfunction-looks like she has been gradually declining
Also now has CVA
# Ex-smoker
# DVT prophylaxis-SCDs
# DNR
Anticipated Discharge: > 48 hours
Subjective/Interval History
-
Date of Service: November 18, 2023
no new complaints, confused
Objective Data
-
Labs:
Laboratory Results
11/18/23
06:50
WBC 5.8
Hgb 12.1
Hct 35.9 L
Plt Count 252
Sodium 139
Potassium 3.3 L
Chloride 103
Carbon Dioxide 30
BUN 19 H
Creatinine 0.9
Glucose 97
Calcium 8.8
Vital Signs:
Vital Signs
Temp Pulse Resp BP Pulse Ox
98 F 93 20 181/103 93
11/18/23 11:00 11/18/23 13:17 11/18/23 11:00 11/18/23 13:17 11/18/23 11:00
I&O
11/17/23 11/18/23 11/19/23
06:59 06:59 06:59
Intake Total 1750 / 1750 480 / 480
Output Total 4525 / 4525 1400 / 1400 2350 / 2350
Balance -2775 / -2775 -920 / -920 -2350 / -2350
Review of Systems
-
History Source: Patient
All other systems: Reviewed and negative
Data Reviewed
-
Diagnostic Radiology: Report Reviewed by me
Labs: Labs Reviewed by me
[2023-11-18] MEDS: KCL 40 MEQ PO (14:23)
[2023-11-18] MEDS: LIPITOR 80 MG PO (17:05)
--- NOTE | 2023-11-18 17:35 | PTCARENOTE ---
Assumed care of pt from previous nurse. Pt with some discomfort to back, tylenol and lidocaine patches provided with positive results. Pt is on tele running nsr with pvc. Pt call casiano is within reach, pt rings jenniffer., bed alarm in place, will cont to
monitor.
--- NOTE | 2023-11-18 17:37 | PTCARENOTE ---
Pt [facility] is a 3.
[2023-11-19] VITALS (7 sets, daily range): BP systolic 124–158; BP diastolic 65–74; BMI 43.9
[2023-11-19] MEDS: MERREM 500 MG IV ×4 (05:36→21:28)
[2023-11-19] MEDS: STERILE WATER FOR INJECTION 10 ML IV ×4 (05:37→21:29)
[2023-11-19] MEDS: DIOVAN 240 MG PO (08:15)
[2023-11-19] MEDS: FLORASTOR 250 MG PO ×2 (08:16→19:59)
[2023-11-19] MEDS: PROTONIX 40 MG PO (08:16)
[2023-11-19] MEDS: PROCARDIA XL (EXTENDED RELEASE) 30 MG PO ×2 (08:16→20:10)
[2023-11-19] MEDS: LIDOCAINE 4% PATCH 1 PATCH TOPICAL ×2 (08:16→08:19)
[2023-11-19] MEDS: LOW STRENGTH ASPIRIN 81 MG PO (08:16)
[2023-11-19] MEDS: FLOMAX 0.400000000000000022 MG PO (08:16)
[2023-11-19] MEDS: ZYLOPRIM 300 MG PO (08:16)
[2023-11-19] MEDS: COREG 12.5 MG PO ×2 (08:16→20:10)
[2023-11-19] MEDS: SPIRIVA RESPIMAT 2.5 MCG 2 PUFF INH (08:17)
[2023-11-19] MEDS: DESENEX/MITRAZOL/ZEASORB 1 APPLIC TOPICAL ×2 (08:17→19:58)
--- NOTE | 2023-11-19 13:01 | W.PN.HOSP.TC ---
Today's Communication/Plan
-
IV Meropenem
team to update son tomorrow on exact timing of discharge
Assessment / Plan
Assessment / Plan
73-year-old female lives at home and gets help from sister. Sister recently was away on vacation was not able to get in touch with the patient which is unusual therefore checked on her upon returning home and found the patient was on the floor
covered in black vomitus. She is also confused. Patient is a poor historian. Son is at bedside he does not give me a good history either.
Son states that she has been confused since June or July when she was started on metformin which she states was not for diabetes but for elevated blood sugars. Then she was taken off of it because of diarrhea and also confusion. Her
confusion has not gotten better. He also states that she has been confused more lately. When asked if she has been taking and states patient states yes but again poor historian. Son states that she only takes Tylenol but he does not live with her.
11/11/23-Dr. Moore spoke to sister . Pt started getting confused as her rent was not being paid. and confusion with financial stuff. Sister asked her son to do her bills. She will come over and and help her. She was not going out of the house. She
didn't feel well Monday. Monday brother called and she sounded 'batty'. She stopped smoking 12 years ago . ' She was always a hippy . Doing drugs -marijuana, never taken care of herself'. Sister states that she has Tylenol by her bedside all the
time. Sister and patient's son also wanting her to be a DNR
MRI-several Scattered tiny acute/subacute infarcts bilateral cerebral hemispheres 1 of which is in the left parietal lobe with a small amount of hemosiderin deposition. Embolic. No definite dural venous sinus thrombosis or stenosis.
Exam:
Appears chronically ill
Patient is a little more organized today still confused
Cardiovascular system S1-S2 appreciated
Chest clear to auscultation decreased breath sounds at bases
Abdomen soft has some tenderness in the Right side and right CVA, also has pain left
Lower extremity no edema noted but noticed edema in left upper extremity where she has vascular access
Patient is able to move all extremities. Good peripheral strength
Echo 11/13/2023-normal biventricular size and systolic function. Ejection fraction 55 to 60%. Mild concentric LVH. Arctic sclerosis without stenosis. Trivial evaluation with fibrinous organization
A/P:
# Embolic stroke
-MRI with (about 15) scattered tiny acute/subacute ischemic infarcts thorugh bilateral cerebral hemispheres; left parietal lobe with small hemorraghic component
Likely has vascular dementia also has Acute/subacute strokes.
Neurosurgery evaluation appreciated
No subarachnoid bleeding noted on MRI
OK for ASA per neuro surgery
Continue aspirin and statin
Status post Linq on 11/13
Echo-NAYLA 11/14/23
MRA motion artifact. CUS ordered- '�Velocity profiles consistent with less than 50% bilateral internal carotid artery stenosis. Antegrade flow bilateral vertebral arteries.
PT OT and speech
Neurology
NIH scale and neurochecks
Physiatry eval -> eventual DC to inpatient rehab
#Pelvic mass with right side hydronephrosis, unclear etiology, concern for malignancy:
-Status post cystoscopy with an ureteroscopic and mass biopsy with ureteral stent on 11/15
-Follow-up biopsy--> can follow-up outpatient if and when medically ready
-Started on Flomax
-voiding trial today
# ESBL UTI
-appreciate ID
-continue IV Meropenem (day 6)
-expect DC on Monday after completes 7 days (team to update son tomorrow with timing of discharge so that he can take off from work).
# Edema left upper extremity
-US without DVT
# Coffee-ground emesis
-Hg stable
-continue PPI
-risks EGD outweigh benefits, appreciate GI consult
# Reason for diarrhea on admission unclear.
Started after metformin in June and gotten better per son
Cultures are neg
Never had a colonoscopy
Remains off of metformin now
Added probiotics
Diarrhea resolved
# Hypertension-
Losartan changed to valsartan
Continue valsartan and up-titrate as needed
Continue Coreg 12.5 mg twice a day
Continue nifedipine 30 mg p.o. twice a day
Discussed with cardiology on 11/15 and they signed off
PRN Labetalol
Hypokalemia
-replete
# CHARLY
-resolved this AM
# Mild rhabdomyolysis-resolved
# Mild lactic acidosis-improved
#Large left thyroid lobe mass/nodule-needs an ultrasound and further workup as outpatient
Normal TSH
Son aware
# Back pain-lumbar x-rays noted. Also get thoracic spine x-ray.
Son does not want patient to take narcotics. I do not think tramadol is a good choice given her CVA.
Also she is recovering from acute kidney injury therefore NSAIDs held

# Diabetes history -hemoglobin A1c 5.5
# Chronic heart failure with preserved ejection fraction
Follows with Dr. Jourdan Moon
Patient is on Coreg, losartan as outpatient now valsartan
son thinks she was on Lasix at 1 point not on The med list now
EKG sinus tachycardia with PACs
Echo 01/18/2022-technically difficult study. Normal biventricular size and function without regional wall motion abnormalities no change since 2018
# Hyperlipidemia/atherosclerosis-continue statin
# GERD/PUD-PPI
# Asthma/COPD
Continue as needed albuterol, Spiriva or equivalent
# Gout-continue allopurinol
# History of perforated diverticulitis 2021
# Hypoalbuminemia
# Sleep apnea-noncompliant with CPAP
She is chronic hypoxic at bedside respiratory failure-prescribed home oxygen
She has O2 , 'never uses , just let the machine run ' per sister.
# Calcified uterine fibroids, cystic lesion in the right adnexa 5.6 cm which previously measured 4 cm
This was found in 2021 and outpatient [employer] follow-up recommended at that time
# Morbid Obesity-affects all aspects of care
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
Osteopenia
X-ray with arthritis changes
# Hepatic steatosis
# Hypoalbuminemia
# Cognitive dysfunction-looks like she has been gradually declining
Also now has CVA
# Ex-smoker
# DVT prophylaxis-SCDs
# DNR
Anticipated Discharge: 24 - 48 hours
Subjective/Interval History
-
Date of Service: November 19, 2023
per son she is more alert but fatigued, getting stronger
Objective Data
-
Labs:
Laboratory Results
11/19/23
12:52
Sodium Pending
Potassium Pending
Chloride Pending
Carbon Dioxide Pending
BUN Pending
Creatinine Pending
Glucose Pending
Calcium Pending
Vital Signs:
Vital Signs
Temp Pulse Resp BP Pulse Ox
97.8 F 74 20 136/69 98
11/19/23 11:00 11/19/23 11:00 11/19/23 11:00 11/19/23 11:00 11/19/23 11:00
I&O
11/18/23 11/19/23 11/20/23
06:59 06:59 06:59
Intake Total 480 / 480 961 / 961
Output Total 1400 / 1400 3100 / 3100
Balance -920 / -920 -2139 / -2139
Review of Systems
-
History Source: Patient
All other systems: Reviewed and negative
Data Reviewed
-
Diagnostic Radiology: Report Reviewed by me
Labs: Labs Reviewed by me
[2023-11-19 13:36] LABS: Blood Urea Nitrogen 19 mg/dl (7-17); Calcium 8.9 mg/dl (8.4-10.2); Carbon Dioxide 30 mmol/L (22-30); Chloride 100 mmol/L (98-107); Estimated Creatinine Clearance 64 ml/min; Glucose 100 mg/dl (70-99); Potassium 3.4 mmol/L (3.5-5.1); Sodium 136 mmol/L (135-145); eGFR 59.12
[2023-11-19] MEDS: LIPITOR 80 MG PO (18:00)
[2023-11-19 19:01] LABS: Vitamin B1, Whole Blood 107 nmol/L (70-180)
[2023-11-19] MEDS: TYLENOL 1000 MG PO (20:09)
[2023-11-20] VITALS (8 sets, daily range): BP systolic 125–165; BP diastolic 68–87; O2SAT 96–97; BMI 39.9
[2023-11-20] MEDS: MERREM 500 MG IV ×4 (04:57→21:22)
[2023-11-20] MEDS: STERILE WATER FOR INJECTION 10 ML IV ×4 (04:57→21:22)
[2023-11-20] MEDS: PROCARDIA XL (EXTENDED RELEASE) 30 MG PO ×2 (08:48→19:51)
[2023-11-20] MEDS: FLORASTOR 250 MG PO ×2 (08:49→19:48)
[2023-11-20] MEDS: PROTONIX 40 MG PO (08:49)
[2023-11-20] MEDS: FLOMAX 0.400000000000000022 MG PO (08:49)
[2023-11-20] MEDS: DIOVAN 240 MG PO (08:49)
[2023-11-20] MEDS: LOW STRENGTH ASPIRIN 81 MG PO (08:49)
[2023-11-20] MEDS: ZYLOPRIM 300 MG PO (08:49)
[2023-11-20] MEDS: COREG 12.5 MG PO ×2 (08:49→19:48)
[2023-11-20] MEDS: LIDOCAINE 4% PATCH TOPICAL ×2 (08:51→08:52)
[2023-11-20] MEDS: SPIRIVA RESPIMAT 2.5 MCG 2 PUFF INH (08:51)
[2023-11-20] MEDS: DESENEX/MITRAZOL/ZEASORB 1 APPLIC TOPICAL ×2 (08:52→19:48)
--- NOTE | 2023-11-20 11:16 | WOUNDNOTE ---
ABIGAIL RN NOTE: Reported stage 2 PI on Sacrum and buttocks. Assessed along with nurse who assisted with turning patient. Patient has tiny dry patch of pink skin on gluteal cleft, suspect from MASD rather than true pressure injury. Sacrum and buttocks
are intact. Patient states she can ambulate to BR with assist. Air overlay in use with adequate inflation. Recommend barrier cream to gluteal cleft daily and prn soilage, Nurse aware.
--- NOTE | 2023-11-20 14:58 | CM ---
Chart reviewed and plan is acute rehab at [facility], field case manager spoke with Aliya in admissions and Tobi on Monday and they will accept patient, field case manager to proceed with obtaining Auth [facility] [id number], NPI
for Dr. Francesco Guerin, [id number]. talent acquisition manager spoke with patient and patient's son this morning and patient's sister and provided updates.
[facility] [address] [place] [address] pending approval from insurance.
--- NOTE | 2023-11-20 15:44 | W.PN.HOSP.TC ---
Today's Communication/Plan
-
Patient does not have a Hilario catheter.
Finishing antibiotic today
Hopefully discharge tomorrow
Assessment / Plan
Assessment / Plan
73-year-old female lives at home and gets help from sister. Sister recently was away on vacation was not able to get in touch with the patient which is unusual therefore checked on her upon returning home and found the patient was on the floor
covered in black vomitus. She is also confused. Patient is a poor historian. Son is at bedside he does not give me a good history either.
Son states that she has been confused since June or July when she was started on metformin which she states was not for diabetes but for elevated blood sugars. Then she was taken off of it because of diarrhea and also confusion. Her
confusion has not gotten better. He also states that she has been confused more lately. When asked if she has been taking and states patient states yes but again poor historian. Son states that she only takes Tylenol but he does not live with her.
11/11/23-Dr. Moore spoke to sister . Pt started getting confused as her rent was not being paid. and confusion with financial stuff. Sister asked her son to do her bills. She will come over and and help her. She was not going out of the house. She
didn't feel well Monday. Monday brother called and she sounded 'batty'. She stopped smoking 12 years ago . ' She was always a hippy . Doing drugs -marijuana, never taken care of herself'. Sister states that she has Tylenol by her bedside all the
time. Sister and patient's son also wanting her to be a DNR
MRI-several Scattered tiny acute/subacute infarcts bilateral cerebral hemispheres 1 of which is in the left parietal lobe with a small amount of hemosiderin deposition. Embolic. No definite dural venous sinus thrombosis or stenosis.
Patient is a little more organized today still confused
Cardiovascular system S1-S2 appreciated
Chest clear to auscultation decreased breath sounds at bases
Abd Soft NT
Patient is able to move all extremities. Good peripheral strength
Echo 11/13/2023-normal biventricular size and systolic function. Ejection fraction 55 to 60%. Mild concentric LVH. Arctic sclerosis without stenosis. Trivial evaluation with fibrinous organization
A/P:
# Embolic stroke
-MRI with (about 15) scattered tiny acute/subacute ischemic infarcts thorugh bilateral cerebral hemispheres; left parietal lobe with small hemorraghic component
Likely has vascular dementia also has Acute/subacute strokes.
Neurosurgery evaluation appreciated
No subarachnoid bleeding noted on MRI
OK for ASA per neuro surgery
Continue aspirin and statin
Status post Linq on 11/13
Echo-NAYLA 11/14/23
MRA motion artifact. CUS ordered- '�Velocity profiles consistent with less than 50% bilateral internal carotid artery stenosis. Antegrade flow bilateral vertebral arteries.
PT OT and speech
Physiatry eval -> eventual DC to inpatient rehab
#Pelvic mass with right side hydronephrosis, unclear etiology, concern for malignancy:
-Status post cystoscopy with an ureteroscopic and mass biopsy with ureteral stent on 11/15
-Follow-up biopsy--> can follow-up outpatient if and when medically ready
-Started on Flomax
# ESBL UTI
-Appreciate ID
-Continue IV Meropenem (day 7)
-expect DC on Monday after completes 7 days
# Edema left upper extremity
-US without DVT
# Coffee-ground emesis
-Hg stable
-continue PPI
-EGD as OP
# Reason for diarrhea on admission unclear.
Started after metformin in June and gotten better per son
Cultures are neg
Never had a colonoscopy
Remains off of metformin now
Added probiotics
Diarrhea resolved
Colonoscopy as OP
# Hypertension-
Losartan changed to valsartan
Continue valsartan and up-titrate as needed
Continue Coreg 12.5 mg twice a day
Continue nifedipine 30 mg p.o. twice a day
# Atelectasis bilateral lower lungs-incentive spirometry
Patient not on any oxygen
Repeat chest x-ray as outpatient
Hypokalemia
-replete prn
# CHARLY
-resolved
# Mild rhabdomyolysis-resolved
# Mild lactic acidosis-improved
#Large left thyroid lobe mass/nodule-needs an ultrasound and further workup as outpatient
Normal TSH
Son aware
# Back pain-lumbar x-rays noted. Also got thoracic spine x-ray.
Son does not want patient to take narcotics. I do not think tramadol is a good choice given her CVA.
Also she is recovering from acute kidney injury therefore NSAIDs held

# Diabetes history -hemoglobin A1c 5.5
# Chronic heart failure with preserved ejection fraction
Follows with Dr. Jourdan Moon
Patient is on Coreg, losartan as outpatient now valsartan
son thinks she was on Lasix at 1 point not on The med list now
EKG sinus tachycardia with PACs
Echo 01/18/2022-technically difficult study. Normal biventricular size and function without regional wall motion abnormalities no change since 2018
# Hyperlipidemia/atherosclerosis-continue statin
# GERD/PUD-PPI
# Asthma/COPD
Continue as needed albuterol, Spiriva or equivalent
# Gout-continue allopurinol
# History of perforated diverticulitis 2021
# Hypoalbuminemia
# Sleep apnea-noncompliant with CPAP
She is chronic hypoxic at bedside respiratory failure-prescribed home oxygen
She has O2 , 'never uses , just let the machine run ' per sister.
# Calcified uterine fibroids, cystic lesion in the right adnexa 5.6 cm which previously measured 4 cm
This was found in 2021 and outpatient GENETICS NURSE follow-up recommended at that time
# Morbid Obesity-affects all aspects of care
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
Osteopenia
X-ray with arthritis changes
# Hepatic steatosis
# Hypoalbuminemia
# Cognitive dysfunction-looks like she has been gradually declining
Also now has CVA
# Ex-smoker
# DVT prophylaxis-SCDs
# DNR
D/W RN
D/W Case management
Called Son and left message
Anticipated Discharge: Within 24 hours
Subjective/Interval History
-
Date of Service: November 20, 2023
Objective Data
-
Vital Signs:
Vital Signs
Temp Pulse Resp BP Pulse Ox
97.6 F 76 20 144/68 97
11/20/23 12:02 11/20/23 12:02 11/20/23 12:02 11/20/23 12:02 11/20/23 12:02
I&O
11/19/23 11/20/23 11/21/23
06:59 06:59 06:59
Intake Total 961 / 961 1680 / 1680 240 / 240
Output Total 3100 / 3100
Balance -2139 / -2139 1680 / 1680 240 / 240
--- NOTE | 2023-11-20 16:04 | W.PN.ID1 ---
Date of Service
Date of Service: November 20, 2023
Today's Communication
Complete course of meropenem today for
Assessment / Plan
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
- 11/08 and 11/09 UA bland.
-11/10 UA 1+LE, 26-30WBC, Ucx 100K ESBL-Ecoli. CT: no renal perinephric stranding
-11/16/23 s/p right ureteroscopy/stent placement. + right ureter tumor biopsied
OR repeat Ucx neg
- Completing meropenem (d#7 of 7) today. Thereafter, observe off antibiotics.
# Embolic CVA
- NAYLA neg vege
- blood cx's negative
- For LINQ
# Confusion since 06/2023
- Syphilis serology negative
# Chronic diarrhea since 06/2023
- Of note, pt never had colonoscopy
- C. diff neg. O+P neg.
# Left thyroid mass
- Outpt workup
# Additional Past Medical History:
DM-II
COPD
Hypertension
HFpEF
DDD / Osteoporosis
Morbid Obesity BMI 44
Gout
GERD / PUD
diverticulitis
Chief Complaint
-: UTI
Subjective / Review of Systems
Review of Systems: No Fever and No Chills
Vital Signs / Physical Exam
Vital Signs
Vital Signs
Temp Pulse Resp BP Pulse Ox
97.6 F 76 20 144/68 97
11/20/23 12:02 11/20/23 12:02 11/20/23 12:02 11/20/23 12:02 11/20/23 12:02
Physical Exam
Constitutional: Comfortable and Non-toxic
Eyes: No Conjunctival Hemorrhage; Negative Sclera Anicteric
Cardiovascular: S1/S2; Negative S3/S4
Pulmonary: Clear and Non Labored; Negative Wheezes
Gastrointestinal: Soft and Non Tender
Objective Data
Lab Data
PT 12.9 Sec (11.4-14.6) 11/17/23 18:45
INR 0.99 11/17/23 18:45
APTT 28.1 Sec (23.4-35.0) 11/17/23 18:45
Estimated Creat Clear 64 ml/min 11/19/23 13:15
Lactic Acid 2.1 mmol/L (0.7-2.0) H 11/17/23 18:46
Total Bilirubin 0.4 mg/dl (0.2-1.3) 11/17/23 18:46
Total Bilirubin Cancelled 11/17/23 18:46
AST 25 U/L (14-36) 11/17/23 18:46
AST Cancelled 11/17/23 18:46
ALT 20 U/L (0-35) 11/17/23 18:46
ALT Cancelled 11/17/23 18:46
Alkaline Phosphatase 84 U/L (38-126) 11/17/23 18:46
Alkaline Phosphatase Cancelled 11/17/23 18:46
C-Reactive Protein 44.40 mg/L (0.0-10.00) H 11/17/23 18:46
Amylase 49 U/L (30-110) 11/17/23 18:46
Most recent labs reviewed.
Micro Results:
11/16/23 07:32 Urine Culture - Final
Urine NO GROWTH
11/10/23 15:26 Blood Culture - Final
Blood/Venous Coagulase neg. staphylococcus
Additional testing on request
Gram Stain - Final
11/11/23 12:08 Blood Culture - Final
Blood/Venous No Growth - Final Report
11/10/23 15:26 Blood Culture - Final
Blood/Venous No Growth - Final Report
11/12/23 11:52 Salmonella/Shigella Culture - Final
Feces/Stool No Salmonella, Shigella, Aeromonas or Plesiomonas species
isolated.
Campylobacter Culture - Final
No Campylobacter species isolated.
Shiga Toxin Test - Final
No E. coli Shiga Toxin 1 or 2 detected.
11/11/23 14:49 Urine Culture - Final
Urine Escherichia coli - ESBL
11/13/23 18:12 Cryptosporidium/Giardia - Final
Feces/Stool Negative for Cryptosporidium and/or Giardia Lamblia
antigens.
11/12/23 11:52 C. difficile GDH Antigen & Toxins - Final
Feces/Stool Negative for toxigenic C.difficile
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 Increased size of a simple
appearing cystic lesion in the right adnexa, now measuring up to 5.6 cm.
11/11/23 Brain MRI: Several (approximately 15) scattered tiny acute/subacute infarcts throughout the bilateral cerebral hemispheres as described, one of which in the left parietal lobe has a small amount of associated hemosiderin deposition/blood
products, corresponding with CT findings. Findings may be of embolic etiology. No definite dural venous sinus thrombosis/stenosis identified. No overt focal hemodynamically significant stenosis, aneurysm or occlusion.
[2023-11-20 16:24] LABS: Hematocrit 35.4 % (37.0-47.0); Hemoglobin 11.9 g/dL (12.0-16.0); Mean Corp Hgb Conc. 33.6 g/dL (33.0-37.0); Mean Corpuscular Hgb 31.4 pg (27.0-31.0); Mean Corpuscular Volume 93.4 fL (81.0-99.0); Mean Platelet Volume 9.6 fL (7.4-10.4); Platelet Count 225 10^3/uL (130-400); Red Blood Cell Count 3.79 10^6/uL (4.20-5.40); Red Cell Dist. Width 14.2 % (11.5-14.5); White Blood Cell Count 5.9 10^3/uL (4.8-10.8)
[2023-11-20 16:40] LABS: Blood Urea Nitrogen 17 mg/dl (7-17); Calcium 9.2 mg/dl (8.4-10.2); Carbon Dioxide 32 mmol/L (22-30); Chloride 99 mmol/L (98-107); Estimated Creatinine Clearance 76 ml/min; Glucose 107 mg/dl (70-99); Potassium 3.5 mmol/L (3.5-5.1); Sodium 137 mmol/L (135-145); eGFR > 60.00
[2023-11-20] MEDS: LIPITOR 80 MG PO (17:07)
[2023-11-21 03:00] VITALS: BP 120/62
[2023-11-21 06:00] VITALS: BMI 39.8
[2023-11-21 07:45] VITALS: BP 146/65
[2023-11-21] MEDS: SPIRIVA RESPIMAT 2.5 MCG 2 PUFF INH (08:09)
[2023-11-21] MEDS: LIDOCAINE 4% PATCH 1 PATCH TOPICAL ×2 (08:54)
[2023-11-21] MEDS: LOW STRENGTH ASPIRIN 81 MG PO (08:55)
[2023-11-21] MEDS: ZYLOPRIM 300 MG PO (08:55)
[2023-11-21] MEDS: PROCARDIA XL (EXTENDED RELEASE) 30 MG PO (08:55)
[2023-11-21] MEDS: DIOVAN 240 MG PO (08:55)
[2023-11-21] MEDS: COREG 12.5 MG PO (08:55)
[2023-11-21] MEDS: FLOMAX 0.400000000000000022 MG PO (08:55)
[2023-11-21] MEDS: FLORASTOR 250 MG PO (08:55)
[2023-11-21] MEDS: PROTONIX 40 MG PO (08:55)
[2023-11-21] MEDS: DESENEX/MITRAZOL/ZEASORB 1 APPLIC TOPICAL (08:56)
--- NOTE | 2023-11-21 10:03 | CM ---
Addendum entered by Tess Osorio 11/21/23 13:29:
manager assessment received a call from Ismael at [facility] ([facility]) and patient has been approved for 5 days acute rehab at [place] [id number], Auth provided to Bettina in admissions at
[place].
Auth ref # [id number] 5 days acute to 11/27/23 .
[facility]
[address] [place] [address]
[facility] [id number],
Report [phone]

Original Note:
manager assessment reached out to patient's insurance for Auth for acute rehab at [facility], [address] [place] [address], [place] [id number].
Plan; Waiting on Auth from patient's insurance, son updated.
[2023-11-21 11:25] VITALS: BP 123/54
--- NOTE | 2023-11-21 12:14 | W.PN.HOSP.TC ---
Today's Communication/Plan
-
Discharge
Assessment / Plan
Assessment / Plan
73-year-old female lives at home and gets help from sister. Sister recently was away on vacation was not able to get in touch with the patient which is unusual therefore checked on her upon returning home and found the patient was on the floor
covered in black vomitus. She is also confused. Patient is a poor historian. Son is at bedside he does not give me a good history either.
Son states that she has been confused since June or July when she was started on metformin which she states was not for diabetes but for elevated blood sugars. Then she was taken off of it because of diarrhea and also confusion. Her
confusion has not gotten better. He also states that she has been confused more lately. When asked if she has been taking and states patient states yes but again poor historian. Son states that she only takes Tylenol but he does not live with her.
11/11/23-Dr. Moore spoke to sister . Pt started getting confused as her rent was not being paid. and confusion with financial stuff. Sister asked her son to do her bills. She will come over and and help her. She was not going out of the house. She
didn't feel well Monday. Monday brother called and she sounded 'batty'. She stopped smoking 12 years ago . ' She was always a hippy . Doing drugs -marijuana, never taken care of herself'. Sister states that she has Tylenol by her bedside all the
time. Sister and patient's son also wanting her to be a DNR
MRI-several Scattered tiny acute/subacute infarcts bilateral cerebral hemispheres 1 of which is in the left parietal lobe with a small amount of hemosiderin deposition. Embolic. No definite dural venous sinus thrombosis or stenosis.
Patient is a little more organized today still confused
Cardiovascular system S1-S2 appreciated
Chest clear to auscultation decreased breath sounds at bases
Abd Soft NT
Patient is able to move all extremities. Good peripheral strength
Echo 11/13/2023-normal biventricular size and systolic function. Ejection fraction 55 to 60%. Mild concentric LVH. Arctic sclerosis without stenosis. Trivial evaluation with fibrinous organization
A/P:
# Embolic stroke
-MRI with (about 15) scattered tiny acute/subacute ischemic infarcts thorugh bilateral cerebral hemispheres; left parietal lobe with small hemorraghic component
Likely has vascular dementia also has Acute/subacute strokes.
Neurosurgery evaluation appreciated
No subarachnoid bleeding noted on MRI
OK for ASA per neuro surgery
Continue aspirin and statin
Status post Linq on 11/13
Echo-NAYLA 11/14/23
MRA motion artifact. CUS ordered- '�Velocity profiles consistent with less than 50% bilateral internal carotid artery stenosis. Antegrade flow bilateral vertebral arteries.
PT OT and speech
#Pelvic mass with right side hydronephrosis, unclear etiology, concern for malignancy:
-Status post cystoscopy with an ureteroscopic and mass biopsy with ureteral stent on 11/15
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
- WILL INFORM THE SON TOMORROW AND DISCUSS THE PLAN. (I did not discuss the results with pt/son)
-Started on Flomax
# ESBL UTI
-Appreciate ID
-Completed 7 days of Meropenem.
# Edema left upper extremity
-US without DVT
# Coffee-ground emesis
-Hg stable
-continue PPI
-EGD as OP
# Reason for diarrhea on admission unclear.
Started after metformin in June and gotten better per son
Cultures are neg
Never had a colonoscopy
Remains off of metformin now
Added probiotics
Diarrhea resolved
Colonoscopy as OP
# Hypertension-
Losartan changed to valsartan
Continue valsartan and up-titrate as needed
Continue Coreg 12.5 mg twice a day
Continue nifedipine 30 mg p.o. twice a day
# Atelectasis bilateral lower lungs-incentive spirometry
Patient not on any oxygen
Repeat chest x-ray as outpatient
IS encouraged
Hypokalemia
-replete prn
# CHARLY
-resolved
# Mild rhabdomyolysis-resolved
# Mild lactic acidosis-improved
#Large left thyroid lobe mass/nodule-needs an ultrasound and further workup as outpatient
Normal TSH
Son aware
# Back pain-lumbar x-rays noted. Also got thoracic spine x-ray.
Son does not want patient to take narcotics. I do not think tramadol is a good choice given her CVA.
Also she is recovering from acute kidney injury therefore NSAIDs held

# Diabetes history -hemoglobin A1c 5.5
# Chronic heart failure with preserved ejection fraction
Follows with Dr. Jourdan Moon
Patient is on Coreg, losartan as outpatient now valsartan
son thinks she was on Lasix at 1 point not on The med list now
EKG sinus tachycardia with PACs
Echo 01/18/2022-technically difficult study. Normal biventricular size and function without regional wall motion abnormalities no change since 2018
# Hyperlipidemia/atherosclerosis-continue statin
# GERD/PUD-PPI
# Asthma/COPD
Continue as needed albuterol, Spiriva or equivalent
# Gout-continue allopurinol
# History of perforated diverticulitis 2021
# Hypoalbuminemia
# Sleep apnea-noncompliant with CPAP
She is chronic hypoxic at bedside respiratory failure-prescribed home oxygen
She has O2 , 'never uses , just let the machine run ' per sister.
# Calcified uterine fibroids, cystic lesion in the right adnexa 5.6 cm which previously measured 4 cm
This was found in 2021 and outpatient CONFERENCE ASSISTANT follow-up recommended at that time
Son aware about the Need for Follow up
# Morbid Obesity-affects all aspects of care
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
Osteopenia
X-ray with arthritis changes
# Hepatic steatosis
# Hypoalbuminemia
# Cognitive dysfunction-looks like she has been gradually declining
Also now has CVA
# Ex-smoker
# DVT prophylaxis-SCDs
# DNR
D/W RN
D/W Case management
Discussed with son at bed side
D/W Urology.
Discharge time 38 min
Anticipated Discharge: Today
Subjective/Interval History
-
Date of Service: November 21, 2023
Objective Data
-
Vital Signs:
Vital Signs
Temp Pulse Resp BP Pulse Ox
97.9 F 76 18 123/54 98
11/21/23 11:25 11/21/23 11:25 11/21/23 11:25 11/21/23 11:25 11/21/23 11:25
I&O
11/20/23 11/21/23 11/22/23
06:59 06:59 06:59
Intake Total 1680 / 1680 1440 / 1440
Balance 1680 / 1680 1440 / 1440
--- NOTE | 2023-11-21 12:41 | W.PN.ID1 ---
Date of Service
Date of Service: November 21, 2023
Today's Communication
Observe off abx.
Assessment / Plan
# Right obstructive uropathy, due to ureteral neoplasm
- 11/08 and 11/09 UA bland.
-11/10 UA 1+LE, 26-30WBC, Ucx 100K ESBL-Ecoli. CT: no renal perinephric stranding
-11/16/23 s/p right ureteroscopy/stent placement.
OR repeat Ucx neg
- Completed 7d meropenem on 11/20/23.
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
Son is now aware. I informed him he will be expecting to hear from urologist, Dr. Busch, to discuss plans.
# Embolic CVA
- NAYLA neg vege
- blood cx's negative
- s/p LINQ
# Confusion since 06/2023
- Syphilis serology negative
# Chronic diarrhea since 06/2023
- Of note, pt never had colonoscopy
- C. diff neg. O+P neg.
# Left thyroid mass
- Outpt workup
# Additional Past Medical History:
DM-II
COPD
Hypertension
HFpEF
DDD / Osteoporosis
Morbid Obesity BMI 44
Gout
GERD / PUD
diverticulitis
Chief Complaint
-: UTI
Subjective / Review of Systems
Pt wo complaints. Son at bedside.
Vital Signs / Physical Exam
Vital Signs
Vital Signs
Temp Pulse Resp BP Pulse Ox
97.9 F 76 18 123/54 98
11/21/23 11:25 11/21/23 11:25 11/21/23 11:25 11/21/23 11:25 11/21/23 11:25
Physical Exam
Constitutional: No Acute Distress and Comfortable
Gastrointestinal: Soft, Non Tender and Non Distended
Genito-Urinary: Negative Hilario or CVA Tenderness
Neurological: Awake and Alert
Objective Data
Lab Data
Lab Results
11/20/23 16:15
11/20/23 16:15
PT 12.9 Sec (11.4-14.6) 11/17/23 18:45
INR 0.99 11/17/23 18:45
APTT 28.1 Sec (23.4-35.0) 11/17/23 18:45
Estimated Creat Clear 76 ml/min 11/20/23 16:15
Lactic Acid 2.1 mmol/L (0.7-2.0) H 11/17/23 18:46
Total Bilirubin 0.4 mg/dl (0.2-1.3) 11/17/23 18:46
Total Bilirubin Cancelled 11/17/23 18:46
AST 25 U/L (14-36) 11/17/23 18:46
AST Cancelled 11/17/23 18:46
ALT 20 U/L (0-35) 11/17/23 18:46
ALT Cancelled 11/17/23 18:46
Alkaline Phosphatase 84 U/L (38-126) 11/17/23 18:46
Alkaline Phosphatase Cancelled 11/17/23 18:46
C-Reactive Protein 44.40 mg/L (0.0-10.00) H 11/17/23 18:46
Amylase 49 U/L (30-110) 11/17/23 18:46
Most recent labs reviewed.
Micro Results:
11/16/23 07:32 Urine Culture - Final
Urine NO GROWTH
11/10/23 15:26 Blood Culture - Final
Blood/Venous Coagulase neg. staphylococcus
Additional testing on request
Gram Stain - Final
11/11/23 12:08 Blood Culture - Final
Blood/Venous No Growth - Final Report
11/10/23 15:26 Blood Culture - Final
Blood/Venous No Growth - Final Report
11/12/23 11:52 Salmonella/Shigella Culture - Final
Feces/Stool No Salmonella, Shigella, Aeromonas or Plesiomonas species
isolated.
Campylobacter Culture - Final
No Campylobacter species isolated.
Shiga Toxin Test - Final
No E. coli Shiga Toxin 1 or 2 detected.
11/11/23 14:49 Urine Culture - Final
Urine Escherichia coli - ESBL
11/13/23 18:12 Cryptosporidium/Giardia - Final
Feces/Stool Negative for Cryptosporidium and/or Giardia Lamblia
antigens.
11/12/23 11:52 C. difficile GDH Antigen & Toxins - Final
Feces/Stool Negative for toxigenic C.difficile
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 Increased size of a simple
appearing cystic lesion in the right adnexa, now measuring up to 5.6 cm.
11/11/23 Brain MRI: Several (approximately 15) scattered tiny acute/subacute infarcts throughout the bilateral cerebral hemispheres as described, one of which in the left parietal lobe has a small amount of associated hemosiderin deposition/blood
products, corresponding with CT findings. Findings may be of embolic etiology. No definite dural venous sinus thrombosis/stenosis identified. No overt focal hemodynamically significant stenosis, aneurysm or occlusion.
Care Review
Plan reviewed with: Physician (Dr. Moore)
--- NOTE | 2023-11-21 13:09 | W.DS.TRANS ---
Addendum entered and electronically signed by Nicole Moore MD 11/21/23 17:05:
Dictation- [id number]
Original Note:
DC Summary - [place]
-
Discharge Instructions:
Discharge Diagnosis/Procedures Stroke, Linq device implant pelvic mass with
right-sided hydronephrosis, ESBL UTI, coffee-
ground emesis, chronic diarrhea, hypertension,
atelectasis of the lungs, low potassium, acute
kidney injury, left thyroid lobe mass/nodule,
back pain arthritis of lumbar and thoracic spine
, diet-controlled diabetes, chronic heart
failure with preserved ejection fraction,
hyperlipidemia, atherosclerosis, GERD, asthma/
COPD, gout, diverticulosis, sleep apnea not on
CPAP, cystic lesion in the right adnexa 5.6 cm,
obesity, hepatic steatosis, cognitive
dysfunction, ex-smoker
Diet 2 Gram Sodium,Restrict fluids to 64 oz
Activity As tolerated,With assistance
Driving Restrictions No driving
Other Services PT,OT
Specialty Instructions Weigh Daily
Instructions:
Stand-Alone Forms: DC Inst - Implanted Device
Changes to Home Medications: Yes
Discharge Medications:
DC Medications w/original date entered in [email or web address]
allopurinol 300 mg tablet 300 mg PO DAILY Gout 09/20/21
carvedilol 12.5 mg tablet 12.5 mg PO BID Heart disease/condition 09/20/21
tiotropium bromide 2.5 mcg/actuation mist for inhalation (Spiriva Respimat) 2 puff inhalation R DAILY Lung/breathing issues 09/20/21
albuterol sulfate 90 mcg/actuation aerosol inhaler 2 puff inhalation R Q4 PRN sob/wheezing 11/09/23
acetaminophen 500 mg tablet (Tylenol Extra Strength) 1,000 mg PO Q6HPRN PRN pain #0 tabs 11/21/23
aspirin 81 mg chewable tablet 81 mg PO DAILY Blood clot prevention/tx #0 tabs 11/21/23
atorvastatin 80 mg tablet 80 mg PO QPM High cholesterol #0 tabs 11/21/23
ipratropium 0.5 mg-albuterol 3 mg (2.5 mg base)/3 mL nebulization soln 3 ml inhalation R Q4HPRN PRN shortness of breath #0 mL 11/21/23
lidocaine 4 % topical patch 2 patch topical DAILY back pain #0 ea 11/21/23
nifedipine 30 mg tablet,extended release 30 mg PO BID Blood pressure #0 tabs 11/21/23
pantoprazole 40 mg tablet,delayed release 40 mg PO DAILY Gastrointestinal issue #0 tabs 11/21/23
tamsulosin 0.4 mg capsule 0.4 mg PO DAILY Urinary issue #0 caps 11/21/23
valsartan 80 mg tablet 240 mg PO DAILY Blood pressure #0 tabs 11/21/23
Home Medication Changes
Imodium, Diovan, pravastatin discontinued
new
Valsartan, Flomax, Protonix, nifedipine, lidocaine, Lipitor
Pending Results: No
[2023-11-21 15:33] VITALS: BP 104/61
[2023-11-21] MEDS: LIPITOR 80 MG PO (17:19)
== END 2023-11-21 18:35 | DRG 40 ==
LOC: 4 WEST ACU 21:36
PROVIDERS: Hospitalist; Internal Medicine Cardiovascular Disease; Psychiatry & Neurology Neurology; Student in an Organized Health Care Education/Training Program; ADMITTING PHYSICIAN Hospitalist; ATTENDING PHYSICIAN Hospitalist; CONSULT PHYSICIAN Internal Medicine Infectious Disease; CONSULT PHYSICIAN Physical Medicine & Rehabilitation; CONSULT PHYSICIAN Psychiatry & Neurology Neurology; CONSULT PHYSICIAN Specialist; EMERGENCY PHYSICIAN Student in an Organized Health Care Education/Training Program; FAMILY PHYSICIAN Family Medicine; OTHER PHYSICIAN Internal Medicine; OTHER PHYSICIAN Internal Medicine Critical Care Medicine; OTHER PHYSICIAN Neurological Surgery
PROC: B24BZZ4 Ultrasonography of Heart with Aorta, Transesophageal (ICD-10-PCS; 2023-11-14)
PROC: 0TB68ZX Excision of Right Ureter, Via Natural or Artificial Opening Endoscopic, Diagnostic (ICD-10-PCS; 2023-11-16)
PROC: BT1D1ZZ Fluoroscopy of Right Kidney, Ureter and Bladder using Low Osmolar Contrast (ICD-10-PCS; 2023-11-16)
PROC: 0T768DZ Dilation of Right Ureter with Intraluminal Device, Via Natural or Artificial Opening Endoscopic (ICD-10-PCS; 2023-11-16)
PROC: 0JH602Z Insertion of Monitoring Device into Chest Subcutaneous Tissue and Fascia, Open Approach (ICD-10-PCS; 2023-11-16)
DX: I63.49 Cerebral infarction due to embolism of other cerebral artery (principal); G92.8 Other toxic encephalopathy; I60.9 Nontraumatic subarachnoid hemorrhage, unspecified; M62.82 Rhabdomyolysis; N17.9 Acute kidney failure, unspecified; I50.32 Chronic diastolic (congestive) heart failure; I13.0 Hypertensive heart and chronic kidney disease with heart failure and stage 1 through stage 4 chronic kidney disease, or unspecified chronic kidney disease; C66.1 Malignant neoplasm of right ureter; N13.6 Pyonephrosis; Z16.12 Extended spectrum beta lactamase (ESBL) resistance; E87.20 Acidosis, unspecified; J98.11 Atelectasis; E66.01 Morbid (severe) obesity due to excess calories; M81.0 Age-related osteoporosis without current pathological fracture; K21.9 Gastro-esophageal reflux disease without esophagitis; K27.9 Peptic ulcer, site unspecified, unspecified as acute or chronic, without hemorrhage or perforation; M10.9 Gout, unspecified; N18.30 Chronic kidney disease, stage 3 unspecified; E11.22 Type 2 diabetes mellitus with diabetic chronic kidney disease; E78.00 Pure hypercholesterolemia, unspecified; Z66 Do not resuscitate; E86.1 Hypovolemia; G89.4 Chronic pain syndrome; E87.6 Hypokalemia; E04.1 Nontoxic single thyroid nodule; E86.0 Dehydration; I25.10 Atherosclerotic heart disease of native coronary artery without angina pectoris; K76.0 Fatty (change of) liver, not elsewhere classified; J44.89 Other specified chronic obstructive pulmonary disease; G47.30 Sleep apnea, unspecified; M47.816 Spondylosis without myelopathy or radiculopathy, lumbar region; M47.814 Spondylosis without myelopathy or radiculopathy, thoracic region; I65.23 Occlusion and stenosis of bilateral carotid arteries; E88.09 Other disorders of plasma-protein metabolism, not elsewhere classified; Z68.39 Body mass index [BMI] 39.0-39.9, adult; Z79.82 Long term (current) use of aspirin; Z79.84 Long term (current) use of oral hypoglycemic drugs; Z79.899 Other long term (current) drug therapy; Z87.891 Personal history of nicotine dependence; Z91.198 Patient's noncompliance with other medical treatment and regimen for other reason; K52.9 Noninfective gastroenteritis and colitis, unspecified
CPT/HCPCS: 88305; 33285; 70450; 70546; 70547; 70551; 71045; 72072; 72110; 72125; 74177; 74420; 76000; 80048; 80053; 80061; 80306; 81003; 81015; 82077; 82140; 82150; 82248; 82533; 82550; 82607; 82962; 83036; 83540; 83550; 83605; 83690; 83735; 84100; 84132; 84145; 84425; 84443; 84484; 85014; 85018; 85025; 85027; 85610; 85730; 86140; 86780; 86850; 86900; 86901; 87040; 87045; 87046; 87077; 87086; 87150; 87186; 87205; 87324; 87328; 87329; 87427; 87449; 88341; 88342; 92523; 92526; 92610; 93005; 93306; 93312; 93320; 93325; 93880; 93970; 93971; 94640; 96361; 96374; 97116; 97163; 97167; 97530; 97535; 99291; A9585; C1758; C1764; C2617; J2185; Q9967